=== PATIENT | male | born 1970 | race Caucasian/White ===

== ENCOUNTER 2019-08-10 12:43 | Emergency (ER) | payer MEDICAID, SELFPAY ==
[2019-08-10 12:45] VITALS: BP 122/85; PULSE 93; RESP 16; TEMP 36.7; O2SAT 98; BMI 29.5
--- NOTE | 2019-08-10 13:03 | RAD_ITS ---
STUDY: X-RAY - LEFT KNEE REASON FOR EXAM: Male, 49 years old. FALL LAST SATURDAY. PAIN. TECHNIQUE: 4 view(s) of the knee. COMPARISON: None. FINDINGS: Normal visualized distal femur. Normal visualized proximal tibia and fibula. Normal proximal tibiofibular articulation. Normal medial femorotibial compartment. Normal lateral femorotibial compartment. Normal patellofemoral articulation. The soft tissue structures are unremarkable. RAD/Knee 4 or More Views IMPRESSION: Normal x-ray examination of the knee. Electronically Signed: Anuj Goldman, at 14:00 EST , Service support ,
--- NOTE | 2019-08-10 13:03 | RAD_ITS ---
STUDY: X-RAY - LEFT ELBOW REASON FOR EXAM: Male, 49 years old. FALL LAST SATURDAY. PAIN. TECHNIQUE: 3 view(s) of the elbow. COMPARISON: None. FINDINGS: Normal visualized humerus, radius and ulna. Normal radiocapitellar and ulnotrochlear articulations. The soft tissue structures are unremarkable. RAD/Elbow min 3 Views IMPRESSION: Normal x-ray examination of the elbow. Electronically Signed: Anuj Goldman, at 14:00 EST , Service support ,
--- NOTE | 2019-08-10 13:03 | RAD_ITS ---
STUDY: X-RAY CHEST REASON FOR EXAM: Male, 49 years old. COUGH, HISTORY OF ASTHMA. TECHNIQUE: PA and lateral views of the chest. COMPARISON: Comparison is made with prior examination dated June 03, 2012. FINDINGS: Stable minimal increased markings at the lung bases suggestive of mild basilar scarring. No focal infiltrate is seen. There is no demonstrated pleural abnormality. Normal size heart. Normal mediastinum and kim. Normal visualized pulmonary arteries. Normal visualized aortic arch and descending thoracic aorta. Normal visualized thoracic spine. Normal visualized ribs, clavicles, and shoulders. There is no demonstrated abnormality of the visualized soft tissue structures of the upper abdomen. RAD/Chest PA and Lateral IMPRESSION: Stable examination with mild degree of increased markings at the lung bases suggest mild basilar scarring. Electronically Signed: Anuj Goldman, at 14:01 EST , Service support ,
--- NOTE | 2019-08-10 13:03 | ED.VIS.GEN ---
History of Present Illness Chief Complaint: Lower Extremity Injury Narrative: Patient states that last week he slipped and fell on the ice injuring left elbow and left knee. He states he feels like his left elbow is dislocated and points near the olecranon as a source of pain. He points to the abrasion that is well-healing on the left anterior knee and states that the kneecap has been dislocated laterally. He also reports that he has had been diagnosed as a viral upper respiratory illness and wonders if he now has bronchitis. He is a smoker and has asthma. He uses Symbicort and pro-air. No fevers. Past Medical History - Allergies and Home Meds Allergies/Adverse Reactions: Allergies benzonatate [From Tessalon Perles] Allergy (Verified 08/10/19 12:45) Hives cefuroxime axetil [From Ceftin] Allergy (Verified 08/10/19 12:45) Hives cephalexin monohydrate [From Keflex] Allergy (Verified 08/10/19 12:45) Hives sulfamethoxazole [From Bactrim] Allergy (Verified 08/10/19 12:45) Itching trimethoprim [From Bactrim] Allergy (Verified 08/10/19 12:45) Itching acetaminophen [From [place]] Adverse Reaction (Verified 08/10/19 12:45) Upset Stomach hydrocodone Adverse Reaction (Verified 08/10/19 12:45) Upset Stomach hydrocodone bitartrate [From [place]] Adverse Reaction (Verified 08/10/19 12:45) Upset Stomach Primary Care Physician: [facility] Doctor,Out of [NON-STAFF] - Smoking Status: Current every day smoker Review of Systems General: Denies: Chills, Fever, Sweats Eyes: Denies: Visual changes - bilaterally, Diplopia ENT: Denies: Rhinorrhea, Sore throat Cardiovascular: Denies: Chest pain, Palpitations Respiratory: Reports: Dyspnea, Cough, Sputum. Denies: Dyspnea on exertion Gastrointestinal: Denies: Abdominal pain, Nausea, Vomiting, Diarrhea, Melena, Hematochezia Genitourinary: Denies: Dysuria, Hematuria, Frequency Musculoskeletal: Reports: Extremity Pain, -. Denies: Back pain Skin: Reports: Abrasions. Denies: Rash, Wounds Neurological: Denies: Headache, Weakness, Numbness Physical Exam Vital Signs/Narrative: Vital Signs Temp Pulse Resp BP Pulse Ox 08/10/19 12:45 98.1 F 93 16 122/85 H 98 Inital Vital Signs reviewed: Yes General: Well nourished, Well developed, No Acute Distress Head: Normocephalic, Atraumatic Eyes: Perrl, EOMI ENT: Moist mucous membranes, No rhinorrhea Neck: Supple, Nontender Cardiovascular: Regular rate, Regular rhythm, No murmurs Respiratory: No distress, Chest nontender, Rhonchi, Wheezing Abdomen: Soft, Nontender, Nondistended, Normal bowel sounds Back: Nontender, Normal Inspection Extremities: No edema, Tenderness - Tenderness palpation the posterior aspect of the left elbow. Full range of motion. Skin: Normal color, No rash Neurological: Alert, Oriented x3, Cranial nerves II-XII grossly intact, Normal Strength, Normal Sensation Psychological: Normal affect, Normal Mood Diagnostic/Tx/Re-eval - Medical Decision Making Test x-ray was negative for infiltrate. X-rays of the elbow and the left knee were negative for acute fracture. He will be discharged home with supportive care. For his breathing a encouraged him to use his albuterol MDI as well as prescribing him a course of prednisone. Follow-up as needed with primary care return if worsening or concerns ED Disposition - Plan for ED Patient: Disposition: Psychiatric Hospital or Unit Diagnosis: Left elbow contusion, Contusion of left knee, Bronchitis Instructions: BRONCHITIS with Wheezing (Child) Prescriptions: Prednisone [Deltasone] 60 mg PO DAILY #15 tab Prescription Printed Referrals: [facility],Out of [NON-STAFF] - Additional Instructions: Please follow-up with your primary care physician. I would recommend using your albuterol MDI 3 puffs every 3 hours at minimum.
== END 2019-08-10 14:48 | disposition home or self-care (01) ==
PROVIDERS: Emergency Provider Emergency Medicine; PCP Family Medicine
DX: S50.02XA Contusion of left elbow, initial encounter (principal); S80.02XA Contusion of left knee, initial encounter; W00.0XXA Fall on same level due to ice and snow, initial encounter; J40 Bronchitis, not specified as acute or chronic; Z88.1 Allergy status to other antibiotic agents; Z88.2 Allergy status to sulfonamides; Z88.5 Allergy status to narcotic agent
CPT/HCPCS: 71046; 73080; 73564; 99283

== ENCOUNTER 2020-06-30 10:50 | Emergency (ER) | payer MEDICAID, SELFPAY ==
[2020-06-30 10:51] VITALS: BP 150/101; PULSE 91; RESP 20; TEMP 36.1; O2SAT 96; BMI 31.4
--- NOTE | 2020-06-30 10:52 | EKG12_ITS ---
Test Reason : DYSRHYTHMIA Blood Pressure : / mmHG Vent. Rate : 090 BPM Atrial Rate : 090 BPM P-R Int : 176 ms QRS Dur : 098 ms QT Int : 356 ms P-R-T Axes : 011 001 -04 degrees QTc Int : 435 ms Normal sinus rhythm Normal ECG Confirmed by MAXIMILIAN ACHARYA, HALEY ([id number]), clinical editor SYLVIE MCDONALD ([id number]) on 07/06/2020 10:21:51 AM Referred By: AMANDA Confirmed By:PABLO YAO MD
--- NOTE | 2020-06-30 10:52 | RAD_ITS ---
STUDY: X-RAY CHEST REASON FOR EXAM: Male, 50 years old. CHEST PAINS X SEVERAL DAYS TECHNIQUE: Single AP portable view of the chest. COMPARISON: Comparison is made with prior study dated 08/10/2019. FINDINGS: EKG electrodes are seen. There is evidence of vascular congestion and mild CHF with bibasilar atelectasis/infiltrates slightly worse on the right side. There is no demonstrated pleural abnormality. Normal size heart. Normal mediastinum and kim. Normal visualized pulmonary arteries. Normal visualized aortic arch and descending thoracic aorta. Normal visualized thoracic spine. Normal visualized ribs, clavicles, and shoulders. There is no demonstrated abnormality of the visualized soft tissue structures of the upper abdomen. RAD/Chest 1 View (Portable) IMPRESSION: Findings suggestive of a mild degree of CHF with the bibasilar atelectasis and/or infiltrates worse at the right lung base. Electronically Signed: Anuj Goldman, at 11:19 EST , Service support ,
--- NOTE | 2020-06-30 11:07 | ED.VIS.GEN ---
History of Present Illness Chief Complaint: Chest Other Informant: Patient Narrative: 50-year-old male states that he just recovered from Covid. Tells me his positive test was June 15. States that beginning last he has been experiencing shortness of breath. He has been to outside hospital multiple times. He states they have done chest x-rays, CTA, breathing treatments, and he has been on azithromycin. He states he did go there today because he was near here. He states he quit smoking when he developed Covid. He states he takes inhalers for asthma. Patient eddie presents dramatically in triage clutching his chest saying he cannot breathe. However once you talk to him he calms down begins breathing 18 times a minute has a pulse ox of 97% on room air. He was not tachycardic. He was brought back to the room for evaluation. Past Medical History - Allergies and Home Meds Allergies/Adverse Reactions: Allergies benzonatate [From Tessalon Perles] Allergy (Verified 06/30/20 11:15) Hives cefuroxime axetil [From Ceftin] Allergy (Verified 06/30/20 11:15) Hives cephalexin monohydrate [From Keflex] Allergy (Verified 06/30/20 11:15) Hives sulfamethoxazole [From Bactrim] Allergy (Verified 06/30/20 11:15) Itching trimethoprim [From Bactrim] Allergy (Verified 06/30/20 11:15) Itching acetaminophen [From [place]] Adverse Reaction (Verified 06/30/20 11:15) Upset Stomach hydrocodone Adverse Reaction (Verified 06/30/20 11:15) Upset Stomach hydrocodone bitartrate [From [place]] Adverse Reaction (Verified 06/30/20 11:15) Upset Stomach Primary Care Physician: Rhonda Padilla DO [Primary Care Provider] - Past Medical History: - - Anxiety PTSD asthma Surgical History: noncontributory Smoking Status: Current every day smoker Drugs: - - Denies Review of Systems General: Denies: Chills, Fever, Sweats Eyes: Denies: Visual changes - bilaterally, Diplopia ENT: Denies: Rhinorrhea, Sore throat Cardiovascular: Denies: Chest pain, Palpitations Respiratory: Reports: Dyspnea, Cough, Dyspnea on exertion Gastrointestinal: Denies: Abdominal pain, Nausea, Vomiting, Diarrhea, Melena, Hematochezia Genitourinary: Denies: Dysuria, Hematuria, Frequency Musculoskeletal: Denies: Back pain, Extremity Pain Skin: Denies: Rash, Wounds Neurological: Denies: Headache, Weakness, Numbness Physical Exam Vital Signs/Narrative: Vital Signs Temp Pulse Resp BP Pulse Ox 06/30/20 10:51 97 F L 91 20 H 150/101 H 96 Inital Vital Signs reviewed: Yes General: Well nourished, Well developed, No Acute Distress Head: Normocephalic, Atraumatic Eyes: Perrl, EOMI ENT: Moist mucous membranes, No rhinorrhea Neck: Supple, Nontender Cardiovascular: Regular rate, Regular rhythm, No murmurs Respiratory: No distress, Chest nontender, Wheezing - Light expiratory wheeze Abdomen: Soft, Nontender, Nondistended, Normal bowel sounds Back: Nontender, Normal Inspection Extremities: Nontender, No edema Skin: Normal color, No rash Neurological: Alert, Oriented x3, Cranial nerves II-XII grossly intact, Normal Strength, Normal Sensation Psychological: Normal affect, Normal Mood Diagnostic/Tx/Re-eval Clinical Impression(s) from Imaging Studies Chest X-Ray 06/30/20 10:52 IMPRESSION: Findings suggestive of a mild degree of CHF with the bibasilar atelectasis and/or infiltrates worse at the right lung base. Electronically Signed: Anuj Goldman, at 11:19 EST , Service support , Laboratory Last Values WBC 9.6 K/mm3 (4.4-11.0) 06/30/20 11:12 RBC 4.86 M/mm3 (4.6-6.2) 06/30/20 11:12 Hgb 14.0 g/dL (13.0-16.5) 06/30/20 11:12 Hct 41.8 % (40-54) 06/30/20 11:12 MCV 86.0 fL (80-94) 06/30/20 11:12 MCH 28.8 pg (27.0-32.0) 06/30/20 11:12 MCHC 33.5 g/dL (32-36) 06/30/20 11:12 RDW Std Deviation 38.8 fl (35.1-43.9) 06/30/20 11:12 RDW Coeff of Hai 12.3 % (11.6-14.6) 06/30/20 11:12 Plt Count 248 K/mm3 (150-450) 06/30/20 11:12 MPV 9.4 fl (6.2-12.0) 06/30/20 11:12 Immature Gran % (Auto) 0.400 % (0.0-0.9) 06/30/20 11:12 Neut % (Auto) 69.1 % (47-70) 06/30/20 11:12 Lymph % (Auto) 18.8 % (19-41) L 06/30/20 11:12 Long % (Auto) 9.8 % (0-10) 06/30/20 11:12 Eos % (Auto) 1.6 % (0-5) 06/30/20 11:12 Baso % (Auto) 0.3 % (0-1) 06/30/20 11:12 Absolute Neuts (auto) 6.7 X10^3/uL (2.0-7.7) 06/30/20 11:12 Absolute Lymphs (auto) 1.81 X10^3/uL (0.83-4.51) 06/30/20 11:12 Nucleated RBC % 0 % (0-5) 06/30/20 11:12 Reactive Lymphocytes 1+ 06/30/20 11:12 Sodium 135 mmol/L (136-145) L 06/30/20 11:12 Potassium 3.6 mmol/L (3.5-5.1) 06/30/20 11:12 Chloride 101 mmol/L (98-107) 06/30/20 11:12 Carbon Dioxide 27.0 mmol/L (21.0-32.0) 06/30/20 11:12 Anion Gap 7 (5-15) 06/30/20 11:12 BUN 6 mg/dL (7-18) L 06/30/20 11:12 Creatinine 0.91 mg/dL (0.70-1.30) 06/30/20 11:12 Estim Creat Clear Calc 112.19 ml/min 06/30/20 11:12 Est GFR (MDRD) Af Amer 114 mL/min (>60) 06/30/20 11:12 Est GFR (MDRD) Non-Af 94 mL/min (>60) 06/30/20 11:12 BUN/Creatinine Ratio 6.6 RATIO (10-20) L 06/30/20 11:12 Glucose 163 mg/dL (74-106) H 06/30/20 11:12 Calcium 8.9 mg/dL (8.5-10.1) 06/30/20 11:12 Troponin I < 0.015 ng/mL (<0.045) 06/30/20 11:12 B-Natriuretic Peptide 2.6 pg/mL (0-100) 06/30/20 11:12 - EKG Initial EKG Interpretation: Sinus Rhythm - KG demonstrates a normal sinus rhythm at a rate of 90 without concerning features of ACS or ectopy - Medical Decision Making Patient's work-up here is essentially negative. His lung sounds are clear to after a DuoNeb. I also gave him prednisone and a dose of Ativan. Watching him outside of his room and on the monitor he is breathing normally in the satting normal. Clifford walk into the room he becomes tachypneic. I will prescribe the patient prednisone. Advised him that he should use his inhaler every couple hours. And when to get him a pocket chamber. Follow-up with primary care ED Disposition - Plan for ED Patient: Disposition: Home or Assisted Living Diagnosis: Wheezing, Dyspnea Prescriptions: Prednisone [Deltasone] 60 mg PO DAILY #15 tab Prescription Printed Referrals: Rhonda Padilla DO [Primary Care Provider] - As soon as possible
[2020-06-30 11:14] VITALS: PULSE 94; RESP 22
[2020-06-30] MEDS: predniSONE 20 MG Tablet 60 MG PO (11:14)
[2020-06-30] MEDS: Ipratropium/Albuterol Sulfate 3 ML AMPUL.NEB INHALATION (11:14)
[2020-06-30] MEDS: LORazepam 0.5 MG Tablet PO (11:14)
[2020-06-30 11:15] VITALS: O2SAT 97
[2020-06-30 11:18] LABS: Absolute Lymphocyte Count 1.81 X10^3/uL (0.83-4.51); Absolute Neutrophil Count 6.7 X10^3/uL (2.0-7.7); Basophil# 0.03 X10^3/uL; Basophil% 0.3 % (0-1); Eosinophil# 0.15 X10^3/uL; Eosinophils% 1.6 % (0-5); Hematocrit 41.8 % (40-54); Lymphocyte # 1.81 X10^3/ul (4.0); Lymphocyte % 18.8 % (19-41); Mean Corp Hgb Conc 33.5 g/dL (32-36); Mean Corpuscular Hgb 28.8 pg (27.0-32.0); Mean Platelet Vol. 9.4 fl (6.2-12.0); Monocyte# 0.94 X10^3/uL; Monocyte% 9.8 % (0-10); NRBC Flagged by Analyzer 0 % (0-5); Neutrophil # 6.66 X10^3/uL (2.7-7.7); Neutrophil % 69.1 % (47-70); POSITIVE MORPHOLOGY YES; Platelet Count 248 K/mm3 (150-450); RBC Distribution Width CV 12.3 % (11.6-14.6); RBC Distribution Width SD 38.8 fl (35.1-43.9); Red Blood Count 4.86 M/mm3 (4.6-6.2); White Blood Count 9.6 K/mm3 (4.4-11.0)
[2020-06-30 11:20] LABS: Differential Indicated SCAN CRITERIA MET
[2020-06-30 11:39] LABS: Anion Gap 7 (5-15); BUN 6 mg/dL (7-18); BUN/Creat Ratio 6.6 RATIO (10-20); Calcium,Total 8.9 mg/dL (8.5-10.1); Chloride 101 mmol/L (98-107); Creatinine, Serum 0.91 mg/dL (0.70-1.30); EST Glomerular Filtration Rate 94 mL/min (>60); Est Glom Filt Rate - Afr Amer 114 mL/min (>60); Estimated Creatinine Clearance 112.19 ml/min; Glucose 163 mg/dL (74-106); Potassium 3.6 mmol/L (3.5-5.1); Sodium Level 135 mmol/L (136-145)
[2020-06-30 12:02] LABS: Reactive Lymphocyte 1+
[2020-06-30 12:25] LABS: BNP,B-Type NATRIURETIC PEPTIDE 2.6 pg/mL (0-100)
[2020-06-30] MEDS: INHALER, ASSIST DEVICES 1 EACH SPACER INHALATION (12:38)
== END 2020-06-30 12:39 | disposition home or self-care (01) ==
PROVIDERS: Emergency Provider Emergency Medicine; PCP Family Medicine
DX: R06.2 Wheezing (principal); R06.00 Dyspnea, unspecified; J45.909 Unspecified asthma, uncomplicated; F17.200 Nicotine dependence, unspecified, uncomplicated; Z88.1 Allergy status to other antibiotic agents; Z88.2 Allergy status to sulfonamides; Z88.5 Allergy status to narcotic agent; Z86.19 Personal history of other infectious and parasitic diseases
CPT/HCPCS: 71045; 80048; 83880; 84484; 85025; 93005; 94640; 99284; A4216

== ENCOUNTER → 2020-10-28 09:03 | Outpatient (CLI) | payer MEDICAID, SELFPAY ==
[2020-10-28 10:34] LABS: Hemoglobin A1c 9.3 % (3.8-5.6)
[2020-10-28 10:42] LABS: Cholesterol 226 mg/dL (200); High Density Lipoprotein 50 mg/dL; Triglycerides 153 mg/dL; Very Low Density Lipoprotein 31 mg/dL (5-40)
== END ==
PROVIDERS: PCP Family Medicine; Referring Provider Family Medicine; Visit Provider Family Medicine
DX: E11.65 Type 2 diabetes mellitus with hyperglycemia (principal)
CPT/HCPCS: 36415; 80061; 83036

== ENCOUNTER 2020-12-23 17:38 | Emergency (ER) | payer MEDICAID, SELFPAY ==
[2020-12-23 17:39] VITALS: BP 112/79; PULSE 107; RESP 35; TEMP 36.5; O2SAT 97; BMI 32.2
[2020-12-23 17:59] VITALS: BP 159/137; PULSE 98; RESP 20; TEMP 36.7; O2SAT 99
--- NOTE | 2020-12-23 18:01 | EKG12_ITS ---
Test Reason : Blood Pressure : / mmHG Vent. Rate : 096 BPM Atrial Rate : 096 BPM P-R Int : 180 ms QRS Dur : 094 ms QT Int : 352 ms P-R-T Axes : 019 002 003 degrees QTc Int : 444 ms Normal sinus rhythm with sinus arrhythmia Minimal voltage criteria for LVH, may be normal variant Cannot rule out Anterior infarct , age undetermined Abnormal ECG Confirmed by JUANY ACHARYA, BERNY ([id number]), film editor SYLVIE MCDONALD ([id number]) on 12/26/2020 1:37:34 PM Referred By: SOUMYA Confirmed By:BERNY HARRINGTON MD
--- NOTE | 2020-12-23 18:02 | EDS_ITS ---
HPI History of Present Illness Chief Complaint: General Illness Informant: patient Onset/Context/Timing Onset: Days Context: Gradual Onset Current Severity: Moderate Maximum Severity: Moderate Narrative Narrative: Patient presents with multiple complaints. He states he has been working 3 full-time jobs for the last 11 days and has not slept. He reports having chest pressure over the past 3 days. He thinks he just exhausted himself to the point where he now has nausea, vomiting, chest pressure, shortness of breath. Patient did have Covid late 2019. No fever currently. [facility] Medical History (Updated 12/23/20 @ 19:[address] Margi Quintana MD) Acid reflux Anxiety Diabetes High cholesterol Hypertension Insomnia Home Medications lisinopril 10 mg PO DAILY 06/14/14 [History Last Taken Unknown] simvastatin 10 mg PO QHS 03/29/17 [History Last Taken Unknown] famotidine 40 mg PO QHS 06/30/20 [History Last Taken Unknown] glyburide 10 mg PO BID 06/30/20 [History Last Taken Unknown] insulin glargine 14 units SQ DAILY 06/30/20 [History Last Taken Unknown] pioglitazone 45 mg PO DAILY 06/30/20 [History Last Taken Unknown] potassium chloride 20 meq PO BID 06/30/20 [History Last Taken Unknown] prednisone 60 mg PO DAILY #15 tab 06/30/20 [Rx Last Taken Unknown] venlafaxine 150 mg PO DAILY 06/30/20 [History Last Taken Unknown] budesonide-formoterol [Symbicort] 2 puff INHALATION BID #10.2 g 12/23/20 [Rx Last Taken Unknown] ondansetron 4 mg PO Q8H PRN #10 tab 12/23/20 [Rx Last Taken Unknown] tiotropium bromide [Spiriva Respimat] 1 puff INHALATION DAILY #4 g 12/23/20 [Rx Last Taken Unknown] Allergy/AdvReac Type Severity Reaction Status Date / Time benzonatate Allergy Hives Verified 12/23/20 17:39 [From Tessalon Perles] cefuroxime axetil Allergy Hives Verified 12/23/20 17:39 [From Ceftin] cephalexin monohydrate Allergy Hives Verified 12/23/20 17:39 [From Keflex] sulfamethoxazole Allergy Itching Verified 12/23/20 17:39 [From Bactrim] trimethoprim [From Bactrim] Allergy Itching Verified 12/23/20 17:39 acetaminophen [From [place]] AdvReac Upset Verified 12/23/20 17:39 Stomach hydrocodone AdvReac Upset Verified 12/23/20 17:39 Stomach hydrocodone bitartrate AdvReac Upset Verified 12/23/20 17:39 [From [place]] Stomach Social History Smoking Status: Current every day smoker tobacco type: cigarettes ROS ROS ED Constitutional Constitutional ED: Denies chills or fever(s) Eyes Eyes: Denies change in vision ENT ENT ED: Denies sore throat Cardiovascular Cardiovascular: Reports chest pain Respiratory/Chest Respiratory/Chest: Denies cough or dyspnea Gastrointestinal Gastrointestinal: Reports nausea and vomiting; Denies diarrhea Genitourinary Genitourinary ED: Denies dysuria Musculoskeletal Musculoskeletal: Reports myalgias; Denies back pain Integumentary Denies rash Neurologic Neurologic: Denies headache(s) or weakness Psychiatric Psychiatric: Denies anxiety or depression Endocrine Endocrinology: Reports polydipsia; Denies polyuria Allergic/Immunologic Allergic/Immunologic ED: Denies urticaria EXAM Physical Exam Const Vital Signs: 12/23/20 17:39 12/23/20 17:59 12/23/20 18:43 Temperature 97.7 F L 98.1 F 98.1 F Temperature Source Temporal Temporal Temporal Pulse Rate 107 H 98 99 Respiratory Rate 35 H 20 H 17 Respiratory Effort Short of Breath Labored Respiratory Pattern Tachypnea Blood Pressure 112/79 159/137 H 123/71 H Blood Pressure Mean 90 144 88 Pulse Ox 97 99 98 Oxygen Delivery Method Room Air Room Air Room Air 12/23/20 19:00 Temperature 98.0 F Temperature Source Oral Pulse Rate 100 Respiratory Rate 18 Respiratory Effort Respiratory Pattern Blood Pressure 159/108 H Blood Pressure Mean 125 Pulse Ox 97 Oxygen Delivery Method Room Air Positive well nourished and well developed General Appearance ED: well developed HEENT Reports normocephalic and head/scalp atraumatic Eyes PERRL and EOMs intact bilaterally Neck supple Chest Wall inspection of chest normal and palpation of chest normal Resp normal respiratory effort and clear to auscultation bilaterally Cardio regular rhythm Rate: tachycardic GI non-tender Auscultation: hypoactive bowel sounds Palpation: soft Extremity normal to inspection Neuro oriented x3 and no sensory deficits noted Sensorium / Orientation: alert Motor Exam: strength 5/5 throughout Psych mental status grossly normal Skin no rashes or lesions noted MDM MDM MDM Narrative Medical decision making narrative: IV was established and patient was given a liter IV fluid. Patient is placed on color television console monitor and EKG, labs, chest x-ray obtained. Lab Data Attestation: I reviewed the patient's lab results. Labs: Laboratory Results - last 24 hr 12/23/20 12/23/20 12/23/20 18:10 18:10 18:44 WBC 13.0 H RBC 5.19 Hgb 15.1 Hct 45.5 MCV 87.7 MCH 29.1 MCHC 33.2 RDW Std Deviation 45.2 H RDW Coeff of Hai 14.2 Plt Count 302 MPV 9.6 Immature Gran % (Auto) 0.400 Neut % (Auto) 72.8 H Lymph % (Auto) 17.2 L [place] % (Auto) 8.4 Eos % (Auto) 0.8 Baso % (Auto) 0.4 Absolute Neuts (auto) 9.5 H Absolute Lymphs (auto) 2.23 Nucleated RBC % 0 Sodium 142 Potassium 3.3 L Chloride 109 H Carbon Dioxide 23.0 Anion Gap 10 BUN 13 Creatinine 0.94 Estim Creat Clear Calc 114.86 Est GFR (MDRD) Af Amer 109 Est GFR (MDRD) Non-Af 90 BUN/Creatinine Ratio 13.8 Glucose 151 H Calcium 9.4 Total Bilirubin 0.80 Direct Bilirubin 0.22 AST 32 ALT 30 Alkaline Phosphatase 138 H Troponin I < 0.015 Total Protein 7.4 Albumin 3.8 Globulin 3.6 Urine Color Yellow Urine Clarity Clear Urine pH 5.0 Ur Specific [place] 1.025 Urine Protein 30 H Urine Glucose (UA) Normal Urine Ketones 150 A* Urine Occult Blood Negative Urine Nitrite Negative Urine Bilirubin Negative Urine Urobilinogen 1 H Ur Leukocyte Esterase 25 H Urine RBC 0-5 SEEN Urine WBC 0 SEEN Ur Squamous Epith Cells 0 SEEN Urine Bacteria 0 SEEN Hyaline Casts 5-10 SEEN Urine Mucus 3+ Radiography Chest X-Ray - ED: 1 View, Normal, Heart, Lungs and Mediastinum Diagnostic Testing: Radiology Impression Chest X-Ray 12/23/20 18:18 IMPRESSION: No radiographic evidence of acute cardiopulmonary disease. at 1828 Reported and signed by: Eleazar Roper MD Electronically Signed: Eleazar Roper MD at 18:27 EDT Tel , Service support , EKG Initial EKG: Attestation: I personally reviewed and interpreted this EKG as follows: Interpretation: Sinus Rhythm (Sinus at 96 with no acute ischemia.) Treatment and Re-Evaluation Comments:: Once EKG was obtained and normal QTC noted patient was given Zofran for his nausea. On repeat evaluation he does feel improved. He will be given prescriptions for Zofran and he did ask for refills on his Symbicort and Spiriva as he cannot find those medications. They will be sent to the pharmacy for him. Discharge Plan Triage Chief Complaint: General Illness ED Provider: Margi Quintana Dx/Rx/DC Orders Clinical Impression: Dehydration Instructions: ED Dehydration (Adult) Prescriptions: New ondansetron 4 mg tablet,disintegrating 4 mg PO Q8H PRN (Reason: nausea and vomiting) Qty: 10 RF: 0 budesonide-formoterol [Symbicort] 160-4.5 mcg/actuation HFA aerosol inhaler 2 puff inhalation BID Qty: 10.2 RF: 0 Spiriva Respimat 1.25 mcg/actuation mist 1 puff inhalation DAILY Qty: 4 RF: 0 No Action lisinopril 10 MG tablet 10 mg PO DAILY RF: 0 simvastatin 10 MG tablet 10 mg PO QHS RF: 0 glyburide 5 MG tablet 10 mg PO BID RF: 0 famotidine 40 MG tablet 40 mg PO QHS RF: 0 venlafaxine 150 MG capsule 150 mg PO DAILY RF: 0 pioglitazone 45 MG tablet 45 mg PO DAILY RF: 0 potassium chloride 20 MEQ tablet 20 meq PO BID RF: 0 insulin glargine 100 UNITS/ML insulin pen 14 units SQ DAILY RF: 0 prednisone 20 MG tablet 60 mg PO DAILY Qty: 15 RF: 0 Primary Care Provider: Rhonda Padilla Referrals: Rhonda Padilla DO [Primary Care Provider] - 1 Week Disposition Disposition: Home, self care
--- NOTE | 2020-12-23 18:18 | RAD_ITS ---
EXAM: XR CHEST, 1 VIEW : 1970 CLINICAL INDICATION: cp TECHNIQUE: Frontal view of the chest. This report was created using [employer] report generation technology. COMPARISON: 06/30/2020 FINDINGS: LUNGS AND PLEURAL SPACES: Unremarkable. No consolidation or edema. No pneumothorax. No effusion. HEART: Unremarkable. Cardiac silhouette not enlarged. MEDIASTINUM: Central airways and mediastinal contour are unremarkable. BONES/JOINTS: Unremarkable. SOFT TISSUES: Unremarkable. RAD/Chest 1 View (Portable) IMPRESSION: No radiographic evidence of acute cardiopulmonary disease. at 1828 Reported and signed by: Eleazar Roper MD Electronically Signed: Eleazar Roper MD at 18:27 EDT Tel , Service support ,
[2020-12-23 18:21] LABS: Absolute Lymphocyte Count 2.23 X10^3/uL (0.83-4.51); Absolute Neutrophil Count 9.5 X10^3/uL (2.0-7.7); Basophil# 0.05 X10^3/uL; Basophil% 0.4 % (0-1); Eosinophils% 0.8 % (0-5); Hematocrit 45.5 % (40-54); Hemoglobin 15.1 g/dL (13.0-16.5); Lymphocyte # 2.23 X10^3/ul (0.83-4.51); Lymphocyte % 17.2 % (19-41); Mean Corp Hgb Conc 33.2 g/dL (32-36); Mean Corpuscular Hgb 29.1 pg (27.0-32.0); Mean Corpuscular Volume 87.7 fL (80-94); Mean Platelet Vol. 9.6 fl (6.2-12.0); Monocyte# 1.09 X10^3/uL; Monocyte% 8.4 % (0-10); NRBC Flagged by Analyzer 0 % (0-5); Neutrophil # 9.47 X10^3/uL (2.7-7.7); Neutrophil % 72.8 % (47-70); Platelet Count 302 K/mm3 (150-450); RBC Distribution Width CV 14.2 % (11.6-14.6); RBC Distribution Width SD 45.2 fl (35.1-43.9); Red Blood Count 5.19 M/mm3 (4.6-6.2)
[2020-12-23] MEDS: 0.9% Normal Saline 1,000 ML 1000 ML IV (18:23)
[2020-12-23 18:42] LABS: AST(SGOT) 32 U/L (15-37); Alanine Aminotransfer ALT/SGPT 30 U/L (16-61); Albumin, Serum 3.8 g/dL (3.2-5.0); Alkaline Phosphatase 138 U/L (45-117); Anion Gap 10 (5-15); BUN 13 mg/dL (7-18); BUN/Creat Ratio 13.8 RATIO (10-20); Bilirubin, Direct 0.22 mg/dL (0.00-0.30); Calcium,Total 9.4 mg/dL (8.5-10.1); Chloride 109 mmol/L (98-107); Creatinine, Serum 0.94 mg/dL (0.70-1.30); EST Glomerular Filtration Rate 90 mL/min (>60); Est Glom Filt Rate - Afr Amer 109 mL/min (>60); Estimated Creatinine Clearance 114.86 ml/min; Globulin 3.6 g/dL (2.2-4.2); Glucose 151 mg/dL (74-106); Potassium 3.3 mmol/L (3.5-5.1); Protein, Total 7.4 g/dL (6.4-8.2); Sodium Level 142 mmol/L (136-145)
[2020-12-23 18:43] VITALS: BP 123/71; PULSE 99; RESP 17; TEMP 36.7; O2SAT 98
[2020-12-23] MEDS: Ketorolac 30 MG/ML Syringe IV (18:46)
[2020-12-23] MEDS: Ondansetron 4 MG/2 ML Vial IV (18:46)
[2020-12-23 18:59] LABS: Bacteria 0 SEEN /hpf (None Seen); Squamous Epithelial Cells - UA 0 SEEN /hpf (0-5); White Blood Cells 0 SEEN /hpf (0-5)
[2020-12-23 19:00] VITALS: BP 159/108; PULSE 100; RESP 18; TEMP 36.7; O2SAT 97
[2020-12-23 19:02] LABS: Color, Urine Yellow (Yellow); Glucose, Dipstick Normal (Normal); Leukocyte Esterase-Dipstick 25 /ul (Negative); Nitrite-Dipstick Negative (Negative); Occult Blood-Urine Negative /ul (Negative); Protein-Dipstick 30 mg/dl (Negative); Specific Gravity, Urine 1.025 (1.002-1.030); Urine Bilirubin Dipstick Negative (Negative); Urine Clarity Clear (Clear); Urine Urobilinogen 1 mg/dl (Normal)
[2020-12-23 19:05] LABS: Ketone-Dipstick 150 mg/dl (Negative)
[2020-12-23 19:11] LABS: Mucous, Urine 3+ /hpf (<or=2+); Red Blood Cells-Urine 0-5 SEEN /hpf (0-5)
[2020-12-23 19:12] LABS: Hyaline Cast 5-10 SEEN /lpf (0-5)
[2020-12-23 19:38] VITALS: BP 200/166; PULSE 90; RESP 22; O2SAT 95
[2020-12-23] MEDS: 0.9% Normal Saline 1,000 ML 150 ML IV (19:40)
[2020-12-23 19:50] VITALS: BP 129/55; PULSE 90; RESP 18; O2SAT 99
== END 2020-12-23 19:51 | disposition home or self-care (01) ==
PROVIDERS: Emergency Provider Emergency Medicine; PCP Family Medicine
DX: E86.0 Dehydration (principal); R11.2 Nausea with vomiting, unspecified; F17.210 Nicotine dependence, cigarettes, uncomplicated; E78.00 Pure hypercholesterolemia, unspecified; I10 Essential (primary) hypertension; E11.9 Type 2 diabetes mellitus without complications; F41.9 Anxiety disorder, unspecified; K21.9 Gastro-esophageal reflux disease without esophagitis; G47.00 Insomnia, unspecified
CPT/HCPCS: 71045; 80048; 80076; 81001; 84484; 85025; 93005; 99285; J7030; J2405

== ENCOUNTER 2021-01-06 23:05 | Emergency (ER) | payer MEDICAID, SELFPAY ==
[2021-01-06 23:07] VITALS: BP 157/81; PULSE 85; RESP 16; TEMP 36.7; O2SAT 95; BMI 33.1
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
[2021-01-07] MEDS: oxyCODONE 5 MG Tablet 10 MG PO (00:29)
[2021-01-07] MEDS: Doxycycline 100 MG CAPSULE PO (00:29)
== END 2021-01-07 00:35 | disposition home or self-care (01) ==
LOC: ED 01-07 00:12
PROVIDERS: Emergency Provider Emergency Medicine; PCP Family Medicine
DX: T21.29XA Burn of second degree of other site of trunk, initial encounter (principal); T21.26XA Burn of second degree of male genital region, initial encounter; X08.8XXA Exposure to other specified smoke, fire and flames, initial encounter; Y93.9 Activity, unspecified; Y92.89 Other specified places as the place of occurrence of the external cause; Y99.9 Unspecified external cause status; F17.210 Nicotine dependence, cigarettes, uncomplicated; K21.9 Gastro-esophageal reflux disease without esophagitis; F41.9 Anxiety disorder, unspecified; E11.9 Type 2 diabetes mellitus without complications; E78.00 Pure hypercholesterolemia, unspecified; I10 Essential (primary) hypertension; G47.00 Insomnia, unspecified
CPT/HCPCS: 99285

== ENCOUNTER 2021-03-31 05:54 | Emergency (ER) | payer MEDICAID, SELFPAY ==
[2021-03-31 05:55] VITALS: BP 96/68; PULSE 88; RESP 18; TEMP 36.6; O2SAT 96; BMI 29.4
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
[2021-03-31 06:25] LABS: Bedside Glucose 104 mg/dL (70-110)
[2021-03-31 06:53] VITALS: BP 96/68; PULSE 88; RESP 18; O2SAT 96
== END 2021-03-31 06:54 | disposition home or self-care (01) ==
LOC: ED 06:36
PROVIDERS: Emergency Provider Emergency Medicine; PCP Family Medicine
DX: S20.219A Contusion of unspecified front wall of thorax, initial encounter (principal); Y09 Assault by unspecified means; E11.9 Type 2 diabetes mellitus without complications; E78.00 Pure hypercholesterolemia, unspecified; F41.9 Anxiety disorder, unspecified; G47.00 Insomnia, unspecified; I10 Essential (primary) hypertension; K21.9 Gastro-esophageal reflux disease without esophagitis; F17.210 Nicotine dependence, cigarettes, uncomplicated; Z59.0 Homelessness; Z79.4 Long term (current) use of insulin; Z79.51 Long term (current) use of inhaled steroids
CPT/HCPCS: 71045; 82962; 99284

== ENCOUNTER 2021-05-11 09:12 | Emergency (ER) | payer MEDICAID, SELFPAY ==
[2021-05-11 09:13] VITALS: BP 116/84; PULSE 82; RESP 16; TEMP 36.6; O2SAT 97; BMI 23.1
--- NOTE | 2021-05-11 10:03 | RAD_ITS ---
STUDY: X-RAY - RIGHT KNEE REASON FOR EXAM: Male, 50 years old. Injury. Pain. TECHNIQUE: 4 view(s) of the knee. COMPARISON: None. FINDINGS: Normal visualized distal femur. Normal visualized proximal tibia and fibula. Normal proximal tibiofibular articulation. Medial compartmental arthrosis. Normal lateral femorotibial compartment. Normal patellofemoral articulation. The soft tissue structures are unremarkable. RAD/Knee 4 or More Views IMPRESSION: Medial compartmental arthrosis. No acute abnormality. Electronically Signed: Jeff Stewart MD at 10:37 EDT , Service support ,
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
[2021-05-11] MEDS: Morphine 2 MG/ML Syringe IM (10:35)
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
[2021-05-11 11:32] VITALS: BP 115/62; PULSE 66; RESP 16; O2SAT 97
== END 2021-05-11 11:32 | disposition home or self-care (01) ==
PROVIDERS: Emergency Provider Emergency Medicine; PCP Family Medicine
DX: S83.91XA Sprain of unspecified site of right knee, initial encounter (principal); Y93.01 Activity, walking, marching and hiking; X50.1XXA Overexertion from prolonged static or awkward postures, initial encounter; Y92.89 Other specified places as the place of occurrence of the external cause; Y99.9 Unspecified external cause status; R07.89 Other chest pain; M17.11 Unilateral primary osteoarthritis, right knee; F17.210 Nicotine dependence, cigarettes, uncomplicated; Z79.84 Long term (current) use of oral hypoglycemic drugs; Z79.51 Long term (current) use of inhaled steroids; Z91.81 History of falling
CPT/HCPCS: 71101; 73564; 96372; 99282

== ENCOUNTER 2021-07-08 15:48 | Emergency (ER) | payer MEDICAID, SELFPAY ==
[2021-07-08 15:49] VITALS: PULSE 65; RESP 19; TEMP 36.4; O2SAT 97; BMI 29.1
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
--- NOTE | 2021-07-08 16:25 | RAD_ITS ---
HISTORY: injury, pain. TECHNIQUE: XR Ribs 4 Views W/ PA Chest Bilateral. # of images incl. paperwork: 9. COMPARISON: 05/11/2021. FINDINGS: CARDIOMEDIASTINAL BORDERS: Cardiac silhouette not enlarged.Mediastinal contour unremarkable. LUNGS: Radiographically clear. PLEURA: No pleural effusion or pneumothorax. OSSEOUS STRUCTURES: No acute displaced rib fracture. OTHER: Calcific densities at the right hemidiaphragm. Multiple calcific densities in the left lower quadrant. RAD/Ribs Tj Min 4V w/PA Chest IMPRESSION: No acute rib fracture identified. Multiple calcific densities in the abdomen and at the right diaphragm, which may represent foreign bodies. at 1651 Reported and signed by: Gladys Washington MD Electronically Signed: Gladys Washington MD at 16:50 EST Tel , Service support ,
[2021-07-08 17:52] VITALS: BP 155/81; PULSE 104; RESP 18; O2SAT 99
[2021-07-08] MEDS: Ketorolac 60 MG/2 ML Vial IM (18:09)
[2021-07-08 18:34] VITALS: BP 137/82; PULSE 102; RESP 18; TEMP 36.9; O2SAT 99
== END 2021-07-08 18:35 | disposition home or self-care (01) ==
PROVIDERS: Emergency Provider Emergency Medicine; PCP Family Medicine
DX: S20.219A Contusion of unspecified front wall of thorax, initial encounter (principal); S20.319A Abrasion of unspecified front wall of thorax, initial encounter; S30.811A Abrasion of abdominal wall, initial encounter; W23.0XXA Caught, crushed, jammed, or pinched between moving objects, initial encounter; Y92.830 Public park as the place of occurrence of the external cause; Y99.9 Unspecified external cause status; F17.210 Nicotine dependence, cigarettes, uncomplicated; E11.9 Type 2 diabetes mellitus without complications; E78.00 Pure hypercholesterolemia, unspecified; F41.9 Anxiety disorder, unspecified; G47.00 Insomnia, unspecified; I10 Essential (primary) hypertension; K21.9 Gastro-esophageal reflux disease without esophagitis; Z59.00 Homelessness unspecified; Z79.51 Long term (current) use of inhaled steroids; Z79.84 Long term (current) use of oral hypoglycemic drugs
CPT/HCPCS: 71111; 96372; 99285

== ENCOUNTER 2021-07-19 15:18 | Emergency (ER) | payer MEDICAID, SELFPAY ==
[2021-07-19 15:20] VITALS: BP 110/80; PULSE 88; RESP 18; TEMP 36.2; O2SAT 100; BMI 21.2
== END 2021-07-19 17:26 | disposition left against medical advice (07) ==
LOC: ED 17:28
PROVIDERS: PCP Family Medicine
DX: R20.2 Paresthesia of skin (principal); Z53.21 Procedure and treatment not carried out due to patient leaving prior to being seen by health care provider

== ENCOUNTER 2021-07-24 12:13 | Emergency (ER) | payer MEDICAID, SELFPAY ==
[2021-07-24 12:14] VITALS: BP 133/85; PULSE 76; RESP 14; TEMP 36.2; O2SAT 100; BMI 21.2
--- NOTE | 2021-07-24 14:28 | EDS_ITS ---
HPI History of Present Illness Chief Complaint: Abscess Informant: patient Narrative Narrative: Patient has had a swollen area in the armpit for a long time. 1 of these seem to have gotten irritated about 2 weeks ago. It is little bit red and sore. He does have a history of diabetes but he is not having nausea vomiting fevers chills or any systemic symptoms. He has never had 1 of these drained. He has no trauma to the area. Its not really getting bigger it is just not going away. Nothing makes it better or worse. [facility] Medical History Acid reflux Anxiety Diabetes High cholesterol Hypertension Insomnia Home Medications lisinopril 10 mg PO DAILY 06/14/14 [History Last Taken Unknown] glyburide 10 mg PO BID 06/30/20 [History Last Taken Unknown] venlafaxine 150 mg PO DAILY 06/30/20 [History Last Taken Unknown] budesonide-formoterol [Symbicort] 2 puff INHALATION BID #10.2 g 12/23/20 [Rx Last Taken Unknown] tiotropium bromide [Spiriva Respimat] 1 puff INHALATION DAILY #4 g 12/23/20 [Rx Last Taken Unknown] baclofen 20 mg PO TID 05/11/21 [History Last Taken Unknown] esomeprazole magnesium [Nexium] 20 mg PO DAILY 05/11/21 [History Last Taken Unknown] gabapentin 300 mg PO TID 05/11/21 [History Last Taken Unknown] pioglitazone [Actos] 45 mg PO DAILY 05/11/21 [History Last Taken Unknown] montelukast [Singulair] 10 mg PO DAILY 07/08/21 [History Last Taken Unknown] doxycycline monohydrate 100 mg PO BID #20 cap 07/24/21 [Rx Last Taken Unknown] Allergy/AdvReac Type Severity Reaction Status Date / Time benzonatate Allergy Hives Verified 07/19/21 15:22 [From Tessalon [place]] cefuroxime axetil Allergy Hives Verified 07/19/21 15:22 [From Ceftin] cephalexin monohydrate Allergy Hives Verified 07/19/21 15:22 [From Keflex] sulfamethoxazole Allergy Itching Verified 07/19/21 15:22 [From Bactrim] trimethoprim [From Bactrim] Allergy Itching Verified 07/19/21 15:22 acetaminophen [From [place]] AdvReac Upset Verified 07/19/21 15:22 Stomach hydrocodone AdvReac Upset Verified 07/19/21 15:22 Stomach hydrocodone bitartrate AdvReac Upset Verified 07/19/21 15:22 [From [place]] Stomach Social History Smoking Status: Current every day smoker tobacco type: e-cigarettes ROS ROS ED Constitutional Constitutional ED: Denies chills or fever(s) ENT ENT ED: Denies rhinorrhea Respiratory/Chest Respiratory/Chest: Denies cough or dyspnea Gastrointestinal Gastrointestinal: Denies diarrhea, nausea or vomiting Musculoskeletal Musculoskeletal: Denies arthralgias, back pain, myalgias or neck pain Integumentary Reports abscess Neurologic Neurologic: Denies paresthesias Endocrine Endocrinology: Denies polydipsia or polyuria EXAM Physical Exam Const Vital Signs: 07/24/21 12:14 Temperature 97.1 F L Temperature Source Temporal Pulse Rate 76 Respiratory Rate 14 Blood Pressure 133/85 H Blood Pressure Mean 101 Pulse Ox 100 Oxygen Delivery Method Room Air Positive well nourished and well developed General Appearance ED: well developed and NAD; Negative for cyanotic or diaphoretic HEENT Reports moist mucous membranes Eyes General Eye ED: Negative for pale conjunctiva or scleral icterus Neck no JVD Resp normal respiratory effort Cardio regular rate GI normal to inspection, nondistended, normoactive bowel sounds and non-tender Palpation: soft Extremity normal to inspection Extremity Narrative: See skin exam below. However, there is no pain with motion of the shoulder or arm. General Extremety ED: Yes other findings; Negative for edema or tenderness General Extremity: other findings; Negative for edema Neuro Sensorium / Orientation: alert Psych mental status grossly normal Skin Skin Narrative: There are 2 slightly swollen areas in the left axilla. One of them appears to be a sebaceous cyst. The firm area is less than a centimeter around. It is not at all red or tender. It is not fluctuant. It appears to be somewhat deep. There is another area just inferior and anterior to this. Its about 1-1/2 cm around. However, it is red warm with a soft center. This I think would benefit from drainage. MDM MDM MDM Narrative Medical decision making narrative: Procedure: Incision and drainage: I discussed options with the patient. We discussed that they usually will get rapid improvement versus antibiotics if we do incision and drainage also. He agreed. The area around the wound was cleansed and draped. He was anesthetized with 3 cc of 1% lidocaine locally with good anesthesia. A #11 blade was used to incise right over the soft area. We had immediate release of about a cc of purulent yellowish material. Small amount of bleeding. All corners of the abscess were probed with hemostats to try to break up any loculations. I was not able to pull out any significant portion of a cavity. There was no other loculations found. The area was really too small to even pack with dressing. I did explain follow-up care expected course and reasons to return to the patient. Procedures Other Procedures Procedure(s): See MDM for incision and drainage note. Discharge Plan Triage Chief Complaint: Abscess ED Provider: Eugene Chiang Dx/Rx/DC Orders Clinical Impression: Cutaneous abscess, Encounter for incision and drainage procedure Instructions: ED Abscess Incision And Drainage Prescriptions: New doxycycline monohydrate 100 MG capsule 100 mg PO BID Qty: 20 RF: 0 No Action lisinopril 10 MG tablet 10 mg PO DAILY RF: 0 glyburide 5 MG tablet 10 mg PO BID RF: 0 venlafaxine 150 MG capsule 150 mg PO DAILY RF: 0 budesonide-formoterol [Symbicort] 160-4.5 mcg/actuation HFA aerosol inhaler 2 puff inhalation BID Qty: 10.2 RF: 0 Spiriva Respimat 1.25 mcg/actuation mist 1 puff inhalation DAILY Qty: 4 RF: 0 pioglitazone [Actos] 45 mg Tablet 45 mg PO DAILY RF: 0 baclofen 20 mg Tablet 20 mg PO TID RF: 0 esomeprazole magnesium [Nexium] 20 mg Capsule,Delayed Release(Dr/Ec) 20 mg PO DAILY RF: 0 gabapentin 300 mg Tablet 300 mg PO TID RF: 0 montelukast [Singulair] 10 mg Tablet 10 mg PO DAILY RF: 0 Primary Care Provider: Rhonda Padilla Referrals: Rhonda Padilla, DO [Primary Care Provider] - 3-5 Days if not improving Disposition Disposition: Home, Self Care
[2021-07-24] MEDS: Lidocaine 1% (20 ml mdv) 20 ML Vial INFILT (14:45)
[2021-07-24] MEDS: Doxycycline 100 MG CAPSULE PO (15:11)
[2021-07-24 15:13] VITALS: PULSE 80; RESP 16; O2SAT 98
== END 2021-07-24 15:28 | disposition home or self-care (01) ==
PROVIDERS: Emergency Provider Emergency Medicine; PCP Family Medicine; Visit Provider Emergency Medicine
DX: L02.412 Cutaneous abscess of left axilla (principal); E11.9 Type 2 diabetes mellitus without complications; L72.3 Sebaceous cyst; E78.00 Pure hypercholesterolemia, unspecified; I10 Essential (primary) hypertension; Z79.899 Other long term (current) drug therapy; F41.9 Anxiety disorder, unspecified; K21.9 Gastro-esophageal reflux disease without esophagitis; F17.290 Nicotine dependence, other tobacco product, uncomplicated
CPT/HCPCS: 10060; 99283

== ENCOUNTER 2021-08-08 09:36 | Emergency (ER) | payer MEDICAID, SELFPAY ==
[2021-08-08 09:38] VITALS: BP 140/90; PULSE 83; RESP 14; TEMP 36; O2SAT 98; BMI 29.0
--- NOTE | 2021-08-08 09:51 | CT_ITS ---
STUDY: CT BRAIN WITHOUT CONTRAST REASON FOR EXAM: Male, 51 years old. Trauma RADIATION DOSAGE (If Supplied By Facility): CTDIvol = ( 47.06 ) mGy, DLP = ( 907.97 ) mGycm TECHNIQUE: Transaxial CT imaging of the brain was performed without administration of intravenous contrast material. Individualized dose optimization techniques were used for this CT. COMPARISON: No relevant priors. FINDINGS: Normal soft tissue structures. Normal calvarium. Normal size ventricles and extra-axial spaces for the patient''s age. Normal white matter tracts of the cerebral hemispheres. Normal basal ganglia and thalami. Normal brainstem. Normal cerebellum. There is no intracranial hemorrhage. There are no findings of an acute ischemic infarction. Minimal mucosal thickening of the ethmoid sinuses. CT/Brain/Head without Contrast IMPRESSION: Normal unenhanced CT scan of the brain. Electronically Signed: Anuj Goldman MD at 10:24 EST , Service support ,
--- NOTE | 2021-08-08 09:51 | CT_ITS ---
STUDY: CT MAXILLOFACIAL SINUSES REASON FOR EXAM: Male, 51 years old. Trauma RADIATION DOSAGE (If Supplied By Facility): CTDIvol = ( 25.01 ) mGy, DLP = ( 554.91 ) mGycm TECHNIQUE: The patient was scanned in a multi detector CT scanner. High resolution axial imaging was performed without the administration of intravenous contrast material. Sagittal and coronal images were reconstructed. Individualized dose optimization techniques were used for this CT. COMPARISON: None. FINDINGS: FRONTAL SINUSES: Normal aeration, without mucosal inflammatory disease. ETHMOIDAL SINUSES: Minimal mucosal thickening of the ethmoid sinuses slightly more prominent on the right side. MAXILLARY SINUSES: Minimal mucosal thickening along the inferior aspects of both maxillary sinuses. SPHENOIDAL SINUSES: Normal aeration, without mucosal inflammatory disease. There is patency of the bilateral maxillary infundibuli with normal uncinate processes, ethmoid bullae, and hiatus semilunaris. Normal bilateral middle turbinates. Normal bilateral inferior turbinates. Normal midline nasal septum. There is patency of the bilateral nasal airways. The visualized osseous structures are normal. The visualized bilateral orbital contents are normal. CT/Sinus/Facial Bone IMPRESSION: Minimal mucosal thickening of the inferior aspects of both maxillary sinuses as well as the ethmoid sinuses. Electronically Signed: Anuj Goldman MD at 10:26 EST , Service support ,
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
[2021-08-08] MEDS: Tetracaine 0.5% Ophthalmic Bottle 1 DRP RIGHT EYE (10:06)
[2021-08-08] MEDS: Fluorescein 1 MG STRIP 1 STRIP RIGHT EYE (10:06)
--- NOTE | 2021-08-08 10:06 | RAD_ITS ---
STUDY: X-RAY - LEFT WRIST REASON FOR EXAM: Male, 51 years old. Injury TECHNIQUE: 3 view(s) of the wrist were obtained. COMPARISON: None. FINDINGS: Normal visualized distal radius and ulna. Normal radiocarpal articulation. Normal distal radioulnar articulation. Avulsion fracture of the triquetrum. Normal carpal articulations. Normal carpometacarpal articulation of the thumb. Normal second through fifth carpometacarpal articulations. Normal visualized metacarpal bones. Dorsal soft tissue swelling. RAD/Wrist min 3 Views IMPRESSION: There is evidence of an avulsion fracture of the triquetrum with overlying dorsal soft tissue swelling. Electronically Signed: Anuj Goldman MD at 10:23 EST , Service support ,
[2021-08-08 12:08] VITALS: BP 134/77; PULSE 62; RESP 15; O2SAT 98
== END 2021-08-08 12:30 | disposition home or self-care (01) ==
PROVIDERS: Emergency Provider Emergency Medicine; PCP Family Medicine; Visit Provider Emergency Medicine
DX: S62.112A Displaced fracture of triquetrum [cuneiform] bone, left wrist, initial encounter for closed fracture (principal); E11.9 Type 2 diabetes mellitus without complications; S00.11XA Contusion of right eyelid and periocular area, initial encounter; H11.31 Conjunctival hemorrhage, right eye; V19.3XXA Pedal cyclist (driver) (passenger) injured in unspecified nontraffic accident, initial encounter; F17.290 Nicotine dependence, other tobacco product, uncomplicated; Y93.55 Activity, bike riding; Y92.9 Unspecified place or not applicable; I10 Essential (primary) hypertension; E78.00 Pure hypercholesterolemia, unspecified; K21.9 Gastro-esophageal reflux disease without esophagitis; Z79.84 Long term (current) use of oral hypoglycemic drugs; Z79.899 Other long term (current) drug therapy
CPT/HCPCS: 70450; 70486; 73110; 99282

== ENCOUNTER 2022-01-13 13:12 | Emergency (ER) | payer MEDICAID, SELFPAY ==
[2022-01-13 13:13] VITALS: BP 153/134; PULSE 116; RESP 14; TEMP 36.6; O2SAT 99; BMI 23.1
[2022-01-13 13:20] VITALS: BP 134/79; PULSE 105; RESP 18; O2SAT 95
--- NOTE | 2022-01-13 13:41 | RAD_ITS ---
EXAM: XR LEFT KNEE COMPLETE, 4 OR MORE VIEWS CLINICAL INDICATION: pain TECHNIQUE: Four or more views of the left knee. This report was created using [employer] report generation technology. COMPARISON: None. FINDINGS: BONES/JOINTS: Unremarkable. No acute fracture or subluxation. No joint effusion. Normal alignment. Preservation of the joint space. No sclerotic or destructive changes observed. SOFT TISSUES: Unremarkable. No soft tissue swelling or gas. No radiopaque foreign body. RAD/Knee 4 or More Views IMPRESSION: Intact left knee. Electronically Signed: Tin Gagnon MD at 14:56 EDT ,
[2022-01-13] MEDS: oxyCODONE 5 MG Tablet PO (13:46)
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
[2022-01-13 15:26] VITALS: BP 124/77; PULSE 88; RESP 15; O2SAT 97
== END 2022-01-13 15:45 | disposition home or self-care (01) ==
PROVIDERS: Emergency Provider Student in an Organized Health Care Education/Training Program; Visit Provider Student in an Organized Health Care Education/Training Program
DX: S80.02XA Contusion of left knee, initial encounter (principal); E11.9 Type 2 diabetes mellitus without complications; E78.00 Pure hypercholesterolemia, unspecified; F17.210 Nicotine dependence, cigarettes, uncomplicated; S20.212A Contusion of left front wall of thorax, initial encounter; I10 Essential (primary) hypertension; Y92.410 Unspecified street and highway as the place of occurrence of the external cause; V18.4XXA Pedal cycle driver injured in noncollision transport accident in traffic accident, initial encounter
CPT/HCPCS: 73564; 99283

== ENCOUNTER 2022-02-22 16:54 | Emergency (ER) | payer MEDICAID, SELFPAY ==
[2022-02-22 16:54] VITALS: BP 111/66; PULSE 79; RESP 17; TEMP 36.4; O2SAT 98; BMI 28.7
--- NOTE | 2022-02-22 17:08 | EDS_ITS ---
HPI <MARLEEN Lopez - Last Filed: 02/22/22 18:13> History of Present Illness Chief Complaint: Nausea/Vomiting/Diarrhea Narrative Narrative: 51-year-old male with PMH of HTN, DM2, GERD, anxiety presents with 3-day history of N/C/T and mild dry cough. He states he cannot keep down any fluids or his medications he is having nonbloody diarrhea every hour. No abdominal pain just slight soreness. No chest pain or shortness of breath. He feels weak and [facility] today to bring him in. He was recently at the [facility] where there are several positive COVID cases. He is vaccinated. <Dr. Margi Quintana MD - Last Filed: 02/22/22 18:32> Narrative Narrative: 51-year-old male with PMH of HTN, DM2, GERD, anxiety presents with 3-day history of N/V/D and mild dry cough. He states he cannot keep down any fluids or his medications he is having nonbloody diarrhea every hour. No abdominal pain just slight soreness. No chest pain or shortness of breath. He feels weak and called EMS today to bring him in. He was recently at the [facility] where there are several positive COVID cases. He is vaccinated. PFSH <MARLEEN Lopez - Last Filed: 02/22/22 18:13> PFS Medical History Acid reflux Anxiety Diabetes High cholesterol Hypertension Insomnia PTSD (post-traumatic stress disorder) Home Medications lisinopril 10 mg tablet 10 mg PO DAILY 06/14/14 [History Last Taken Unknown] glyburide 5 mg tablet 10 mg PO BID 06/30/20 [History Last Taken Unknown] venlafaxine 150 mg capsule,extended release 24 hr 150 mg PO DAILY 06/30/20 [History Last Taken Unknown] budesonide-formoterol HFA 160 mcg-4.5 mcg/actuation aerosol inhaler (Symbicort) 2 puff inhalation BID #10.2 grams 12/23/20 [Rx Last Taken Unknown] tiotropium bromide 1.25 mcg/actuation mist for inhalation (Spiriva Respimat) 1 puff inhalation DAILY #4 grams 06/11/21 [Rx Last Taken Unknown] baclofen 20 mg tablet 20 mg PO TID 05/11/21 [History Last Taken Unknown] esomeprazole magnesium 20 mg capsule,delayed release (Nexium) 20 mg PO DAILY 05/11/21 [History Last Taken Unknown] gabapentin 300 mg tablet 300 mg PO TID 05/11/21 [History Last Taken Unknown] pioglitazone 45 mg tablet (Actos) 45 mg PO DAILY 05/11/21 [History Last Taken Unknown] montelukast 10 mg tablet (Singulair) 10 mg PO DAILY 07/08/21 [History Last Taken Unknown] doxycycline monohydrate 100 mg capsule 100 mg PO BID #20 caps 07/24/21 [Rx Last Taken Unknown] oxycodone-acetaminophen 5 mg-325 mg tablet (Endocet) 1 tab PO Q8H PRN pain 2 days #8 tabs 01/13/22 [Rx Last Taken Unknown] loperamide 2 mg capsule (Imodium A-D) 2 mg PO Q6H PRN loose stool 7 days #28 caps 02/22/22 [Rx Last Taken Unknown] ondansetron 4 mg disintegrating tablet 4 mg PO Q6H PRN nausea and vomiting #12 tabs 02/22/22 [Rx Last Taken Unknown] Allergy/AdvReac Type Severity Reaction Status Date / Time benzonatate Allergy Hives Verified 02/22/22 16:57 [From Tessalon Perles] cefuroxime axetil Allergy Hives Verified 02/22/22 16:57 [From Ceftin] cephalexin monohydrate Allergy Hives Verified 02/22/22 16:57 [From Keflex] sulfamethoxazole Allergy Itching Verified 02/22/22 16:57 [From Bactrim] trimethoprim [From Bactrim] Allergy Itching Verified 02/22/22 16:57 acetaminophen [From [place]] AdvReac Upset Verified 02/22/22 16:57 Stomach hydrocodone AdvReac Upset Verified 02/22/22 16:57 Stomach hydrocodone bitartrate AdvReac Upset Verified 02/22/22 16:57 [From [place]] Stomach Social History Smoking Status: Current every day smoker tobacco type: e-cigarettes ROS <MARLEEN Lopez - Last Filed: 02/22/22 18:13> ROS ED ROS Narrative Constitutional: Positive for malaise. Negative for fever, chills. Eyes: Negative for visual change. ENT: Negative for sore throat, ear pain, rhinorrhea. CVS: Negative for palpitations, chest pain, syncope. Respiratory: Positive for cough. Negative for shortness of breath, orthopnea. GI: Positive for nausea, vomiting, diarrhea. Negative for abdominal pain, constipation, melena, hematochezia. : Negative for dysuria, hematuria or frequency. Neuro: Negative for headache, motor/sensory dysfunction. Skin: Negative for rash, abscess, or wound. Musc: Negative for joint pain, swelling, trauma. Heme: Negative for easy bruising, bleeding, lymphadenopathy. EXAM <MARLEEN Lopez - Last Filed: 02/22/22 18:13> Physical Exam Narrative Exam Narrative: CONST: Patient sitting in no acute distress. EYES: Normal inspection. ENT: Normal inspection, dry mucous membranes. NECK: Normal inspection. RESP: No respiratory distress, CTAB. CVS: Regular rate and rhythm, no murmur, no gallop. ABD: Soft and nontender, no guarding or rebound, nondistended. SKIN: Color normal, no rash, warm, dry, intact. EXTREMITIES: Normal appearance, no pedal edema. NEURO: Oriented x4. PSYCH: Normal affect. Const Vital Signs: 02/22/22 16:54 02/22/22 18:26 Temperature 97.6 F L Temperature Source Oral Pulse Rate 79 74 Respiratory Rate 17 16 Blood Pressure 111/66 122/68 H Blood Pressure Mean 81 Pulse Ox 98 95 Oxygen Delivery Method Room Air <Dr. Margi Quintana MD - Last Filed: 02/22/22 18:32> Physical Exam Const Vital Signs: 02/22/22 16:54 02/22/22 18:26 Temperature 97.6 F L Temperature Source Oral Pulse Rate 79 74 Respiratory Rate 17 16 Blood Pressure 111/66 122/68 H Blood Pressure Mean 81 Pulse Ox 98 95 Oxygen Delivery Method Room Air MDM <MARLEEN Lopez - Last Filed: 02/22/22 18:13> MDM MDM Narrative Medical decision making narrative: Patient presents with mild dry cough and N/V/D. He appears well nontoxic. He is slightly dry mucous membranes, otherwise unremarkable exam. He was given IV fluids, Zofran, and Toradol and labs were obtained. CBC, BMP all within normal limits. COVID test is negative. Patient counseled this is likely a viral illness and I prescribed Zofran and Imodium to take as needed. He was discharged in stable condition. Lab Data Attestation: I reviewed the patient's lab results. Labs: Laboratory Results - last 24 hr 02/22/22 02/22/22 17:37 17:37 WBC 7.2 RBC 4.72 Hgb 13.8 Hct 42.2 MCV 89.4 MCH 29.2 MCHC 32.7 RDW Std Deviation 41.6 RDW Coeff of Hai 12.6 Plt Count 251 MPV 9.0 Immature Gran % (Auto) 0.400 Neut % (Auto) 71.2 H Lymph % (Auto) 14.9 L Ellis % (Auto) 8.6 Eos % (Auto) 4.2 Baso % (Auto) 0.7 Absolute Neuts (auto) 5.1 Absolute Lymphs (auto) 1.07 Nucleated RBC % 0 Sodium 136 Potassium 3.5 Chloride 103 Carbon Dioxide 26.0 Anion Gap 7 BUN 9 Creatinine 1.04 Estim Creat Clear Calc 105.49 Est GFR (MDRD) Af Amer 97 Est GFR (MDRD) Non-Af 80 BUN/Creatinine Ratio 8.7 L Glucose 100 Calcium 8.9 <Dr. Margi Quintana MD - Last Filed: 02/22/22 18:32> [facility] Lab Data Labs: Laboratory Results - last 24 hr 02/22/22 02/22/22 17:37 17:37 WBC 7.2 RBC 4.72 Hgb 13.8 Hct 42.2 MCV 89.4 MCH 29.2 MCHC 32.7 RDW Std Deviation 41.6 RDW Coeff of Hai 12.6 Plt Count 251 MPV 9.0 Immature Gran % (Auto) 0.400 Neut % (Auto) 71.2 H Lymph % (Auto) 14.9 L Ellis % (Auto) 8.6 Eos % (Auto) 4.2 Baso % (Auto) 0.7 Absolute Neuts (auto) 5.1 Absolute Lymphs (auto) 1.07 Nucleated RBC % 0 Sodium 136 Potassium 3.5 Chloride 103 Carbon Dioxide 26.0 Anion Gap 7 BUN 9 Creatinine 1.04 Estim Creat Clear Calc 105.49 Est GFR (MDRD) Af Amer 97 Est GFR (MDRD) Non-Af 80 BUN/Creatinine Ratio 8.7 L Glucose 100 Calcium 8.9 Treatment and Re-Evaluation Narrative: Patient seen and evaluated with MERT. I personally interviewed and examined the patient. I was involved in all aspects of patient's orders, interpretation of results, and treatment. Patient presents with 3-day history of nausea, vomiting, and diarrhea. He has had a mild dry cough. He does report exposure to COVID at the [facility]. He denies fever or chills. No prior abdominal surgeries. Patient sitting upright in bed no acute distress. Nontoxic-appearing. Head and neck examination unremarkable. Moist mucous membranes. Heart is regular rate and rhythm. Lung sounds are clear. Abdomen is soft with no focal tenderness. Active bowel sounds are noted. Patient is given IV fluids, Zofran, and Toradol. Lab work obtained and is unremarkable. On repeat evaluation patient does have improvement in his s ymptoms. He will be given a prescription for Imodium as well as Zofran. His COVID test was negative and he is reassured with this. Discharge Plan Triage Chief Complaint: Nausea/Vomiting/Diarrhea ED Midlevel Provider: Lilia Mccrary ED Provider: Margi Quintana Dx/Rx/DC Orders Clinical Impression: Acute viral syndrome, Dehydration, mild Instructions: ED Diet Vomiting Diarrhea, ED Viral Syndrome (Adult) Prescriptions: New ondansetron 4 mg tablet,disintegrating 4 mg PO Q6H PRN (Reason: nausea and vomiting) Qty: 12 0RF loperamide [Imodium A-D] 2 mg capsule 2 mg PO Q6H PRN (Reason: loose stool) 7 Days Qty: 28 0RF No Action lisinopril 10 MG tablet 10 mg PO DAILY glyburide 5 MG tablet 10 mg PO BID Label Comments: TAKE 2 TABLETS BY MOUTH TWICE DAILY venlafaxine 150 MG capsule 150 mg PO DAILY Label Comments: TAKE 1 CAPSULE BY MOUTH ONCE DAILY budesonide-formoterol [Symbicort] 160-4.5 mcg/actuation HFA aerosol inhaler 2 puff inhalation BID Qty: 10.2 0RF Spiriva Respimat 1.25 mcg/actuation mist 1 puff inhalation DAILY Qty: 4 0RF pioglitazone [Actos] 45 mg Tablet 45 mg PO DAILY baclofen 20 mg Tablet 20 mg PO TID esomeprazole magnesium [Nexium] 20 mg Capsule,Delayed Release(Dr/Ec) 20 mg PO DAILY gabapentin 300 mg Tablet 300 mg PO TID montelukast [Singulair] 10 mg Tablet 10 mg PO DAILY doxycycline monohydrate 100 MG capsule 100 mg PO BID Qty: 20 0RF oxycodone-acetaminophen [Endocet] 5-325 mg tablet 1 tab PO Q8H PRN (Reason: pain) 2 Days Qty: 8 0RF [facility] [[facility] - Activity Restrictions/Additional Instructions: Your blood work looks normal and your COVID-19 test today was negative. I suspect you have a viral illness. I prescribed Zofran for nausea and vomiting and Imodium for diarrhea to take as needed. Return to the ER if your symptoms worsen. Disposition Disposition: Home, Self Care Discharge Date/Time: 02/22/22 18:29
[2022-02-22] MEDS: Ondansetron 4 MG/2 ML Vial IV (17:35)
[2022-02-22] MEDS: 0.9% Normal Saline 1,000 ML 999 ML IV (17:35)
[2022-02-22] MEDS: Ketorolac 15 MG/ML Vial IV (17:35)
[2022-02-22 17:43] LABS: Absolute Lymphocyte Count 1.07 X10^3/uL (0.83-4.51); Absolute Neutrophil Count 5.1 X10^3/uL (2.0-7.7); Basophil# 0.05 X10^3/uL; Basophil% 0.7 % (0-1); Eosinophils% 4.2 % (0-5); Hematocrit 42.2 % (40-54); Hemoglobin 13.8 g/dL (13.0-16.5); Lymphocyte # 1.07 X10^3/ul (0.83-4.51); Lymphocyte % 14.9 % (19-41); Mean Corp Hgb Conc 32.7 g/dL (32-36); Mean Corpuscular Hgb 29.2 pg (27.0-32.0); Mean Corpuscular Volume 89.4 fL (80-94); Monocyte# 0.62 X10^3/uL; Monocyte% 8.6 % (0-10); NRBC Flagged by Analyzer 0 % (0-5); Neutrophil # 5.11 X10^3/uL (2.7-7.7); Neutrophil % 71.2 % (47-70); Platelet Count 251 K/mm3 (150-450); RBC Distribution Width CV 12.6 % (11.6-14.6); RBC Distribution Width SD 41.6 fl (35.1-43.9); Red Blood Count 4.72 M/mm3 (4.6-6.2); White Blood Count 7.2 K/mm3 (4.4-11.0)
[2022-02-22 18:00] LABS: Anion Gap 7 (5-15); BUN 9 mg/dL (7-18); BUN/Creat Ratio 8.7 RATIO (10-20); Calcium,Total 8.9 mg/dL (8.5-10.1); Chloride 103 mmol/L (98-107); Creatinine, Serum 1.04 mg/dL (0.70-1.30); EST Glomerular Filtration Rate 80 mL/min (>60); Est Glom Filt Rate - Afr Amer 97 mL/min (>60); Estimated Creatinine Clearance 105.49 ml/min; Glucose 100 mg/dL (74-106); Potassium 3.5 mmol/L (3.5-5.1); Sodium Level 136 mmol/L (136-145)
[2022-02-22 18:26] VITALS: BP 122/68; PULSE 74; RESP 16; O2SAT 95
== END 2022-02-22 18:29 | disposition home or self-care (01) ==
PROVIDERS: Physician Assistant; Emergency Provider Emergency Medicine; Visit Provider Emergency Medicine
DX: E86.0 Dehydration (principal); E11.9 Type 2 diabetes mellitus without complications; B34.9 Viral infection, unspecified; R19.7 Diarrhea, unspecified; F41.9 Anxiety disorder, unspecified; F17.210 Nicotine dependence, cigarettes, uncomplicated; I10 Essential (primary) hypertension; E78.00 Pure hypercholesterolemia, unspecified; R11.2 Nausea with vomiting, unspecified; Z20.822 Contact with and (suspected) exposure to COVID-19
CPT/HCPCS: 80048; 85025; 87811; 99285; J7030; A4216; J2405

== ENCOUNTER 2022-09-21 10:19 | Emergency (ER) | payer MEDICAID, SELFPAY ==
[2022-09-21 10:20] VITALS: PULSE 111; RESP 18; TEMP 36.2; O2SAT 95
[2022-09-21 10:35] VITALS: BMI 33.5
[2022-09-21 10:40] VITALS: BP 103/70; PULSE 97; RESP 19; O2SAT 92
--- NOTE | 2022-09-21 11:05 | CT_ITS ---
STUDY: CT CERVICAL SPINE WITHOUT CONTRAST REASON FOR EXAM: Male, 52 years old. Polytrauma RADIATION DOSAGE (If Supplied By Facility): CTDIvol = ( 22.90 ) mGy, DLP = ( 935.02 ) mGycm TECHNIQUE: High resolution transaxial imaging was performed without contrast material. Sagittal and coronal images were reconstructed. Individualized dose optimization techniques were used for this CT. COMPARISON: None FINDINGS: Normal craniovertebral junction. Normal anterior atlantoaxial articulation. Normal odontoid process. There is reversal of the normal cervical lordosis. Normal vertebral bodies and posterior osseous elements. C2-3: Normal endplates. Normal disc height and morphology. Normal central canal and intervertebral neuroforamina. C3-4: Marked degree of disc space narrowing. Spondylosis. Subchondral sclerosis. Uncovertebral arthrosis. Bilateral neural foraminal stenosis worse on the left side. C4-5: Mild degree of disc space narrowing. No significant stenosis seen. C5-6: Marked degree of disc space narrowing. Anterior spondylosis. Uncovertebral arthrosis. Mild degree of right neural foraminal stenosis. C6-7: Moderate degree of disc space narrowing and spondylosis. Uncovertebral arthrosis. Bilateral neural foraminal stenosis. C7-T1: Normal endplates. Normal disc height and morphology. Normal central canal and intervertebral neuroforamina. Normal visualized soft tissue structures. CT/Spine Cervical without Contras IMPRESSION: Multilevel degenerative changes, as described above. Electronically Signed: Anuj Goldman MD at 12:16 EST ,
--- NOTE | 2022-09-21 11:05 | CT_ITS ---
STUDY: CT BRAIN WITHOUT CONTRAST REASON FOR EXAM: Male, 52 years old. Head injury due to a fall. Confusion. RADIATION DOSAGE (If Supplied By Facility): CTDIvol = ( 44.99 ) mGy, DLP = ( 880.47 ) mGycm TECHNIQUE: Transaxial CT imaging of the brain was performed without administration of intravenous contrast material. Individualized dose optimization techniques were used for this CT. COMPARISON: Comparison is made with prior study dated February 05, 2022. FINDINGS: Normal soft tissue structures. Normal calvarium. Normal size ventricles and extra-axial spaces for the patient''s age. Normal white matter tracts of the cerebral hemispheres. Normal basal ganglia and thalami. Normal brainstem. Normal cerebellum. There is no intracranial hemorrhage. There are no findings of an acute ischemic infarction. Normal visualized paranasal sinuses. CT/Brain/Head without Contrast IMPRESSION: Normal unenhanced CT scan of the brain. Electronically Signed: Anuj Goldman MD at 12:11 EST ,
[2022-09-21] MEDS: 0.9% Normal Saline 1,000 ML 1000 ML IV (11:15)
--- NOTE | 2022-09-21 11:19 | EDS_ITS ---
HPI History of Present Illness Chief Complaint: Syncope Informant: patient Narrative Narrative: Presents getting off the bus for evaluation. Reports 2 days ago at a hotel he states his sugars seem to drop he fell out of shower breaking of the toilet with his head. He does not take blood thinners he states he is a diabetic. He states he has not eaten much over 4 days due to finances. He states prior to the hotel he was staying at a friend's house. A friend was able to give him a 3-day stay in the hotel the last time was yesterday when he had to leave. He was [facility] overnight. He states they did feed him and he ate breakfast this morning. Diabetes he is on Actos and glyburide. Denies nausea or vomiting. States he has not urinated today. Primarily reports pain in his head. No fevers. Patient also reports lower back pain worse with movement no radicular pains down the legs no loss of bowel or bladder control. History of lumbar 1 level surgery in the past. [facility] Medical History Acid reflux Anxiety Diabetes High cholesterol Hypertension Insomnia PTSD (post-traumatic stress disorder) Home Medications lisinopril 10 mg tablet 10 mg PO DAILY 06/14/14 [History Last Taken Unknown] glyburide 5 mg tablet 10 mg PO BID 06/30/20 [History Last Taken Unknown] venlafaxine 150 mg capsule,extended release 24 hr 150 mg PO DAILY 06/30/20 [History Last Taken Unknown] budesonide-formoterol HFA 160 mcg-4.5 mcg/actuation aerosol inhaler (Symbicort) 2 puff inhalation BID #10.2 grams 12/23/20 [Rx Last Taken Unknown] tiotropium bromide 1.25 mcg/actuation mist for inhalation (Spiriva Respimat) 1 puff inhalation DAILY #4 grams 12/23/20 [Rx Last Taken Unknown] baclofen 20 mg tablet 20 mg PO TID 05/11/21 [History Last Taken Unknown] esomeprazole magnesium 20 mg capsule,delayed release (Nexium) 20 mg PO DAILY 05/11/21 [History Last Taken Unknown] gabapentin 300 mg tablet 300 mg PO TID 05/11/21 [History Last Taken Unknown] pioglitazone 45 mg tablet (Actos) 45 mg PO DAILY 05/11/21 [History Last Taken Unknown] montelukast 10 mg tablet (Singulair) 10 mg PO DAILY 07/08/21 [History Last Taken Unknown] doxycycline monohydrate 100 mg capsule 100 mg PO BID #20 caps 07/24/21 [Rx Last Taken Unknown] oxycodone-acetaminophen 5 mg-325 mg tablet (Endocet) 1 tab PO Q8H PRN pain 2 days #8 tabs 01/13/22 [Rx Last Taken Unknown] loperamide 2 mg capsule (Imodium A-D) 2 mg PO Q6H PRN loose stool 7 days #28 caps 02/22/22 [Rx Last Taken Unknown] ondansetron 4 mg disintegrating tablet 4 mg PO Q6H PRN nausea and vomiting #12 tabs 02/22/22 [Rx Last Taken Unknown] acetaminophen 500 mg tablet (Tylenol Extra Strength) 1,000 mg PO Q6H PRN pain #60 tabs 09/21/22 [Rx Last Taken Unknown] cyclobenzaprine 10 mg tablet 10 mg PO TID PRN Muscle Spasm #20 TABLETS 09/21/22 [Rx Last Taken Unknown] Allergy/AdvReac Type Severity Reaction Status Date / Time benzonatate Allergy Hives Verified 02/22/22 16:57 [From Tessalon Perles] cefuroxime axetil Allergy Hives Verified 02/22/22 16:57 [From Ceftin] cephalexin monohydrate Allergy Hives Verified 02/22/22 16:57 [From Keflex] sulfamethoxazole Allergy Itching Verified 02/22/22 16:57 [From Bactrim] trimethoprim [From Bactrim] Allergy Itching Verified 02/22/22 16:57 acetaminophen [From [place]] AdvReac Upset Verified 02/22/22 16:57 Stomach hydrocodone AdvReac Upset Verified 02/22/22 16:57 Stomach hydrocodone bitartrate AdvReac Upset Verified 02/22/22 16:57 [From [place]] Stomach Social History Smoking Status: Current every day smoker tobacco type: e-cigarettes ROS ROS ED Constitutional Constitutional ED: Denies chills, fever(s) or sweats Eyes Eyes: Denies change in vision ENT ENT ED: Denies dysphagia or sore throat Cardiovascular Cardiovascular: Denies chest pain, leg edema, palpitations or racing heartbeat Respiratory/Chest Respiratory/Chest: Denies cough, dyspnea or dyspnea on exertion Gastrointestinal Gastrointestinal: Denies abdominal pain, diarrhea, nausea or vomiting Genitourinary Genitourinary ED: Reports other Details: Decreased urine output ; Denies dysuria, hematuria or urinary frequency Musculoskeletal Musculoskeletal: Denies back pain, extremity pain or neck pain Integumentary Denies rash or wounds Neurologic Neurologic: Reports headache(s); Denies paresthesias or weakness EXAM Physical Exam Const Vital Signs: 09/21/22 10:20 09/21/22 10:35 09/21/22 10:40 Temperature 97.1 F L Temperature Source Temporal Pulse Rate 111 H 97 Respiratory Rate 18 19 H Respiratory Effort Normal Non-Labored Respiratory Pattern Normal Blood Pressure 103/70 Blood Pressure Mean 81 Pulse Ox 95 92 Oxygen Delivery Method Room Air Room Air 09/21/22 11:44 09/21/22 12:10 09/21/22 13:42 Temperature Temperature Source Pulse Rate 90 85 Respiratory Rate 18 18 Respiratory Effort Respiratory Pattern Blood Pressure 106/54 L 114/48 L 130/96 H Blood Pressure Mean 71 70 107 Pulse Ox 95 93 Oxygen Delivery Method Room Air Room Air 09/21/22 14:07 Temperature Temperature Source Pulse Rate 73 Respiratory Rate Respiratory Effort Respiratory Pattern Blood Pressure 120/66 Blood Pressure Mean 84 Pulse Ox Oxygen Delivery Method Positive well nourished and well developed Constitutional Narrative: Nontoxic, GCS 15 General Appearance ED: well developed HEENT Reports moist mucous membranes HEENT Narrative: No scalp hematoma or laceration normocephalic and atraumatic Eyes PERRL, EOMs intact bilaterally and conjunctivae normal General Eye ED: Yes normal appearance of both eyes Neck no lymphadenopathy and supple General: Negative for tenderness Chest Wall Chest Narrative: Mild tenderness right chest wall no crepitus. Chest: Negative for tenderness Resp normal respiratory effort and normal air movement Resp Narrative: Symmetric breath sounds Effort and Inspection: symmetric chest movement; Negative for respiratory distress Cardio regular rate, regular rhythm and no murmurs Peripheral Pulses: pulses 2+ throughout GI normal to inspection, nondistended, normoactive bowel sounds and non-tender Palpation: Negative for guarding or rebound tenderness present Back/Spine no CVA tenderness Back/Spine Narrative: No midline back tenderness paralumbar tenderness on reevaluation. Lower small midline lumbar scar. Extremity normal to inspection General Extremety ED: Negative for edema or tenderness General Extremity: Negative for edema Neuro oriented x3, CN's II-XII intact bilaterally and no sensory deficits noted Sensorium / Orientation: awake and alert Skin no rashes or lesions noted and no wounds MDM MDM MDM Narrative Medical decision making narrative: Interventions / MDM: Differential diagnosis: Syncope, hypoglycemia, intracranial hemorrhage, cardiac dysrhythmia, electrolyte abnormalities, lumbar strain. Diagnosis considered but do not suspect: N/A My EKG interpretation: Sinus rhythm at 87, no ST or T wave changes QTc 466 Imaging independently reviewed and interpreted by myself: CT head and cervical spine: No intracranial bleed, no fracture. Also read by radiology. two-view chest x-ray: No acute process. External documents reviewed: N/A Test considered but not ordered:N/A ED course: Patient reported fall out of shower with loss of consciousness few days ago. Progressive head pain. EKG sinus rhythm trauma scan head and neck are negative. Two-view chest x-ray negative. Labs are stable, except for noted slight renal sufficiency. Glucose stable was treated with fentanyl initially along with IV fluids. UA. Reevaluation reporting more of his back pain worse with movement no radicular symptoms no loss of bowel or bladder control. Has been on Flexeril in the past this was given to him. Patient reported social concerns for finances he is currently at the jail he is getting food there. I had case management see him, give more additional resources. He does have Medicaid for medications. He is given prescription for Flexeril, he is given Tylenol prescription to help with his back. will avoid NSAIDs due to renal deficiency. He is able to ambulate. All questions were answered. Re-evaluation: stable Disposition discussed with patient/family/significant other: Patient Case discussed with consulting clinician: Licensed case management in the ED Lab Data Attestation: I reviewed the patient's lab results. Labs: Laboratory Results - last 24 hr 09/21/22 09/21/22 09/21/22 11:15 11:15 11:15 WBC 11.1 H RBC 4.30 L Hgb 12.8 L Hct 40.9 MCV 95.1 H MCH 29.8 MCHC 31.3 L RDW Std Deviation 46.5 H RDW Coeff of Hai 13.2 Plt Count 217 MPV 9.9 Immature Gran % (Auto) 0.400 Neut % (Auto) 74.2 H Lymph % (Auto) 14.2 L [place] % (Auto) 8.6 Eos % (Auto) 2.3 Baso % (Auto) 0.3 Absolute Neuts (auto) 8.3 H Absolute Lymphs (auto) 1.58 Nucleated RBC % 0 PT 13.0 INR 1.0 APTT 45.3 H Sodium 138 Potassium 3.8 Chloride 104 Carbon Dioxide 24.0 Anion Gap 10 BUN 17 Creatinine 1.40 H Estim Creat Clear Calc 77.50 Est GFR (MDRD) Af Amer 69 Est GFR (MDRD) Non-Af 57 L BUN/Creatinine Ratio 12.1 Glucose 208 H Calcium 9.0 POC Glucose 09/21/22 11:30 WBC RBC Hgb Hct MCV MCH MCHC RDW Std Deviation RDW Coeff of Hai Plt Count MPV Immature Gran % (Auto) Neut % (Auto) Lymph % (Auto) [place] % (Auto) Eos % (Auto) Baso % (Auto) Absolute Neuts (auto) Absolute Lymphs (auto) Nucleated RBC % PT INR APTT Sodium Potassium Chloride Carbon Dioxide Anion Gap BUN Creatinine Estim Creat Clear Calc Est GFR (MDRD) Af Amer Est GFR (MDRD) Non-Af BUN/Creatinine Ratio Glucose Calcium POC Glucose 195 H Radiography Diagnostic Testing: Clinical Impression(s) from Imaging Studies Brain CT 09/21/22 11:05 IMPRESSION: Normal unenhanced CT scan of the brain. Electronically Signed: Anuj Goldman MD at 12:11 EST , Cervical Spine CT 09/21/22 11:05 IMPRESSION: Multilevel degenerative changes, as described above. Electronically Signed: Anuj Goldman MD at 12:16 EST , Chest X-Ray 09/21/22 11:55 IMPRESSION: Findings suggestive of a mild degree of bilateral basilar linear atelectasis. Electronically Signed: Anuj Goldman MD at 12:18 EST , Discharge Plan Triage Chief Complaint: Syncope ED Provider: German Cummings Dx/Rx/DC Orders Clinical Impression: Head injury, Syncope, Acute lumbar myofascial strain, Acute renal insufficiency Instructions: Causes of Syncope, Concussion Dc, ED Back Sprain/Strain, ED Renal Insufficiency Prescriptions: New cyclobenzaprine [cyclobenzaprine] 10 mg tablet 10 mg PO TID PRN (Reason: Muscle Spasm) Qty: 20 0RF acetaminophen [Tylenol Extra Strength] 500 mg tablet 1,000 mg PO Q6H PRN (Reason: pain) Qty: 60 0RF No Action lisinopril 10 MG tablet 10 mg PO DAILY glyburide 5 MG tablet 10 mg PO BID Label Comments: TAKE 2 TABLETS BY MOUTH TWICE DAILY venlafaxine 150 MG capsule 150 mg PO DAILY Label Comments: TAKE 1 CAPSULE BY MOUTH ONCE DAILY budesonide-formoterol [Symbicort] 160-4.5 mcg/actuation HFA aerosol inhaler 2 puff inhalation BID Qty: 10.2 0RF Spiriva Respimat 1.25 mcg/actuation mist 1 puff inhalation DAILY Qty: 4 0RF pioglitazone [Actos] 45 mg Tablet 45 mg PO DAILY baclofen 20 mg Tablet 20 mg PO TID esomeprazole magnesium [Nexium] 20 mg Capsule,Delayed Release(Dr/Ec) 20 mg PO DAILY gabapentin 300 mg Tablet 300 mg PO TID montelukast [Singulair] 10 mg Tablet 10 mg PO DAILY doxycycline monohydrate 100 MG capsule 100 mg PO BID Qty: 20 0RF oxycodone-acetaminophen [Endocet] 5-325 mg tablet 1 tab PO Q8H PRN (Reason: pain) 2 Days Qty: 8 0RF ondansetron 4 mg tablet,disintegrating 4 mg PO Q6H PRN (Reason: nausea and vomiting) Qty: 12 0RF loperamide [Imodium A-D] 2 mg capsule 2 mg PO Q6H PRN (Reason: loose stool) 7 Days Qty: 28 0RF Primary Care Provider: Nela Bourgeois Referrals: [facility] Nela Fonseca [Primary Care Provider] - 3-5 Days Activity Restrictions/Additional Instructions: Head and neck CAT scan negative. EKG labs today. Creatinine 1.4 today. Given IV fluids. Continue oral fluids at home follow-up for recheck with your doctor. Return if any worsening symptoms. Disposition Disposition: Home, Self Care Discharge Date/Time: 09/21/22 15:27
[2022-09-21 11:22] LABS: Absolute Lymphocyte Count 1.58 X10^3/uL (0.83-4.51); Absolute Neutrophil Count 8.3 X10^3/uL (2.0-7.7); Basophil# 0.03 X10^3/uL; Basophil% 0.3 % (0-1); Eosinophil# 0.26 X10^3/uL; Eosinophils% 2.3 % (0-5); Hematocrit 40.9 % (40-54); Hemoglobin 12.8 g/dL (13.0-16.5); Lymphocyte # 1.58 X10^3/ul (0.83-4.51); Lymphocyte % 14.2 % (19-41); Mean Corp Hgb Conc 31.3 g/dL (32-36); Mean Corpuscular Hgb 29.8 pg (27.0-32.0); Mean Corpuscular Volume 95.1 fL (80-94); Mean Platelet Vol. 9.9 fl (6.2-12.0); Monocyte# 0.95 X10^3/uL; Monocyte% 8.6 % (0-10); NRBC Flagged by Analyzer 0 % (0-5); Neutrophil # 8.25 X10^3/uL (2.7-7.7); Neutrophil % 74.2 % (47-70); Platelet Count 217 K/mm3 (150-450); RBC Distribution Width CV 13.2 % (11.6-14.6); RBC Distribution Width SD 46.5 fl (35.1-43.9); White Blood Count 11.1 K/mm3 (4.4-11.0)
[2022-09-21] MEDS: fentaNYL 100 MCG/2 ML Ampul 25 MCG IV (11:25)
[2022-09-21] MEDS: Ondansetron 4 MG/2 ML Vial IV (11:26)
[2022-09-21 11:33] LABS: Partial Thromboplast Time 45.3 Seconds (24.1-36.2)
[2022-09-21 11:38] LABS: Anion Gap 10 (5-15); BUN 17 mg/dL (7-18); BUN/Creat Ratio 12.1 RATIO (10-20); Chloride 104 mmol/L (98-107); EST Glomerular Filtration Rate 57 mL/min (>60); Est Glom Filt Rate - Afr Amer 69 mL/min (>60); Glucose 208 mg/dL (74-106); Potassium 3.8 mmol/L (3.5-5.1); Sodium Level 138 mmol/L (136-145)
[2022-09-21 11:44] VITALS: BP 106/54
[2022-09-21 11:50] LABS: Bedside Glucose 195 mg/dL (74-106)
--- NOTE | 2022-09-21 11:55 | RAD_ITS ---
STUDY: X-RAY CHEST REASON FOR EXAM: Male, 52 years old. Syncopal episode. TECHNIQUE: PA and lateral views of the chest. COMPARISON: Comparison is made with prior study of July 08, 2021. FINDINGS: Minimal increased linear markings at the lung bases suggestive of bibasilar linear atelectasis. There is no demonstrated pleural abnormality. Normal size heart. Normal mediastinum and kim. Normal visualized pulmonary arteries. Normal visualized aortic arch and descending thoracic aorta. Normal visualized thoracic spine. Normal visualized ribs, clavicles, and shoulders. There is no demonstrated abnormality of the visualized soft tissue structures of the upper abdomen. RAD/Chest PA and Lateral IMPRESSION: Findings suggestive of a mild degree of bilateral basilar linear atelectasis. Electronically Signed: Anuj Goldman MD at 12:18 EST ,
[2022-09-21 12:10] VITALS: BP 114/48; PULSE 90; RESP 18; O2SAT 95
[2022-09-21 13:42] VITALS: BP 130/96; PULSE 85; RESP 18; O2SAT 93
--- NOTE | 2022-09-21 14:00 | CM.ED ---
Social Work Note Referral Source: MD Cummings Referral Reason: resources MD Cummings met with SW and reviewed patient's symptoms as well as current social concerns regarding housing and access to food. SW to follow up. SW met with patient and introduced herself and role as [facility] [employer]. Patient laying in hospital bed, shirtless holding a paper towel to his lip currently bleeding. SW inquired about patient's currently living situation and resources. Patient explained he has been staying at the [facility] due to [facility] having no available beds. Patient explained he has struggled with housing since 2020. Patient reports he is currently connected with [employer] for insurance and EBT and has utilzied [employer] for additional needs. Patient reports previously being connected to [employer] and working with [employer], however, patient reports he has been unable to reach [email or web address] and does not like the [facility]. Patient explained he was supposed to have 1-3 years of rent assistance but the assistance stopped after three months. Patient declined to allow SW to contact [facility] in [place] to discuss services/benefits for patient. SW then inquired about patient working with [employer] or [employer] for housing support, patient states he was previously on [employer] list but was removed when [facility]. [facility] to discuss services. SW inquired about patient's current mental health, patient reports no concerns and denied suicidal and homicidal thoughts. Patient inquired about what agency this SW was with and if this SW could help get him back into the system. SW explained again she is employed by [facility] and not affiliated with a community agency. SW encouraged patient to contact [employer] or [employer] for further assistance with housing. SW also provided patient with [employer] resource list and highlighted [employer] and [employer] contact information. SW also reviewed with patient food pantries and daily meals that are available in the community. Patient reports some knowledge of food [employer] and was receptive towards list. Patient explained he plans to return to the [facility] and work on connecting community agencies for further assistance. Patient requesting food and alcohol wipes. SW to follow up with RN, no other needs voiced. SW met with MD Cummings and discussed resources provided. DEREK then met with LYLE Keys to inform her of resources provided as well as patient's request for food and alcohol wipes. LYLE Keys to follow up. Cesia Lerma MSW, AMARI
[2022-09-21 14:07] VITALS: BP 120/66; PULSE 73
[2022-09-21] MEDS: cycloBENZAPRine HCl 10 MG Tablet PO (14:07)
== END 2022-09-21 15:27 | disposition home or self-care (01) ==
PROVIDERS: Emergency Provider Emergency Medicine; Visit Provider Emergency Medicine
DX: R55 Syncope and collapse (principal); E11.9 Type 2 diabetes mellitus without complications; S39.012A Strain of muscle, fascia and tendon of lower back, initial encounter; F17.210 Nicotine dependence, cigarettes, uncomplicated; S09.90XA Unspecified injury of head, initial encounter; E78.00 Pure hypercholesterolemia, unspecified; Z79.84 Long term (current) use of oral hypoglycemic drugs; I10 Essential (primary) hypertension; N28.9 Disorder of kidney and ureter, unspecified; W18.2XXA Fall in (into) shower or empty bathtub, initial encounter; Y92.59 Other trade areas as the place of occurrence of the external cause
CPT/HCPCS: 70450; 71046; 72125; 80048; 82962; 85025; 85610; 85730; 93005; 99283; J7030; A4216; J2405

== ENCOUNTER 2022-10-11 22:08 | Emergency (ER) | payer MEDICAID, SELFPAY ==
[2022-10-11 22:08] VITALS: BP 134/90; PULSE 111; RESP 18; TEMP 36.8; O2SAT 99; BMI 30.9
[2022-10-11 22:42] VITALS: O2SAT 98
[2022-10-11 23:10] VITALS: PULSE 89; RESP 16; O2SAT 99
--- NOTE | 2022-10-11 23:10 | EDS_ITS ---
HPI History of Present Illness Chief Complaint: Cough Informant: patient Onset/Context/Timing Onset: Weeks (1) Context: gradual and onset Timing: Continuous Quality: Positive for Wheezing Current Severity: Mild Maximum Severity: Mild Worsened by: Exertion and Coughing Relieved by: Rest Associated Symptoms cough, yellow sputum and green sputum Chest Pain: Positive for None Narrative Narrative: Patient states he has been having cough, congestion, sputum production, chest congestion, and wheezing for the past week. He states he has a history of asthma. It is not listed and it is unknown if that is true or if he simply has had wheezing in the past, but he states he was put on maintenance inhaler for it so I suspect he does have a history of asthma. He states he stopped smoking. He has had some occasional sinus pressure, but he is complaining more of the symptoms in his chest and concerned that he may have an atypical pneumonia which he has had in the past with this and put on antibiotics which he is requesting. He does not have a rescue inhaler nor is he been using it. [facility] Medical History (Updated 10/11/22 @ 23:[address] Randy Desai MD) Acid reflux Anxiety Asthma Diabetes High cholesterol Hypertension Insomnia PTSD (post-traumatic stress disorder) Home Medications lisinopril 10 mg tablet 10 mg PO DAILY 06/14/14 [History Last Taken Unknown] glyburide 5 mg tablet 10 mg PO BID 06/30/20 [History Last Taken Unknown] venlafaxine 150 mg capsule,extended release 24 hr 150 mg PO DAILY 06/30/20 [History Last Taken Unknown] budesonide-formoterol HFA 160 mcg-4.5 mcg/actuation aerosol inhaler (Symbicort) 2 puff inhalation BID #10.2 grams 12/23/20 [Rx Last Taken Unknown] tiotropium bromide 1.25 mcg/actuation mist for inhalation (Spiriva Respimat) 1 puff inhalation DAILY #4 grams 12/23/20 [Rx Last Taken Unknown] baclofen 20 mg tablet 20 mg PO TID 05/11/21 [History Last Taken Unknown] esomeprazole magnesium 20 mg capsule,delayed release (Nexium) 20 mg PO DAILY 05/11/21 [History Last Taken Unknown] gabapentin 300 mg tablet 300 mg PO TID 05/11/21 [History Last Taken Unknown] pioglitazone 45 mg tablet (Actos) 45 mg PO DAILY 05/11/21 [History Last Taken Unknown] montelukast 10 mg tablet (Singulair) 10 mg PO DAILY 07/08/21 [History Last Taken Unknown] doxycycline monohydrate 100 mg capsule 100 mg PO BID #20 caps 07/24/21 [Rx Last Taken Unknown] oxycodone-acetaminophen 5 mg-325 mg tablet (Endocet) 1 tab PO Q8H PRN pain 2 days #8 tabs 01/13/22 [Rx Last Taken Unknown] loperamide 2 mg capsule (Imodium A-D) 2 mg PO Q6H PRN loose stool 7 days #28 caps 02/22/22 [Rx Last Taken Unknown] ondansetron 4 mg disintegrating tablet 4 mg PO Q6H PRN nausea and vomiting #12 tabs 02/22/22 [Rx Last Taken Unknown] acetaminophen 500 mg tablet (Tylenol Extra Strength) 1,000 mg PO Q6H PRN pain #60 tabs 09/21/22 [Rx Last Taken Unknown] cyclobenzaprine 10 mg tablet 10 mg PO TID PRN Muscle Spasm #20 TABLETS 09/21/22 [Rx Last Taken Unknown] albuterol sulfate 90 mcg/actuation aerosol inhaler (Ventolin HFA) 1 - 2 puff inhalation Q4H PRN PRN Wheezing ##1 10/11/22 [Rx Last Taken Unknown] azithromycin 250 mg tablet 250 mg PO DAILY #6 TABLETS 10/11/22 [Rx Last Taken Unknown] prednisone 20 mg tablet 40 mg PO DAILY #10 TABLETS 10/11/22 [Rx Last Taken Unk nown] Allergy/AdvReac Type Severity Reaction Status Date / Time benzonatate Allergy Hives Verified 10/11/22 22:10 [From Tessalon Perles] cefuroxime axetil Allergy Hives Verified 10/11/22 22:10 [From Ceftin] cephalexin monohydrate Allergy Hives Verified 10/11/22 22:10 [From Keflex] sulfamethoxazole Allergy Itching Verified 10/11/22 22:10 [From Bactrim] trimethoprim [From Bactrim] Allergy Itching Verified 10/11/22 22:10 acetaminophen [From [place]] AdvReac Upset Verified 10/11/22 22:10 Stomach hydrocodone AdvReac Upset Verified 10/11/22 22:10 Stomach hydrocodone bitartrate AdvReac Upset Verified 10/11/22 22:10 [From [place]] Stomach Social History Smoking Status: Current every day smoker tobacco type: e-cigarettes ROS ROS ED Constitutional Constitutional ED: Denies chills or fever(s) Eyes Eyes: Denies change in vision or diplopia ENT ENT ED: Reports loss taste/smell, nasal congestion and rhinorrhea; Denies ear pain or sore throat Cardiovascular Cardiovascular: Denies chest pain or palpitations Respiratory/Chest Respiratory/Chest: Reports chest congestion, cough, dyspnea, sputum and wheezing Gastrointestinal Gastrointestinal: Denies abdominal pain, diarrhea, nausea or vomiting Genitourinary Genitourinary ED: Denies dysuria or hematuria Musculoskeletal Musculoskeletal: Denies myalgias or neck pain Integumentary Denies abscess or rash Neurologic Neurologic: Denies headache(s), paresthesias or weakness Psychiatric Psychiatric: Denies depression or suicidal thoughts Endocrine Endocrinology: Denies polydipsia or polyuria EXAM Physical Exam Const Vital Signs: 10/11/22 22:08 10/11/22 22:42 Temperature 98.3 F Temperature Source Temporal Pulse Rate 111 H Respiratory Rate 18 Respiratory Effort Normal Non-Labored Respiratory Depth Normal Respiratory Pattern Normal Blood Pressure 134/90 H Blood Pressure Mean 104 Pulse Ox 99 Oxygen Delivery Method Room Air Room Air Positive well nourished and well developed General Appearance ED: well developed and NAD HEENT Reports moist mucous membranes normocephalic and atraumatic Face and Sinus: sinuses nontender Throat: Negative for posterior oropharynx abnormal Eyes PERRL and EOMs intact bilaterally Neck no lymphadenopathy, supple and no meningeal signs Resp normal respiratory effort Auscultation: wheezes expiratory wheezes and throughout Cardio no murmurs Rate: regular rate Rhythm: regular rhythm GI non-tender and non-distended Neuro oriented x3, CN's II-XII intact bilaterally and no sensory deficits noted Sensorium / Orientation: alert Motor Exam: strength 5/5 throughout Psych Mood & Affect: anxious Skin Lesions: no lesions Rashes: no rashes MDM MDM MDM Narrative Medical decision making narrative: Patient does not have any objective findings of bacterial sinusitis. He is wheezing throughout but he is speaking in full sentences, he has mild tachycardia but otherwise his vital signs are normal. I do not think is unreasonable to cover for atypicals, but it is early to do so. He really wants antibiotics. He understands the risks, takes is responding self anyway, will prescribe him a Z-Leo as well as prednisone for what I suspected asthma flareup and Anoro inhaler. Swab for COVID and flu those are negative. Discharge Plan Triage Chief Complaint: Cough ED Provider: Randy Desai Dx/Rx/DC Orders Clinical Impression: Acute bronchitis, Acute asthma exacerbation Instructions: Acute Bronchitis, Asthma Prescriptions: New azithromycin [azithromycin] 250 mg tablet 250 mg PO DAILY Qty: 6 0RF Rx Instructions: double dose on day #1 albuterol sulfate [Ventolin HFA] 90 mcg/actuation HFA aerosol inhaler 1 - 2 puff inhalation Q4H PRN PRN (Reason: Wheezing) Qty: 1 0RF prednisone 20 mg tablet 40 mg PO DAILY Qty: 10 0RF No Action lisinopril 10 MG tablet 10 mg PO DAILY glyburide 5 MG tablet 10 mg PO BID Label Comments: TAKE 2 TABLETS BY MOUTH TWICE DAILY venlafaxine 150 MG capsule 150 mg PO DAILY Label Comments: TAKE 1 CAPSULE BY MOUTH ONCE DAILY budesonide-formoterol [Symbicort] 160-4.5 mcg/actuation HFA aerosol inhaler 2 puff inhalation BID Qty: 10.2 0RF Spiriva Respimat 1.25 mcg/actuation mist 1 puff inhalation DAILY Qty: 4 0RF pioglitazone [Actos] 45 mg Tablet 45 mg PO DAILY baclofen 20 mg Tablet 20 mg PO TID esomeprazole magnesium [Nexium] 20 mg Capsule,Delayed Release(Dr/Ec) 20 mg PO DAILY gabapentin 300 mg Tablet 300 mg PO TID montelukast [Singulair] 10 mg Tablet 10 mg PO DAILY doxycycline monohydrate 100 MG capsule 100 mg PO BID Qty: 20 0RF oxycodone-acetaminophen [Endocet] 5-325 mg tablet 1 tab PO Q8H PRN (Reason: pain) 2 Days Qty: 8 0RF ondansetron 4 mg tablet,disintegrating 4 mg PO Q6H PRN (Reason: nausea and vomiting) Qty: 12 0RF loperamide [Imodium A-D] 2 mg capsule 2 mg PO Q6H PRN (Reason: loose stool) 7 Days Qty: 28 0RF cyclobenzaprine [cyclobenzaprine] 10 mg tablet 10 mg PO TID PRN (Reason: Muscle Spasm) Qty: 20 0RF acetaminophen [Tylenol Extra Strength] 500 mg tablet 1,000 mg PO Q6H PRN (Reason: pain) Qty: 60 0RF Primary Care Provider: [facility] Nela Fonseca Referrals: [facility] Nela Fonseca [Primary Care Provider] - 10-14 Days if not better Disposition Disposition: Home, Self Care
== END 2022-10-12 00:47 | disposition home or self-care (01) ==
PROVIDERS: Emergency Provider Emergency Medicine; Visit Provider Emergency Medicine
DX: J45.901 Unspecified asthma with (acute) exacerbation (principal); E11.9 Type 2 diabetes mellitus without complications; I10 Essential (primary) hypertension; J20.9 Acute bronchitis, unspecified; E78.00 Pure hypercholesterolemia, unspecified; F41.9 Anxiety disorder, unspecified; Z79.899 Other long term (current) drug therapy; Z79.85 Long-term (current) use of injectable non-insulin antidiabetic drugs; J45.909 Unspecified asthma, uncomplicated; K21.9 Gastro-esophageal reflux disease without esophagitis; F43.10 Post-traumatic stress disorder, unspecified; F17.290 Nicotine dependence, other tobacco product, uncomplicated
CPT/HCPCS: 87811; 99282

== ENCOUNTER 2022-12-27 11:43 | Emergency (ER) | payer MEDICAID, SELFPAY ==
[2022-12-27 11:44] VITALS: BP 123/75; PULSE 71; RESP 18; TEMP 35.5; O2SAT 98
[2022-12-27 12:09] VITALS: BMI 30.7
--- NOTE | 2022-12-27 12:39 | EDS_ITS ---
HPI History of Present Illness Chief Complaint: Edema Informant: patient Narrative Narrative: Patient presents with edema to both lower extremities at the same time for the past 3 to 4 days which she has never had before. He denies any shortness of breath, chest discomfort, even with exertion. No orthopnea. No recent illness. No recent long travel, hospitalization, surgery, other immobilization, or history of DVT or PE. He states both of his legs are sore because they feel so tight and heavy because of the swelling but he denies any other pains. He is urinating normally. He does not use alcohol and has no history of liver disease or kidney disease that he knows of. He takes prescription for hypertension and diabetes and has had no changes in those, nor is he taking any [id number] medications recently including NSAIDs, no recent illness or injury and he does not use drugs. [facility] Medical History Acid reflux Anxiety Asthma Diabetes High cholesterol Hypertension Insomnia PTSD (post-traumatic stress disorder) Home Medications lisinopril 10 mg tablet 10 mg PO DAILY 06/14/14 [History Last Taken Unknown] glyburide 5 mg tablet 10 mg PO BID 06/30/20 [History Last Taken Unknown] venlafaxine 150 mg capsule,extended release 24 hr 150 mg PO DAILY 06/30/20 [History Last Taken Unknown] budesonide-formoterol HFA 160 mcg-4.5 mcg/actuation aerosol inhaler (Symbicort) 2 puff inhalation BID #10.2 grams 12/23/20 [Rx Last Taken Unknown] baclofen 20 mg tablet 20 mg PO TID 05/11/21 [History Last Taken Unknown] esomeprazole magnesium 20 mg capsule,delayed release (Nexium) 20 mg PO DAILY 05/11/21 [History Last Taken Unknown] gabapentin 300 mg tablet 300 mg PO TID 05/11/21 [History Last Taken Unknown] pioglitazone 45 mg tablet (Actos) 45 mg PO DAILY 05/11/21 [History Last Taken Unknown] doxycycline monohydrate 100 mg capsule 100 mg PO BID #20 caps 07/24/21 [Rx Last Taken Unknown] acetaminophen 500 mg tablet (Tylenol Extra Strength) 1,000 mg PO Q6H PRN pain #60 tabs 09/21/22 [Rx Last Taken Unknown] cyclobenzaprine 10 mg tablet 10 mg PO TID PRN Muscle Spasm #20 TABLETS 09/21/22 [Rx Last Taken Unknown] albuterol sulfate 90 mcg/actuation aerosol inhaler (Ventolin HFA) 1 - 2 puff inhalation Q4H PRN PRN Wheezing ##1 10/11/22 [Rx Last Taken Unknown] azithromycin 250 mg tablet 250 mg PO DAILY #6 TABLETS 10/11/22 [Rx Last Taken Unknown] furosemide 20 mg tablet 20 mg PO DAILY #14 tabs 12/27/22 [Rx Last Taken Unknown] potassium chloride 20 mEq tablet,extended release 20 meq PO BID #28 tabs 12/27/22 [Rx Last Taken Unknown] Allergy/AdvReac Type Severity Reaction Status Date / Time benzonatate Allergy Hives Verified 10/11/22 22:10 [From Tessalon Perles] cefuroxime axetil Allergy Hives Verified 10/11/22 22:10 [From Ceftin] cephalexin monohydrate Allergy Hives Verified 10/11/22 22:10 [From Keflex] sulfamethoxazole Allergy Itching Verified 10/11/22 22:10 [From Bactrim] trimethoprim [From Bactrim] Allergy Itching Verified 10/11/22 22:10 acetaminophen [From [place]] AdvReac Upset Verified 10/11/22 22:10 Stomach hydrocodone AdvReac Upset Verified 10/11/22 22:10 Stomach hydrocodone bitartrate AdvReac Upset Verified 10/11/22 22:10 [From [place]] Stomach Social History Smoking Status: Current every day smoker tobacco type: e-cigarettes ROS ROS ED Constitutional Constitutional ED: Denies chills or fever(s) Eyes Eyes: Denies change in vision or diplopia ENT ENT ED: Denies rhinorrhea or sore throat Cardiovascular Cardiovascular: Reports pedal edema; Denies chest pain, orthopnea, palpitations or paroxysmal nocturnal dyspnea Respiratory/Chest Respiratory/Chest: Denies cough, dyspnea, dyspnea on exertion, orthopnea or paroxysmal nocturnal dyspnea Gastrointestinal Gastrointestinal: Denies abdominal pain, diarrhea, nausea or vomiting Genitourinary Genitourinary ED: Denies dysuria or hematuria Musculoskeletal Musculoskeletal: Denies back pain or neck pain Integumentary Denies abscess or rash Neurologic Neurologic: Denies headache(s), paresthesias or weakness Psychiatric Psychiatric: Denies anxiety or suicidal thoughts EXAM Physical Exam Const Vital Signs: 12/27/22 11:44 12/27/22 12:10 12/27/22 14:23 Temperature 96 F L Temperature Source Temporal Pulse Rate 71 78 Respiratory Rate 18 20 H Respiratory Effort Normal Blood Pressure 123/75 H Blood Pressure Mean 91 Pulse Ox 98 98 Oxygen Delivery Method Room Air Room Air Positive well nourished and well developed General Appearance ED: well developed and NAD HEENT Reports moist mucous membranes normocephalic and atraumatic Eyes PERRL and EOMs intact bilaterally Neck full ROM and supple Resp normal respiratory effort and clear to auscultation bilaterally Cardio regular rate and regular rhythm Heart Sounds: murmur systolic I/ soft GI non-tender and non-distended Auscultation: normoactive bowel sounds Palpation: soft Back/Spine no CVA tenderness General Back: other FROM Extremity normal to inspection and full ROM Extremity Narrative: No calf tenderness bilaterally or palpable cords. General Extremety ED: Yes edema; Negative for pulses abnormal or tenderness General Extremity: edema bilateral lower extremity Details: moderate (Symmetric edema without signs of infection from both ankles to both mid shins, no edema at or above the knees.); Negative for pulses abnormal Neuro oriented x3, CN's II-XII intact bilaterally and no sensory deficits noted Sensorium / Orientation: awake and alert Motor Exam: strength 5/5 throughout Psych mental status grossly normal Skin no rashes or lesions noted and no wounds MDM MDM MDM Narrative Medical decision making narrative: Venous insufficiency, renal disease, heart disease including heart failure, and liver disease are all in the differential diagnosis here although the patient does not have a history of any of this, nor does he have specific history or exam to make any of these more likely than the other although hypertension and diabetes are risk factors for some of these. Notably his blood pressure is really good here, 123/75. His labs really are unremarkable, he has some very slight anemia, renal function and liver enzymes are all within normal limits, and his BNP is only 16.7, reliably ruling out decompensated acute congestive heart failure acutely. There was some delay because it took him a while to provide a urine specimen, he has a very slight amount of proteinuria, this is actually been higher with past specimens. Unknown if this is related, as he does not have hypoproteinemia. Given all of this, at this time I think it is reasonable to discharge him with a short course of diuretic and advised him to follow-up with his doctor and he is comfortable with that plan. Lab Data Attestation: I reviewed the patient's lab results. Labs: Laboratory Results - last 24 hr 12/27/22 12/27/22 12/27/22 13:00 13:00 13:00 WBC 6.1 RBC 3.76 L Hgb 11.5 L Hct 34.7 L MCV 92.3 MCH 30.6 MCHC 33.1 RDW Std Deviation 46.3 H RDW Coeff of Hai 13.6 Plt Count 211 MPV 9.5 Immature Gran % (Auto) 0.300 Neut % (Auto) 57.6 Lymph % (Auto) 27.7 [place] % (Auto) 9.0 Eos % (Auto) 4.9 Baso % (Auto) 0.5 Absolute Neuts (auto) 3.5 Absolute Lymphs (auto) 1.69 Nucleated RBC % 0 Sodium 140 Potassium 3.5 Chloride 107 Carbon Dioxide 29.0 Anion Gap 4 L BUN 8 Creatinine 0.77 Estim Creat Clear Calc 140.91 Est GFR (MDRD) Af Amer 136 Est GFR (MDRD) Non-Af 113 BUN/Creatinine Ratio 10.3 Glucose 145 H Calcium 8.5 Total Bilirubin 0.30 AST 15 ALT 17 Alkaline Phosphatase 117 B-Natriuretic Peptide 16.7 Total Protein 6.8 Albumin 3.2 Globulin 3.6 Albumin/Globulin Ratio 0.9 Urine Color Urine Clarity Urine pH Ur Specific [place] Urine Protein Urine Glucose (UA) Urine Ketones Urine Occult Blood Urine Nitrite Urine Bilirubin Urine Urobilinogen Ur Leukocyte Esterase Urine RBC Urine WBC Ur Squamous Epith Cells Urine Bacteria Urine Mucus 12/27/22 14:20 WBC RBC Hgb Hct MCV MCH MCHC RDW Std Deviation RDW Coeff of Hai Plt Count MPV Immature Gran % (Auto) Neut % (Auto) Lymph % (Auto) [place] % (Auto) Eos % (Auto) Baso % (Auto) Absolute Neuts (auto) Absolute Lymphs (auto) Nucleated RBC % Sodium Potassium Chloride Carbon Dioxide Anion Gap BUN Creatinine Estim Creat Clear Calc Est GFR (MDRD) Af Amer Est GFR (MDRD) Non-Af BUN/Creatinine Ratio Glucose Calcium Total Bilirubin AST ALT Alkaline Phosphatase B-Natriuretic Peptide Total Protein Albumin Globulin Albumin/Globulin Ratio Urine Color Yellow Urine Clarity Clear Urine pH 6.0 Ur Specific [place] 1.015 Urine Protein 15 H Urine Glucose (UA) Normal Urine Ketones Negative Urine Occult Blood Negative Urine Nitrite Negative Urine Bilirubin Negative Urine Urobilinogen 4 H Ur Leukocyte Esterase Negative Urine RBC 0 SEEN Urine WBC 0 SEEN Ur Squamous Epith Cells 0 SEEN Urine Bacteria 0 SEEN Urine Mucus 0 SEEN Discharge Plan Triage Chief Complaint: Edema ED Provider: Randy Desai Dx/Rx/DC Orders Clinical Impression: Bilateral lower extremity edema, Proteinuria of undiagnosed cause Instructions: Taking a Diuretic, ED Peripheral Edema, Bilateral Prescriptions: New furosemide 20 mg tablet 20 mg PO DAILY Qty: 14 0RF potassium chloride 20 mEq tablet extended release 20 meq PO BID Qty: 28 0RF No Action lisinopril 10 MG tablet 10 mg PO DAILY glyburide 5 MG tablet 10 mg PO BID Label Comments: TAKE 2 TABLETS BY MOUTH TWICE DAILY venlafaxine 150 MG capsule 150 mg PO DAILY Label Comments: TAKE 1 CAPSULE BY MOUTH ONCE DAILY budesonide-formoterol [Symbicort] 160-4.5 mcg/actuation HFA aerosol inhaler 2 puff inhalation BID Qty: 10.2 0RF pioglitazone [Actos] 45 mg Tablet 45 mg PO DAILY baclofen 20 mg Tablet 20 mg PO TID esomeprazole magnesium [Nexium] 20 mg Capsule,Delayed Release(Dr/Ec) 20 mg PO DAILY gabapentin 300 mg Tablet 300 mg PO TID doxycycline monohydrate 100 MG capsule 100 mg PO BID Qty: 20 0RF cyclobenzaprine [cyclobenzaprine] 10 mg tablet 10 mg PO TID PRN (Reason: Muscle Spasm) Qty: 20 0RF acetaminophen [Tylenol Extra Strength] 500 mg tablet 1,000 mg PO Q6H PRN (Reason: pain) Qty: 60 0RF azithromycin [azithromycin] 250 mg tablet 250 mg PO DAILY Qty: 6 0RF Rx Instructions: double dose on day #1 albuterol sulfate [Ventolin HFA] 90 mcg/actuation HFA aerosol inhaler 1 - 2 puff inhalation Q4H PRN PRN (Reason: Wheezing) Qty: 1 0RF Primary Care Provider: [facility] Nela Fonseca Referrals: [facility] Nela Fonseca [Primary Care Provider] - 1-2 Weeks Disposition Disposition: Home, Self Care
[2022-12-27 13:15] LABS: Absolute Lymphocyte Count 1.69 X10^3/uL (0.83-4.51); Absolute Neutrophil Count 3.5 X10^3/uL (2.0-7.7); Basophil# 0.03 X10^3/uL; Basophil% 0.5 % (0-1); Eosinophils% 4.9 % (0-5); Hematocrit 34.7 % (40-54); Hemoglobin 11.5 g/dL (13.0-16.5); Lymphocyte # 1.69 X10^3/ul (0.83-4.51); Lymphocyte % 27.7 % (19-41); Mean Corp Hgb Conc 33.1 g/dL (32-36); Mean Corpuscular Hgb 30.6 pg (27.0-32.0); Mean Corpuscular Volume 92.3 fL (80-94); Mean Platelet Vol. 9.5 fl (6.2-12.0); Monocyte# 0.55 X10^3/uL; NRBC Flagged by Analyzer 0 % (0-5); Neutrophil # 3.51 X10^3/uL (2.7-7.7); Neutrophil % 57.6 % (47-70); Platelet Count 211 K/mm3 (150-450); RBC Distribution Width CV 13.6 % (11.6-14.6); RBC Distribution Width SD 46.3 fl (35.1-43.9); Red Blood Count 3.76 M/mm3 (4.6-6.2); White Blood Count 6.1 K/mm3 (4.4-11.0)
[2022-12-27 13:27] LABS: ALB/GLOB Ratio 0.9 RATIO (0.9-2.4); AST(SGOT) 15 U/L (15-37); Alanine Aminotransfer ALT/SGPT 17 U/L (16-61); Albumin, Serum 3.2 g/dL (3.2-5.0); Alkaline Phosphatase 117 U/L (45-117); Anion Gap 4 (5-15); BUN 8 mg/dL (7-18); BUN/Creat Ratio 10.3 RATIO (10-20); Calcium,Total 8.5 mg/dL (8.5-10.1); Chloride 107 mmol/L (98-107); Creatinine, Serum 0.77 mg/dL (0.70-1.30); EST Glomerular Filtration Rate 113 mL/min (>60); Est Glom Filt Rate - Afr Amer 136 mL/min (>60); Estimated Creatinine Clearance 140.91 ml/min; Globulin 3.6 g/dL (2.2-4.2); Glucose 145 mg/dL (74-106); Potassium 3.5 mmol/L (3.5-5.1); Protein, Total 6.8 g/dL (6.4-8.2); Sodium Level 140 mmol/L (136-145)
[2022-12-27 13:34] LABS: BNP,B-Type NATRIURETIC PEPTIDE 16.7 pg/mL (0-100)
[2022-12-27 14:23] VITALS: PULSE 78; RESP 20; O2SAT 98
[2022-12-27 14:31] LABS: Bacteria 0 SEEN /hpf (None Seen); Mucous, Urine 0 SEEN /hpf (<or=2+); Red Blood Cells-Urine 0 SEEN /hpf (0-5); Squamous Epithelial Cells - UA 0 SEEN /hpf (0-5); White Blood Cells 0 SEEN /hpf (0-5)
[2022-12-27 14:37] LABS: Color, Urine Yellow (Yellow); Glucose, Dipstick Normal (Normal); Ketone-Dipstick Negative (Negative); Leukocyte Esterase-Dipstick Negative /ul (Negative); Nitrite-Dipstick Negative (Negative); Occult Blood-Urine Negative /ul (Negative); Protein-Dipstick 15 mg/dl (Negative); Specific Gravity, Urine 1.015 (1.002-1.030); Urine Bilirubin Dipstick Negative (Negative); Urine Clarity Clear (Clear); Urine Urobilinogen 4 mg/dl (Normal)
[2022-12-27 15:36] VITALS: BP 124/70; PULSE 71; RESP 16; O2SAT 97
== END 2022-12-27 15:37 | disposition home or self-care (01) ==
PROVIDERS: Emergency Provider Emergency Medicine; Visit Provider Emergency Medicine
DX: R60.0 Localized edema (principal); E11.9 Type 2 diabetes mellitus without complications; R80.9 Proteinuria, unspecified; F17.210 Nicotine dependence, cigarettes, uncomplicated; E78.00 Pure hypercholesterolemia, unspecified; I10 Essential (primary) hypertension; F41.9 Anxiety disorder, unspecified; J45.909 Unspecified asthma, uncomplicated; Z79.51 Long term (current) use of inhaled steroids; K21.9 Gastro-esophageal reflux disease without esophagitis
CPT/HCPCS: 80053; 81001; 83880; 85025; 99284; A4216

== ENCOUNTER → 2023-01-18 | Outpatient (CLI) | payer MEDICAID, SELFPAY ==
[2023-01-18 13:01] LABS: Absolute Lymphocyte Count 1.86 X10^3/uL (0.83-4.51); Absolute Neutrophil Count 4.6 X10^3/uL (2.0-7.7); Basophil# 0.06 X10^3/uL; Basophil% 0.8 % (0-1); Eosinophil# 0.41 X10^3/uL; Eosinophils% 5.5 % (0-5); Hematocrit 39.5 % (40-54); Hemoglobin 12.6 g/dL (13.0-16.5); Lymphocyte # 1.86 X10^3/ul (0.83-4.51); Lymphocyte % 24.9 % (19-41); Mean Corp Hgb Conc 31.9 g/dL (32-36); Mean Corpuscular Hgb 29.5 pg (27.0-32.0); Mean Corpuscular Volume 92.5 fL (80-94); Mean Platelet Vol. 9.9 fl (6.2-12.0); Monocyte# 0.58 X10^3/uL; Monocyte% 7.8 % (0-10); NRBC Flagged by Analyzer 0 % (0-5); Neutrophil # 4.55 X10^3/uL (2.7-7.7); Neutrophil % 60.7 % (47-70); Platelet Count 256 K/mm3 (150-450); RBC Distribution Width CV 13.3 % (11.6-14.6); RBC Distribution Width SD 45.6 fl (35.1-43.9); Red Blood Count 4.27 M/mm3 (4.6-6.2); White Blood Count 7.5 K/mm3 (4.4-11.0)
[2023-01-18 13:17] LABS: Hemoglobin A1c 6.4 % (3.8-5.6)
[2023-01-18 13:41] LABS: ALB/GLOB Ratio 0.9 RATIO (0.9-2.4); AST(SGOT) 13 U/L (15-37); Alanine Aminotransfer ALT/SGPT 18 U/L (16-61); Albumin, Serum 3.4 g/dL (3.2-5.0); Alkaline Phosphatase 132 U/L (45-117); Anion Gap 5 (5-15); BUN 7 mg/dL (7-18); Calcium,Total 8.5 mg/dL (8.5-10.1); Chloride 106 mmol/L (98-107); Cholesterol 186 mg/dL (200); Creatinine, Serum 0.88 mg/dL (0.70-1.30); EST Glomerular Filtration Rate 98 mL/min (>60); Est Glom Filt Rate - Afr Amer 118 mL/min (>60); Globulin 3.6 g/dL (2.2-4.2); Glucose 218 mg/dL (74-106); High Density Lipoprotein 44 mg/dL; Potassium 4.1 mmol/L (3.5-5.1); Sodium Level 138 mmol/L (136-145); Thyroid Stim Hormone (TSH) 1.65 uIU/mL (0.358-3.74); Triglycerides 143 mg/dL; Very Low Density Lipoprotein 29 mg/dL (5-40)
[2023-01-24 13:08] LABS: Testosterone, % Free 2.25 % (1.50-4.20); Testosterone, Free 4.03 ng/dL (5.00-21.00); Testosterone, Total 179 ng/dL (264-916)
== END | disposition home or self-care (01) ==
PROVIDERS: Referring Provider Nurse Practitioner Family; Visit Provider Nurse Practitioner Family
DX: N52.9 Male erectile dysfunction, unspecified (principal)
CPT/HCPCS: 36415; 80053; 80061; 83036; 84402; 84403; 84443; 85025

== ENCOUNTER 2023-02-05 20:08 | Emergency (ER) | payer MEDICAID, SELFPAY ==
[2023-02-05 20:09] VITALS: BP 119/71; PULSE 100; RESP 20; TEMP 36.5; O2SAT 99; BMI 30.3
--- NOTE | 2023-02-05 21:30 | RAD_ITS ---
STUDY: X-RAY - RIGHT FOOT CLINICAL: Male, 52 years old. 1st ray pain TECHNIQUE: 3 view(s) of the foot. COMPARISON: None. FINDINGS: Normal talus, calcaneus, and tarsal bones. Normal visualized subtalar, talonavicular, calcaneocuboid, tarsal and tarsometatarsal articulations. Normal metatarsi. Status post fusion of the first metatarsal phalangeal joint. There is mild subchondral lucency of the lateral shaft of the distal metatarsal possibly representing early changes of acute osteomyelitis. Normal tibial and fibular sesamoid bones. Normal interphalangeal joint of the great toe. Normal phalanges of the great toe. Normal second through fifth metatarsophalangeal joints. Normal interphalangeal joints and phalanges of the lesser toes. The soft tissue structures are unremarkable. RAD/Foot min 3 Views IMPRESSION: Postsurgical changes status post fusion of the first metatarsal phalangeal joint. No acute fracture or dislocation. Cannot definitively exclude early changes of acute osteomyelitis of the distal first metatarsal. MRI would be useful for more definitive evaluation if indicated Electronically Signed: Justin King MD at 22:08 EDT ,
[2023-02-05 22:03] LABS: Bedside Glucose 152 mg/dL (74-106)
--- NOTE | 2023-02-05 22:04 | EDS_ITS ---
HPI History of Present Illness Chief Complaint: Other, Pain/Inj Informant: patient Narrative Narrative: Patient had sudden onset of pain in the distal aspect of his right great toe today several hours prior to arrival. Severe. [place] like someone stabbing him in the toe with an ice pick. States he has a history of peripheral neuropathy, he also had toe surgery in the past and this toe, and he is a diabetic. He usually keeps his blood sugars under control. No recent fevers, no injury, no obvious reason for the pain, he did have pain in his toe a long time ago when he had neuropathy but it progressed to the point where he is insensate for the past 8 years and this is the first time it is hurt. [facility] Medical History Acid reflux Anxiety Asthma Diabetes High cholesterol Hypertension Insomnia PTSD (post-traumatic stress disorder) Home Medications lisinopril 10 mg tablet 10 mg PO DAILY 06/14/14 [History Last Taken Unknown] glyburide 5 mg tablet 10 mg PO BID 06/30/20 [History Last Taken Unknown] venlafaxine 150 mg capsule,extended release 24 hr 150 mg PO DAILY 06/30/20 [History Last Taken Unknown] budesonide-formoterol HFA 160 mcg-4.5 mcg/actuation aerosol inhaler (Symbicort) 2 puff inhalation BID #10.2 grams 12/23/20 [Rx Last Taken Unknown] baclofen 20 mg tablet 20 mg PO TID 05/11/21 [History Last Taken Unknown] esomeprazole magnesium 20 mg capsule,delayed release (Nexium) 20 mg PO DAILY 05/11/21 [History Last Taken Unknown] gabapentin 300 mg tablet 300 mg PO TID 05/11/21 [History Last Taken Unknown] pioglitazone 45 mg tablet (Actos) 45 mg PO DAILY 05/11/21 [History Last Taken Unknown] doxycycline monohydrate 100 mg capsule 100 mg PO BID #20 caps 07/24/21 [Rx Last Taken Unknown] acetaminophen 500 mg tablet (Tylenol Extra Strength) 1,000 mg (2 x 500 mg) PO Q6H PRN pain #60 tabs 09/21/22 [Rx Last Taken Unknown] cyclobenzaprine 10 mg tablet 10 mg PO TID PRN Muscle Spasm #20 TABLETS 09/21/22 [Rx Last Taken Unknown] albuterol sulfate 90 mcg/actuation aerosol inhaler (Ventolin HFA) 1 - 2 puff inhalation Q4H PRN PRN Wheezing ##1 10/11/22 [Rx Last Taken Unknown] azithromycin 250 mg tablet 250 mg PO DAILY #6 TABLETS 10/11/22 [Rx Last Taken Unknown] furosemide 20 mg tablet 20 mg PO DAILY #14 tabs 12/27/22 [Rx Last Taken Unknown] potassium chloride 20 mEq tablet,extended release 20 meq PO BID #28 tabs 12/27/22 [Rx Last Taken Unknown] doxycycline monohydrate 100 mg capsule 100 mg PO BID #10 CAPSULES 02/05/23 [Rx Last Taken Unknown] gabapentin 800 mg tablet 800 mg PO DAILY #14 tabs 02/05/23 [Rx Last Taken Unknown] Allergy/AdvReac Type Severity Reaction Status Date / Time benzonatate Allergy Hives Verified 02/05/23 20:09 [From Tessalon Perles] cefuroxime axetil Allergy Hives Verified 02/05/23 20:09 [From Ceftin] cephalexin monohydrate Allergy Hives Verified 02/05/23 20:09 [From Keflex] sulfamethoxazole Allergy Itching Verified 02/05/23 20:09 [From Bactrim] trimethoprim [From Bactrim] Allergy Itching Verified 02/05/23 20:09 Social History Smoking Status: Current every day smoker tobacco type: e-cigarettes ROS ROS ED Constitutional Constitutional ED: Denies chills or fever(s) Musculoskeletal Musculoskeletal: Reports extremity pain; Denies neck pain Integumentary Denies Abrasions, rash or wounds Neurologic Neurologic: Reports paresthesias RLE and LLE; Denies weakness EXAM Physical Exam Const Vital Signs: 02/05/23 20:09 Temperature 97.7 F L Temperature Source Temporal Pulse Rate 100 Respiratory Rate 20 H Blood Pressure 119/71 Blood Pressure Mean 87 Pulse Ox 99 Oxygen Delivery Method Room Air Positive well nourished and well developed General Appearance ED: well developed and NAD Neck full ROM and supple Back/Spine normal ROM and normal to inspection Neuro oriented x3 and no focal motor deficits Sensorium / Orientation: alert Psych mental status grossly normal and thought process normal Skin no wounds Skin Narrative: Right great toe: Well-healed surgical incision dorsally in the metacarpal and proximal phalanx, distally at the tip of the toe there is very mild hyperemia but no induration or lesion or abscess. The nail is normal-appearing. No significant tenderness in the area but he has neuropathy and altered sensation. Rashes: no rashes MDM MDM MDM Narrative Medical decision making narrative: Three-view x-ray series of my interpretation shows good hardware placement, and no radiographic abnormality in the distal aspect of the first ray, the area of interest. Given the hyperemia, I question the possibility of an early infection, it is different from the rest of his toes unless it is because he has been rubbing it. I am going to put him on short course of doxycycline empirically, I checked his blood sugar it is 152, and prescribe him some gabapentin which he used to have for pain that really tended to work. Neuropathic pain without infection certainly is in the differential diagnosis advised to follow-up he is comfortable with that plan. Lab Data Attestation: I reviewed the patient's lab results. Labs: Laboratory Results - last 24 hr 02/05/23 21:45 POC Glucose 152 H Discharge Plan Triage Chief Complaint: Other, Pain/Inj ED Provider: Randy Desai Dx/Rx/DC Orders Clinical Impression: Pain of right great toe Instructions: ED Pain, Acute, Uncertain Cause Prescriptions: New gabapentin 800 mg tablet 800 mg PO DAILY Qty: 14 0RF doxycycline monohydrate 100 mg capsule 100 mg PO BID Qty: 10 0RF No Action lisinopril 10 MG tablet 10 mg PO DAILY glyburide 5 MG tablet 10 mg PO BID Patient Comments: TAKE 2 TABLETS BY MOUTH TWICE DAILY venlafaxine 150 MG capsule 150 mg PO DAILY Patient Comments: TAKE 1 CAPSULE BY MOUTH ONCE DAILY budesonide-formoterol [Symbicort] 160-4.5 mcg/actuation HFA aerosol inhaler 2 puff inhalation BID Qty: 10.2 0RF pioglitazone [Actos] 45 mg Tablet 45 mg PO DAILY baclofen 20 mg Tablet 20 mg PO TID esomeprazole magnesium [Nexium] 20 mg Capsule,Delayed Release(Dr/Ec) 20 mg PO DAILY gabapentin 300 mg Tablet 300 mg PO TID doxycycline monohydrate 100 MG capsule 100 mg PO BID Qty: 20 0RF cyclobenzaprine [cyclobenzaprine] 10 mg tablet 10 mg PO TID PRN (Reason: Muscle Spasm) Qty: 20 0RF acetaminophen [Tylenol Extra Strength] 500 mg tablet 1,000 mg PO Q6H PRN (Reason: pain) Qty: 60 0RF azithromycin [azithromycin] 250 mg tablet 250 mg PO DAILY Qty: 6 0RF Rx Instructions: double dose on day #1 albuterol sulfate [Ventolin HFA] 90 mcg/actuation HFA aerosol inhaler 1 - 2 puff inhalation Q4H PRN PRN (Reason: Wheezing) Qty: 1 0RF furosemide 20 mg tablet 20 mg PO DAILY Qty: 14 0RF potassium chloride 20 mEq tablet extended release 20 meq PO BID Qty: 28 0RF Primary Care Provider: Care Physician,No Primary Referrals: Care Physician,No Primary [Primary Care Provider] - Doctor,Your [Non-Staff] - 3-5 Days if not improving Disposition Disposition: Home, Self Care
[2023-02-05] MEDS: Doxycycline 100 MG CAPSULE PO (22:08)
[2023-02-05 22:12] VITALS: BP 119/71; PULSE 77; RESP 15; O2SAT 99
== END 2023-02-05 22:19 | disposition home or self-care (01) ==
PROVIDERS: Emergency Provider Emergency Medicine; Visit Provider Emergency Medicine
DX: M79.674 Pain in right toe(s) (principal); E11.40 Type 2 diabetes mellitus with diabetic neuropathy, unspecified; F17.210 Nicotine dependence, cigarettes, uncomplicated; I10 Essential (primary) hypertension; E78.00 Pure hypercholesterolemia, unspecified; J45.909 Unspecified asthma, uncomplicated
CPT/HCPCS: 73630; 82962; 99283

== ENCOUNTER 2023-02-15 20:06 | Emergency (ER) | payer MEDICAID, SELFPAY ==
[2023-02-15 20:07] VITALS: BP 135/83; PULSE 100; RESP 18; TEMP 36.4; O2SAT 97
--- NOTE | 2023-02-15 20:24 | RAD_ITS ---
STUDY: X-RAY - LEFT SCAPULA REASON FOR EXAM: Male, 52 years old. trauma TECHNIQUE: 3 view(s) of the scapula were obtained. COMPARISON: None. FINDINGS: Normal scapula, including the osseous glenoid rim, acromion, scapular neck, spine, coracoid process, and visualized body. Normal glenohumeral articulation. Normal acromioclavicular joint. Normal visualized humeral head. Normal visualized pulmonary apex. RAD/Scapula IMPRESSION: Normal plain film x-ray examination of the scapula. Electronically Signed: Justin King MD at 21:47 EDT ,
--- NOTE | 2023-02-15 20:24 | RAD_ITS ---
STUDY: X-RAY - LEFT WRIST REASON FOR EXAM: Male, 52 years old. trauma TECHNIQUE: 3 view(s) of the wrist were obtained. COMPARISON: February 15, 2023 10:16 AM FINDINGS: Status post closed reduction of previously described avulsion fracture of the triquetrum with fracture fragments in near-anatomic alignment and position RAD/Wrist min 3 Views IMPRESSION: Status post reduction of mildly displaced triquetral fracture of the right wrist Electronically Signed: Justin King MD at 21:45 EDT ,
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
--- NOTE | 2023-02-15 20:50 | RAD_ITS ---
STUDY: X-RAY CHEST REASON FOR EXAM: Male, 52 years old. trauma TECHNIQUE: AP portable COMPARISON: September 21, 2022 FINDINGS: There is less than optimal inspiratory effort however the lungs are clear. There is no demonstrated pleural abnormality. Normal size heart. Normal mediastinum and kim. Normal visualized pulmonary arteries. Normal visualized aortic arch and descending thoracic aorta. Normal visualized thoracic spine. Normal visualized ribs, clavicles, and shoulders. There is no demonstrated abnormality of the visualized soft tissue structures of the upper abdomen. RAD/Chest 1 View (Portable) IMPRESSION: Diminished inspiratory effort. No acute disease Electronically Signed: Justin King MD at 21:47 EDT ,
[2023-02-15] MEDS: Ibuprofen 200 MG Tablet 400 MG PO (22:25)
[2023-02-15 22:26] VITALS: BP 137/69; PULSE 84; RESP 18; O2SAT 97
== END 2023-02-15 22:27 | disposition home or self-care (01) ==
PROVIDERS: Emergency Provider Emergency Medicine; Visit Provider Emergency Medicine
DX: S40.012A Contusion of left shoulder, initial encounter (principal); E11.9 Type 2 diabetes mellitus without complications; I10 Essential (primary) hypertension; E78.00 Pure hypercholesterolemia, unspecified; Z79.899 Other long term (current) drug therapy; J45.909 Unspecified asthma, uncomplicated; F41.9 Anxiety disorder, unspecified; K21.9 Gastro-esophageal reflux disease without esophagitis; Z79.51 Long term (current) use of inhaled steroids; F17.290 Nicotine dependence, other tobacco product, uncomplicated; S60.212A Contusion of left wrist, initial encounter; Y08.02XA Assault by strike by baseball bat, initial encounter
CPT/HCPCS: 71045; 73010; 73110; 99283

== ENCOUNTER → 2023-05-30 | Outpatient (CLI) | payer MEDICAID, SELFPAY | END | disposition home or self-care (01) | LOC: RAD.FUTURE 10:57 | PROVIDERS: Visit Provider Nurse Practitioner Family | DX: M25.561 Pain in right knee (principal) ==

== ENCOUNTER → 2023-06-20 | Outpatient (CLI) | payer OTHER, MEDICAID, SELFPAY ==
--- NOTE | 2023-06-20 10:35 | RAD_ITS ---
STUDY: X-RAY - RIGHT KNEE REASON FOR EXAM: Male, 53 years old. RIGHT KNEE PAIN TECHNIQUE: 3 view(s) of the knee. COMPARISON: May 11, 2021 FINDINGS: Normal visualized distal femur. Normal visualized proximal tibia and fibula. Normal proximal tibiofibular articulation. Severely narrowed medial femorotibial compartment with valgus deformity. Normal lateral femorotibial compartment. Normal patellofemoral articulation. The soft tissue structures are unremarkable. There has been progressive narrowing of the medial compartment of the joint since prior study RAD/Knee 3 Views IMPRESSION: Degenerative changes. No acute fracture or other significant bony pathology. Electronically Signed: Justin King MD at 18:17 EST Reading Location ID and State: [facility] / [place] Tel , Service support ,
== END | disposition home or self-care (01) ==
LOC: RAD 10:30
PROVIDERS: PCP Nurse Practitioner Family; Referring Provider Nurse Practitioner Family; Visit Provider Nurse Practitioner Family
DX: M25.561 Pain in right knee (principal)
CPT/HCPCS: 73562

== ENCOUNTER 2023-07-02 10:11 | Emergency (ER) | payer OTHER, MEDICAID, SELFPAY ==
[2023-07-02 10:11] VITALS: BP 133/86; PULSE 103; RESP 16; TEMP 36; O2SAT 97; BMI 30.6
--- NOTE | 2023-07-02 10:50 | EX.ED.DYSGE1 ---
HPI History of Present Illness Chief Complaint: Fever Informant: patient Onset/Context/Timing Onset: Yesterday Context: Sudden Onset Timing: Continuous Quality: Aching Location: Generalized Worsened by: Nothing Relieved by: Nothing Narrative Narrative: Patient presents with fever and myalgias that began yesterday. Patient states it began rather suddenly. Patient states it has been constant. Patient states his temperature was up to 105 at home. Patient admits to some rhinorrhea and sore throat. Patient admits to some nausea and vomiting. Patient states he is unable to keep anything down including his medications. Patient admits to a cough and some shortness of breath. Patient admits to some general myalgias. Patient also states that he has had several crowns fall off of his teeth recently. [facility] Medical History Acid reflux Anxiety Asthma Diabetes High cholesterol Hypertension Insomnia PTSD (post-traumatic stress disorder) Home Medications lisinopril 10 mg tablet 10 mg PO DAILY 06/14/14 [History Last Taken Unknown] glyburide 5 mg tablet 10 mg PO BID 06/30/20 [History Last Taken Unknown] venlafaxine 150 mg capsule,extended release 24 hr 150 mg PO DAILY 06/30/20 [History Last Taken Unknown] budesonide-formoterol HFA 160 mcg-4.5 mcg/actuation aerosol inhaler (Symbicort) 2 puff inhalation BID #10.2 grams 12/23/20 [Rx Last Taken Unknown] baclofen 20 mg tablet 20 mg PO TID 05/11/21 [History Last Taken Unknown] esomeprazole magnesium 20 mg capsule,delayed release (Nexium) 20 mg PO DAILY 05/11/21 [History Last Taken Unknown] gabapentin 300 mg tablet 300 mg PO TID 05/11/21 [History Last Taken Unknown] pioglitazone 45 mg tablet (Actos) 45 mg PO DAILY 05/11/21 [History Last Taken Unknown] doxycycline monohydrate 100 mg capsule 100 mg PO BID #20 caps 07/24/21 [Rx Last Taken Unknown] acetaminophen 500 mg tablet (Tylenol Extra Strength) 1,000 mg (2 x 500 mg) PO Q6H PRN pain #60 tabs 09/21/22 [Rx Last Taken Unknown] cyclobenzaprine 10 mg tablet 10 mg PO TID PRN Muscle Spasm #20 TABLETS 09/21/22 [Rx Last Taken Unknown] albuterol sulfate 90 mcg/actuation aerosol inhaler (Ventolin HFA) 1 - 2 puff inhalation Q4H PRN PRN Wheezing ##1 10/11/22 [Rx Last Taken Unknown] azithromycin 250 mg tablet 250 mg PO DAILY #6 TABLETS 10/11/22 [Rx Last Taken Unknown] furosemide 20 mg tablet 20 mg PO DAILY #14 tabs 12/27/22 [Rx Last Taken Unknown] potassium chloride 20 mEq tablet,extended release 20 meq PO BID #28 tabs 12/27/22 [Rx Last Taken Unknown] doxycycline monohydrate 100 mg capsule 100 mg PO BID #10 CAPSULES 02/05/23 [Rx Last Taken Unknown] gabapentin 800 mg tablet 800 mg PO DAILY #14 tabs 02/05/23 [Rx Last Taken Unknown] Allergy/AdvReac Type Severity Reaction Status Date / Time benzonatate Allergy Hives Verified 02/15/23 20:10 [From Tessalon Perles] cefuroxime axetil Allergy Hives Verified 02/15/23 20:10 [From Ceftin] cephalexin monohydrate Allergy Hives Verified 02/15/23 20:10 [From Keflex] sulfamethoxazole Allergy Itching Verified 02/15/23 20:10 [From Bactrim] trimethoprim [From Bactrim] Allergy Itching Verified 02/15/23 20:10 Surgical History History of back surgery History of facial surgery Hx of foot surgery Social History Smoking Status: Current every day smoker tobacco type: e-cigarettes ROS ROS ED Constitutional Constitutional ED: Reports fever(s); Denies chills Eyes Eyes: Reports change in vision; Denies blurry vision ENT ENT ED: Reports rhinorrhea and sore throat Cardiovascular Cardiovascular: Denies chest pain or palpitations Respiratory/Chest Respiratory/Chest: Reports cough and dyspnea Gastrointestinal Gastrointestinal: Reports nausea and vomiting Genitourinary Genitourinary ED: Denies dysuria or hematuria Musculoskeletal Musculoskeletal: Reports back pain and neck pain Integumentary Denies abscess or rash Neurologic Neurologic: Denies headache(s) or weakness Allergic/Immunologic Allergic/Immunologic ED: Denies mouth swelling or urticaria EXAM Physical Exam Const Vital Signs: 07/02/23 10:11 07/02/23 11:21 07/02/23 11:22 Temperature 96.8 F L Temperature Source Temporal Pulse Rate 103 H Respiratory Rate 16 Respiratory Effort Normal Non-Labored Normal Respiratory Depth Normal Respiratory Pattern Normal Normal Blood Pressure 133/86 H Blood Pressure Mean 101 Pulse Ox 97 Oxygen Delivery Method Room Air 07/02/23 11:23 Temperature 98.1 F Temperature Source Oral Pulse Rate Respiratory Rate Respiratory Effort Respiratory Depth Respiratory Pattern Blood Pressure Blood Pressure Mean Pulse Ox Oxygen Delivery Method Positive well nourished and well developed General Appearance ED: well developed and NAD HEENT Reports moist mucous membranes Neck supple and no JVD Resp normal respiratory effort and clear to auscultation bilaterally Cardio regular rate and regular rhythm GI non-tender and non-distended Palpation: soft Extremity normal to inspection General Extremety ED: Negative for edema General Extremity: Negative for edema Neuro oriented x3, CN's II-XII intact bilaterally and no sensory deficits noted Sensorium / Orientation: alert Motor Exam: strength 5/5 throughout Psych mental status grossly normal MDM MDM MDM Narrative Medical decision making narrative: Differential diagnosis includes viral illness, COVID-19 infection, influenza infection, dehydration, urinary tract infection, pneumonia, DKA, and electrolyte abnormality. Chest x-ray will be obtained to assess for pneumonia. Urinalysis will be obtained to assess for urinary tract infection. CBC will be obtained to assess for leukocytosis and anemia. Basic metabolic profile will be obtained to assess for electrolyte abnormality and renal function. COVID-19 rapid antigen will be obtained to assess for COVID-19 infection. Influenza A and influenza B antigens will be obtained to assess for influenza infection. Serum acetone will be obtained to assess for DKA. Lab Data Attestation: I reviewed the patient's lab results. Lab results narrative: CBC was reviewed. White blood cell count was 4.0. Hemoglobin was 12.0 and hematocrit was 38.3. The remainder is within normal limits. Basic metabolic profile was reviewed and was within normal limits. Urinalysis was reviewed. There is no evidence of urinary tract infection or hematuria. Serum acetone was reviewed and was negative. COVID-19 rapid antigen was reviewed and was negative. Influenza A rapid antigen was reviewed and was positive. Influenza B was negative. Labs: Laboratory Results - last 24 hr 07/02/23 07/02/23 11:20 12:43 WBC 4.0 L RBC 4.15 L Hgb 12.0 L Hct 38.3 L MCV 92.3 MCH 28.9 MCHC 31.3 L RDW Std Deviation 46.5 H RDW Coeff of Hai 13.6 Plt Count 226 MPV 8.9 Immature Gran % (Auto) 0.300 Neut % (Auto) 73.4 H Lymph % (Auto) 10.4 L [place] % (Auto) 14.9 H Eos % (Auto) 0.5 Baso % (Auto) 0.5 Absolute Neuts (auto) 2.9 Absolute Lymphs (auto) 0.41 L Nucleated RBC % 0 Differential Comment SCANNED Diff Path Review November foll Sodium 138 Potassium 3.8 Chloride 105 Carbon Dioxide 31.0 Anion Gap 2 L BUN 11 Creatinine 0.89 Estim Creat Clear Calc 120.56 Est GFR (MDRD) Af Amer 116 Est GFR (MDRD) Non-Af 96 BUN/Creatinine Ratio 12.4 Glucose 60 L Calcium 8.6 Urine Color Yellow Urine Clarity Clear Urine pH 6.0 Ur Specific [place] 1.020 Urine Protein Negative Urine Glucose (UA) Normal Urine Ketones Negative Urine Occult Blood Negative Urine Nitrite Negative Urine Bilirubin Negative Urine Urobilinogen 4 H Ur Leukocyte Esterase 25 H Urine RBC 0 SEEN Urine WBC 0-5 SEEN Ur Squamous Epith Cells 0 SEEN Urine Bacteria 0 SEEN Urine Mucus 0 SEEN Acetone Level NEGATIVE Radiography Chest X-Ray - ED: 2 View, Read by ED Physician, Read by Radiologist and No Acute Disease Diagnostic Testing: Clinical Impression(s) from Imaging Studies Chest X-Ray 07/02/23 10:56 IMPRESSION: Findings suggestive of mild degree of CHF with superimposed bibasilar atelectasis and/or early infiltrate. Electronically Signed: Anuj Goldman MD at 12:16 EST , PA and lateral chest x-ray was obtained. There are 2 views. On my independent interpretation, lung childress bibasilar atelectasis. There is normal cardiac silhouette. Bony thorax is normal. There is no acute process noted. Radiologist also interpreted the x-ray and agrees. Treatment and Re-Evaluation :: Patient was advised of his findings. Patient was instructed to drink plenty of fluids. Patient was instructed to take Tylenol or ibuprofen as needed for any pain or fevers. Patient was instructed to follow-up with his primary care physician in 5 to 7 days. Patient understood and was agreeable with the plan. All questions were answered. Discharge Plan Triage Chief Complaint: Fever Other Complaint: Fall Neuro S/Sx ED Provider: Kurt Hughes Dx/Rx/DC Orders Clinical Impression: Influenza A, Acute febrile illness Instructions: ED Influenza (Adult) Prescriptions: No Action lisinopril 10 MG tablet 10 mg PO DAILY glyburide 5 MG tablet 10 mg PO BID Patient Comments: TAKE 2 TABLETS BY MOUTH TWICE DAILY venlafaxine 150 MG capsule 150 mg PO DAILY Patient Comments: TAKE 1 CAPSULE BY MOUTH ONCE DAILY budesonide-formoterol [Symbicort] 160-4.5 mcg/actuation HFA aerosol inhaler 2 puff inhalation BID Qty: 10.2 0RF pioglitazone [Actos] 45 mg Tablet 45 mg PO DAILY baclofen 20 mg Tablet 20 mg PO TID esomeprazole magnesium [Nexium] 20 mg Capsule,Delayed Release(Dr/Ec) 20 mg PO DAILY gabapentin 300 mg Tablet 300 mg PO TID doxycycline monohydrate 100 MG capsule 100 mg PO BID Qty: 20 0RF cyclobenzaprine [cyclobenzaprine] 10 mg tablet 10 mg PO TID PRN (Reason: Muscle Spasm) Qty: 20 0RF acetaminophen [Tylenol Extra Strength] 500 mg tablet 1,000 mg PO Q6H PRN (Reason: pain) Qty: 60 0RF azithromycin [azithromycin] 250 mg tablet 250 mg PO DAILY Qty: 6 0RF Rx Instructions: double dose on day #1 albuterol sulfate [Ventolin HFA] 90 mcg/actuation HFA aerosol inhaler 1 - 2 puff inhalation Q4H PRN PRN (Reason: Wheezing) Qty: 1 0RF furosemide 20 mg tablet 20 mg PO DAILY Qty: 14 0RF potassium chloride 20 mEq tablet extended release 20 meq PO BID Qty: 28 0RF gabapentin 800 mg tablet 800 mg PO DAILY Qty: 14 0RF doxycycline monohydrate 100 mg capsule 100 mg PO BID Qty: 10 0RF Primary Care Provider: Tatyana Sawyer NP Referrals: Tatyana Sawyer NP, LAUNCH MANAGER-C [Primary Care Provider] - 5-7 Days Disposition Disposition: Home, Self Care
--- NOTE | 2023-07-02 10:56 | RAD_ITS ---
STUDY: X-RAY CHEST REASON FOR EXAM: Male, 53 years old. Fever TECHNIQUE: PA and lateral views of the chest. COMPARISON: Comparison is made with prior study February 15, 2023. FINDINGS: Increased markings at the lung bases suggestive of atelectasis and/or early infiltrates superimposed on mild degree of CHF. There is no demonstrated pleural abnormality. There is mild cardiac enlargement. Normal mediastinum and kim. Normal visualized pulmonary arteries. Normal visualized aortic arch and descending thoracic aorta. Normal visualized thoracic spine. Normal visualized ribs, clavicles, and shoulders. There is no demonstrated abnormality of the visualized soft tissue structures of the upper abdomen. RAD/Chest PA and Lateral IMPRESSION: Findings suggestive of mild degree of CHF with superimposed bibasilar atelectasis and/or early infiltrate. Electronically Signed: Anuj Goldman MD at 12:16 EST ,
[2023-07-02] MEDS: Ondansetron 4 MG/2 ML Vial IV (11:20)
[2023-07-02] MEDS: 0.9% Normal Saline (1000mL) 1,000 ML 1000 ML IV (11:20)
[2023-07-02 11:23] VITALS: TEMP 36.7
[2023-07-02 11:33] LABS: Absolute Lymphocyte Count 0.41 X10^3/uL (0.83-4.51); Absolute Neutrophil Count 2.9 X10^3/uL (2.0-7.7); Basophil# 0.02 X10^3/uL; Basophil% 0.5 % (0-1); Eosinophil# 0.02 X10^3/uL; Eosinophils% 0.5 % (0-5); Hematocrit 38.3 % (40-54); Lymphocyte # 0.41 X10^3/ul (0.83-4.51); Lymphocyte % 10.4 % (19-41); Mean Corp Hgb Conc 31.3 g/dL (32-36); Mean Corpuscular Hgb 28.9 pg (27.0-32.0); Mean Corpuscular Volume 92.3 fL (80-94); Mean Platelet Vol. 8.9 fl (6.2-12.0); Monocyte# 0.59 X10^3/uL; Monocyte% 14.9 % (0-10); NRBC Flagged by Analyzer 0 % (0-5); Neutrophil # 2.91 X10^3/uL (2.7-7.7); Neutrophil % 73.4 % (47-70); POSITIVE DIFFERENTIAL YES; Platelet Count 226 K/mm3 (150-450); RBC Distribution Width CV 13.6 % (11.6-14.6); RBC Distribution Width SD 46.5 fl (35.1-43.9); Red Blood Count 4.15 M/mm3 (4.6-6.2)
[2023-07-02 11:34] LABS: Differential Indicated SCAN CRITERIA MET
[2023-07-02 11:45] LABS: Anion Gap 2 (5-15); BUN 11 mg/dL (7-18); BUN/Creat Ratio 12.4 RATIO (10-20); Calcium,Total 8.6 mg/dL (8.5-10.1); Chloride 105 mmol/L (98-107); Creatinine, Serum 0.89 mg/dL (0.70-1.30); EST Glomerular Filtration Rate 96 mL/min (>60); Est Glom Filt Rate - Afr Amer 116 mL/min (>60); Estimated Creatinine Clearance 120.56 ml/min; Glucose 60 mg/dL (74-106); Potassium 3.8 mmol/L (3.5-5.1); Sodium Level 138 mmol/L (136-145)
[2023-07-02 11:50] LABS: Differential Comment SCANNED
[2023-07-02 12:46] LABS: Bacteria 0 SEEN /hpf (None Seen); Mucous, Urine 0 SEEN /hpf (<or=2+); Red Blood Cells-Urine 0 SEEN /hpf (0-5); Squamous Epithelial Cells - UA 0 SEEN /hpf (0-5)
[2023-07-02 12:48] LABS: Color, Urine Yellow (Yellow); Glucose, Dipstick Normal (Normal); Ketone-Dipstick Negative (Negative); Leukocyte Esterase-Dipstick 25 /ul (Negative); Nitrite-Dipstick Negative (Negative); Occult Blood-Urine Negative /ul (Negative); Protein-Dipstick Negative (Negative); Urine Bilirubin Dipstick Negative (Negative); Urine Clarity Clear (Clear); Urine Urobilinogen 4 mg/dl (Normal)
[2023-07-02 12:55] LABS: White Blood Cells 0-5 SEEN /hpf (0-5)
[2023-07-02 14:26] VITALS: BP 116/76
[2023-07-03 13:05] LABS: Pathologist Review Reviewed
== END 2023-07-02 14:28 | disposition home or self-care (01) ==
PROVIDERS: Emergency Provider Emergency Medicine; PCP Nurse Practitioner Family; Visit Provider Emergency Medicine
DX: J10.1 Influenza due to other identified influenza virus with other respiratory manifestations (principal); E11.9 Type 2 diabetes mellitus without complications; R50.9 Fever, unspecified; I10 Essential (primary) hypertension; E78.00 Pure hypercholesterolemia, unspecified; K21.9 Gastro-esophageal reflux disease without esophagitis; F41.9 Anxiety disorder, unspecified; J45.909 Unspecified asthma, uncomplicated; G47.00 Insomnia, unspecified; F43.10 Post-traumatic stress disorder, unspecified; Z79.899 Other long term (current) drug therapy; Z79.84 Long term (current) use of oral hypoglycemic drugs; F17.210 Nicotine dependence, cigarettes, uncomplicated
CPT/HCPCS: 71046; 80048; 81001; 82009; 85025; 87428; 96360; 96374; 99284; J7030; A4216; J2405

== ENCOUNTER 2023-07-05 11:15 | Emergency (ER) | payer OTHER, MEDICAID, SELFPAY ==
[2023-07-05 11:15] VITALS: BP 128/95; PULSE 79; RESP 24; TEMP 35.3; O2SAT 100
--- NOTE | 2023-07-05 11:52 | ED.VIS.DYS ---
HPI History of Present Illness Chief Complaint: Shortness of Breath Informant: patient Narrative Narrative: 53-year-old male history of diabetes presenting to the emergency room with a chief complaint of pneumonia. Patient states that on Saturday he became ill and he was diagnosed with influenza A on Saturday. He states that the fevers have subsided but he continues to have the rattle. He states that he was up all night coughing. He notes some sputum production. No diarrhea. He states that he figures this is most likely pneumonia. He has a history of asthma and is currently taking Symbicort. He states his Ventolin does nothing for him. Patient states that he has been drinking well and has normal urination. He feels hydrated. [facility] Medical History Acid reflux Anxiety Asthma Diabetes High cholesterol Hypertension Insomnia PTSD (post-traumatic stress disorder) Home Medications lisinopril 10 mg tablet 10 mg PO DAILY 06/14/14 [History Last Taken Unknown] glyburide 5 mg tablet 10 mg PO BID 06/30/20 [History Last Taken Unknown] venlafaxine 150 mg capsule,extended release 24 hr 150 mg PO DAILY 06/30/20 [History Last Taken Unknown] budesonide-formoterol HFA 160 mcg-4.5 mcg/actuation aerosol inhaler (Symbicort) 2 puff inhalation BID #10.2 grams 12/23/20 [Rx Last Taken Unknown] baclofen 20 mg tablet 20 mg PO TID 05/11/21 [History Last Taken Unknown] esomeprazole magnesium 20 mg capsule,delayed release (Nexium) 20 mg PO DAILY 05/11/21 [History Last Taken Unknown] gabapentin 300 mg tablet 300 mg PO TID 05/11/21 [History Last Taken Unknown] pioglitazone 45 mg tablet (Actos) 45 mg PO DAILY 05/11/21 [History Last Taken Unknown] doxycycline monohydrate 100 mg capsule 100 mg PO BID #20 caps 07/24/21 [Rx Last Taken Unknown] acetaminophen 500 mg tablet (Tylenol Extra Strength) 1,000 mg (2 x 500 mg) PO Q6H PRN pain #60 tabs 09/21/22 [Rx Last Taken Unknown] cyclobenzaprine 10 mg tablet 10 mg PO TID PRN Muscle Spasm #20 TABLETS 09/21/22 [Rx Last Taken Unknown] albuterol sulfate 90 mcg/actuation aerosol inhaler (Ventolin HFA) 1 - 2 puff inhalation Q4H PRN PRN Wheezing ##1 10/11/22 [Rx Last Taken Unknown] azithromycin 250 mg tablet 250 mg PO DAILY #6 TABLETS 10/11/22 [Rx Last Taken Unknown] furosemide 20 mg tablet 20 mg PO DAILY #14 tabs 12/27/22 [Rx Last Taken Unknown] potassium chloride 20 mEq tablet,extended release 20 meq PO BID #28 tabs 12/27/22 [Rx Last Taken Unknown] doxycycline monohydrate 100 mg capsule 100 mg PO BID #10 CAPSULES 02/05/23 [Rx Last Taken Unknown] gabapentin 800 mg tablet 800 mg PO DAILY #14 tabs 02/05/23 [Rx Last Taken Unknown] prednisone 20 mg tablet 60 mg (3 x 20 mg) PO DAILY #15 TABLETS 07/05/23 [Rx Last Taken Unknown] Allergy/AdvReac Type Severity Reaction Status Date / Time benzonatate Allergy Hives Verified 02/15/23 20:10 [From Tessalon Perles] cefuroxime axetil Allergy Hives Verified 02/15/23 20:10 [From Ceftin] cephalexin monohydrate Allergy Hives Verified 02/15/23 20:10 [From Keflex] sulfamethoxazole Allergy Itching Verified 02/15/23 20:10 [From Bactrim] trimethoprim [From Bactrim] Allergy Itching Verified 02/15/23 20:10 Surgical History History of back surgery History of facial surgery Hx of foot surgery Social History Smoking Status: Never smoker ROS ROS ED Constitutional Constitutional ED: Reports chills and fever(s); Denies weight loss Eyes Eyes: Denies change in vision or diplopia ENT ENT ED: Reports rhinorrhea; Denies ear pain or sore throat Cardiovascular Cardiovascular: Denies chest pain, orthopnea, palpitations or racing heartbeat Respiratory/Chest Respiratory/Chest: Reports cough, dyspnea and dyspnea on exertion; Denies orthopnea Gastrointestinal Gastrointestinal: Denies abdominal pain, diarrhea, nausea or vomiting Genitourinary Genitourinary ED: Denies dysuria, hematuria or urinary frequency Musculoskeletal Musculoskeletal: Reports myalgias; Denies arthralgias Integumentary Denies abscess or rash Neurologic Neurologic: Reports headache(s); Denies weakness Psychiatric Psychiatric: Denies anxiety, depression, suicidal ideation or suicidal thoughts Endocrine Endocrinology: Denies polydipsia, polyphagia or polyuria Allergic/Immunologic Allergic/Immunologic ED: Denies mouth swelling, tongue swelling or urticaria EXAM Physical Exam Const Vital Signs: 07/05/23 11:15 07/05/23 11:58 07/05/23 12:07 Temperature 95.6 F L Temperature Source Temporal Pulse Rate 79 67 Respiratory Rate 24 H 16 Respiratory Effort Short of Breath Respiratory Depth Normal Respiratory Pattern Normal Normal Blood Pressure 128/95 H Blood Pressure Mean 106 Pulse Ox 100 Oxygen Delivery Method Room Air Room Air Positive well nourished and well developed General Appearance ED: well developed HEENT Reports normocephalic, head/scalp atraumatic and moist mucous membranes Eyes PERRL and EOMs intact bilaterally Neck no lymphadenopathy, supple and no JVD Resp normal respiratory effort Resp Narrative: Bilateral rhonchi that improved with cough. Slight expiratory wheeze most prominent on right. Cardio regular rate, regular rhythm and no murmurs GI normal to inspection, nondistended, normoactive bowel sounds and non-tender Palpation: soft Back/Spine no CVA tenderness and normal ROM Extremity normal to inspection General Extremety ED: Negative for edema General Extremity: Negative for edema Neuro oriented x3 and CN's II-XII intact bilaterally Sensorium / Orientation: alert Motor Exam: strength 5/5 throughout Psych mental status grossly normal Mood & Affect: Negative for depressed or tearful Skin no rashes or lesions noted and no wounds MDM MDM MDM Narrative Medical decision making narrative: Patient's influenza test was reviewed and is positive for influenza A. My independent interpretation of the chest x-ray is no definitive infiltrate/consolidation. No obvious pleural effusion. He received a DuoNeb. I did recommend continued use of albuterol at home and his Symbicort. Think it is reasonable with his history of asthma on the rhonchorous lung sounds and slight expiratory wheeze to place him on some burst prednisone x 5 days Patient should continue to hydrate. Radiography Diagnostic Testing: Clinical Impression(s) from Imaging Studies Chest X-Ray 07/05/23 12:05 IMPRESSION: Normal x-ray examination of the chest. Electronically Signed: Anuj Goldman MD at 12:24 EST , Discharge Plan Triage Chief Complaint: Shortness of Breath ED Provider: Diego Paz Dx/Rx/DC Orders Clinical Impression: Influenza A, Acute asthmatic bronchitis Instructions: ED Bronchitis, No Antibiotic (Adult), ED Influenza (Adult) Prescriptions: New prednisone 20 mg tablet 60 mg PO DAILY Qty: 15 0RF No Action lisinopril 10 MG tablet 10 mg PO DAILY glyburide 5 MG tablet 10 mg PO BID Patient Comments: TAKE 2 TABLETS BY MOUTH TWICE DAILY venlafaxine 150 MG capsule 150 mg PO DAILY Patient Comments: TAKE 1 CAPSULE BY MOUTH ONCE DAILY budesonide-formoterol [Symbicort] 160-4.5 mcg/actuation HFA aerosol inhaler 2 puff inhalation BID Qty: 10.2 0RF pioglitazone [Actos] 45 mg Tablet 45 mg PO DAILY baclofen 20 mg Tablet 20 mg PO TID esomeprazole magnesium [Nexium] 20 mg Capsule,Delayed Release(Dr/Ec) 20 mg PO DAILY gabapentin 300 mg Tablet 300 mg PO TID doxycycline monohydrate 100 MG capsule 100 mg PO BID Qty: 20 0RF cyclobenzaprine [cyclobenzaprine] 10 mg tablet 10 mg PO TID PRN (Reason: Muscle Spasm) Qty: 20 0RF acetaminophen [Tylenol Extra Strength] 500 mg tablet 1,000 mg PO Q6H PRN (Reason: pain) Qty: 60 0RF azithromycin [azithromycin] 250 mg tablet 250 mg PO DAILY Qty: 6 0RF Rx Instructions: double dose on day #1 albuterol sulfate [Ventolin HFA] 90 mcg/actuation HFA aerosol inhaler 1 - 2 puff inhalation Q4H PRN PRN (Reason: Wheezing) Qty: 1 0RF furosemide 20 mg tablet 20 mg PO DAILY Qty: 14 0RF potassium chloride 20 mEq tablet extended release 20 meq PO BID Qty: 28 0RF gabapentin 800 mg tablet 800 mg PO DAILY Qty: 14 0RF doxycycline monohydrate 100 mg capsule 100 mg PO BID Qty: 10 0RF Primary Care Provider: Tatyana Sawyer NP Referrals: Silverio,Tatyana CHIPPER FEEDER, CHIPPER FEEDER-C [Primary Care Provider] - 1 Week if not improving Disposition Disposition: Home, Self Care
[2023-07-05] MEDS: Ipratropium/Albuterol Sulfate 3 ML AMPUL.NEB INHALATION (11:57)
[2023-07-05 11:58] VITALS: PULSE 67; RESP 16
--- NOTE | 2023-07-05 12:05 | RAD_ITS ---
STUDY: X-RAY CHEST REASON FOR EXAM: Male, 53 years old. Influenza A cough TECHNIQUE: Single AP portable view of the chest. COMPARISON: Comparison is made with prior study dated July 02, 2023. FINDINGS: The lungs are clear and expanded. There is no demonstrated pleural abnormality. Normal size heart. Normal mediastinum and kim. Normal visualized pulmonary arteries. Normal visualized aortic arch and descending thoracic aorta. Normal visualized thoracic spine. Normal visualized ribs, clavicles, and shoulders. There is no demonstrated abnormality of the visualized soft tissue structures of the upper abdomen. RAD/Chest 1 View (Portable) IMPRESSION: Normal x-ray examination of the chest. Electronically Signed: Anuj Goldman MD at 12:24 [facility] ,
[2023-07-05 12:07] VITALS: O2SAT 95
== END 2023-07-05 12:51 | disposition home or self-care (01) ==
PROVIDERS: Emergency Provider Emergency Medicine; PCP Nurse Practitioner Family; Visit Provider Emergency Medicine
DX: J10.1 Influenza due to other identified influenza virus with other respiratory manifestations (principal); E11.9 Type 2 diabetes mellitus without complications; E78.00 Pure hypercholesterolemia, unspecified; J45.909 Unspecified asthma, uncomplicated; I10 Essential (primary) hypertension
CPT/HCPCS: 71045; 94640; 99282

== ENCOUNTER 2023-09-22 08:16 | Emergency (ER) | payer MEDICAID, SELFPAY ==
[2023-09-22 08:18] VITALS: BP 156/93; PULSE 73; RESP 18; TEMP 36.3; O2SAT 99; BMI 30.7
--- NOTE | 2023-09-22 08:28 | EDS_ITS ---
HPI HPI - GI History of Present Illness Chief Complaint: Nausea/Vomiting Informant: patient Abdominal Pain/Flank Pain Onset: Days (6) Context: Gradual Onset Timing: Continuous Quality: Aching Location: LUQ Current Severity: Moderate Maximum Severity: Moderate Worsened by: - (Vomiting) Relieved by: Nothing Nausea/Vomiting/Emesis GI Symptom: Positive for Nausea and Vomiting Onset: Days (6) Quality: Positive for Nonbilious and Blood streaks Severity: Moderate (Several bouts per day or whenever he tries to eat or drink liquids) Diarrhea/Melena/Hematochezia GI Symptom: Positive for Diarrhea; Negative for Melena or Hematochezia Onset: Days (6) Stool Quality: Positive for Watery (Clear no blood or melena) Severity: Moderate (3-4/day on average) Associated Symptoms Associated Symptoms: Negative for Dysuria, Frequency or Hematuria Narrative Narrative: 53-year-old male feeling poorly after having about 6 days worth of vomiting, diarrhea, left-sided abdominal pain mostly left upper quadrant. No fevers or chills that he knows of. No known sick contacts. No travel out of the area recently. Denies any suspicious food intake such as raw seafood or undercooked meats. He is a diabetic, he is not on insulin but he has not been able to take any of his pills for about 3 days now, due to not being able to keep anything down. He has not checked his sugars, he states he does not have a meter but he does not need one because I just keep my blood sugars at around 100 with my diet. Denies any history of abdominal surgeries. He states he has not had any alcohol in the last 3 months and does not take any drugs. [facility] Medical History Acid reflux Anxiety Asthma Diabetes High cholesterol Hypertension Insomnia PTSD (post-traumatic stress disorder) Home Medications lisinopril 10 mg tablet 10 mg PO DAILY 06/14/14 [History Last Taken Unknown] glyburide 5 mg tablet 10 mg PO BID 06/30/20 [History Last Taken Unknown] venlafaxine 150 mg capsule,extended release 24 hr 150 mg PO DAILY 06/30/20 [History Last Taken Unknown] budesonide-formoterol HFA 160 mcg-4.5 mcg/actuation aerosol inhaler (Symbicort) 2 puff inhalation BID #10.2 grams 12/23/20 [Rx Last Taken Unknown] baclofen 20 mg tablet 20 mg PO TID 05/11/21 [History Last Taken Unknown] esomeprazole magnesium 20 mg capsule,delayed release (Nexium) 20 mg PO DAILY 05/11/21 [History Last Taken Unknown] gabapentin 300 mg tablet 300 mg PO TID 05/11/21 [History Last Taken Unknown] pioglitazone 45 mg tablet (Actos) 45 mg PO DAILY 05/11/21 [History Last Taken U nknown] doxycycline monohydrate 100 mg capsule 100 mg PO BID #20 caps 07/24/21 [Rx Last Taken Unknown] acetaminophen 500 mg tablet (Tylenol Extra Strength) 1,000 mg (2 x 500 mg) PO Q6H PRN pain #60 tabs 09/21/22 [Rx Last Taken Unknown] cyclobenzaprine 10 mg tablet 10 mg PO TID PRN Muscle Spasm #20 TABLETS 09/21/22 [Rx Last Taken Unknown] albuterol sulfate 90 mcg/actuation aerosol inhaler (Ventolin HFA) 1 - 2 puff inhalation Q4H PRN PRN Wheezing ##1 10/11/22 [Rx Last Taken Unknown] azithromycin 250 mg tablet 250 mg PO DAILY #6 TABLETS 10/11/22 [Rx Last Taken Unknown] furosemide 20 mg tablet 20 mg PO DAILY #14 tabs 12/27/22 [Rx Last Taken Unknown] potassium chloride 20 mEq tablet,extended release 20 meq PO BID #28 tabs 12/27/22 [Rx Last Taken Unknown] doxycycline monohydrate 100 mg capsule 100 mg PO BID #10 CAPSULES 02/05/23 [Rx Last Taken Unknown] gabapentin 800 mg tablet 800 mg PO DAILY #14 tabs 02/05/23 [Rx Last Taken Unknown] prednisone 20 mg tablet 60 mg (3 x 20 mg) PO DAILY #15 TABLETS 07/05/23 [Rx Last Taken Unknown] ondansetron 4 mg disintegrating tablet 8 mg (2 x 4 mg) PO Q8H PRN PRN Nausea #20 tabs 09/22/23 [Rx Last Taken Unknown] Allergy/AdvReac Type Severity Reaction Status Date / Time benzonatate Allergy Hives Verified 09/22/23 08:21 [From Tesodilon Henry] cefuroxime axetil Allergy Hives Verified 09/22/23 08:21 [From Ceftin] cephalexin monohydrate Allergy Hives Verified 09/22/23 08:21 [From Keflex] sulfamethoxazole Allergy Itching Verified 09/22/23 08:21 [From Bactrim] trimethoprim [From Bactrim] Allergy Itching Verified 09/22/23 08:21 Surgical History History of back surgery History of facial surgery Hx of foot surgery Social History Smoking Status: Current every day smoker tobacco type: e-cigarettes ROS ROS ED Constitutional Constitutional ED: Reports malaise; Denies chills or fever(s) Eyes Eyes: Denies change in vision or diplopia ENT ENT ED: Denies rhinorrhea or sore throat Cardiovascular Cardiovascular: Denies chest pain or palpitations Respiratory/Chest Respiratory/Chest: Denies cough or dyspnea Gastrointestinal Gastrointestinal: Reports abdominal pain, diarrhea, nausea and vomiting; Denies melena Genitourinary Genitourinary ED: Denies dysuria or hematuria Musculoskeletal Musculoskeletal: Denies back pain or neck pain Integumentary Denies abscess or rash Neurologic Neurologic: Denies headache(s), paresthesias or weakness Psychiatric Psychiatric: Denies anxiety or suicidal thoughts EXAM Physical Exam Const Vital Signs: 09/22/23 08:18 09/22/23 10:26 Temperature 97.4 F L Temperature Source Temporal Pulse Rate 73 70 Respiratory Rate 18 16 Blood Pressure 156/93 H 153/81 H Blood Pressure Mean 114 105 Pulse Ox 99 98 Oxygen Delivery Method Room Air Room Air Positive well nourished and well developed General Appearance ED: well developed and NAD HEENT Reports moist mucous membranes normocephalic and atraumatic Eyes PERRL and EOMs intact bilaterally Neck full ROM and supple Resp normal respiratory effort and clear to auscultation bilaterally Cardio regular rate, regular rhythm and no murmurs Rate: Negative for tachycardic GI non-distended GI Narrative: Tender epigastrium, left upper quadrant, left lower quadrant. No guarding or rebound tenderness. No pulsatile mass. Normal on inspection. No gross distention. Bowel sounds are present. Auscultation: normoactive bowel sounds Palpation: soft Back/Spine no CVA tenderness General Back: other FROM Extremity normal to inspection General Extremety ED: Negative for edema, pulses abnormal or tenderness General Extremity: Negative for edema or pulses abnormal Neuro oriented x3, CN's II-XII intact bilaterally and no sensory deficits noted Sensorium / Orientation: awake and alert Motor Exam: strength 5/5 throughout Skin no rashes or lesions noted and no wounds MDM MDM MDM Narrative Medical decision making narrative: Differential here includes infectious gastroenteritis, noninfectious gastroenteritis, alcoholic gastritis although he states he has not drank in 3 months, infectious and noninfectious gastritis from other etiologies and alcohol, diverticulitis, kidney stone. Given his labs and urinalysis and CT of the abdomen/pelvis were obtained, initially the CT was meant to be done with IV contrast however the patient was a very difficult stick and we were only able to get a very peripheral small caliber IV catheter in him in order to provide fluids and medications, so in order to keep this from blowing I opted to do the CT without contrast. I reviewed the images and the report which I agree with, it is essentially negative/normal. His potassium is a little low consistent with GI losses. His urine does not show signs of significant blood or infection. He does not have a significant white blood count. All of this is consistent with either irritant gastritis for which he is already on Nexium, or viral gastroenteritis which is a high prevalence in the area right now. He is feeling a lot better after treatment. Will give him a prescription for antiemetic, and discharged him home with appropriate discharge instructions and follow-up. Lab Data Attestation: I reviewed the patient's lab results. Labs: Laboratory Results - last 24 hr 09/22/23 09/22/23 09/22/23 08:40 09:28 10:01 WBC 6.6 RBC 4.52 L Hgb 13.5 Hct 41.0 MCV 90.7 MCH 29.9 MCHC 32.9 RDW Std Deviation 43.5 RDW Coeff of Hai 13.1 Plt Count 236 MPV 9.1 Immature Gran % (Auto) 0.200 Neut % (Auto) 60.1 Lymph % (Auto) 25.6 Bracken % (Auto) 10.6 H Eos % (Auto) 3.0 Baso % (Auto) 0.5 Absolute Neuts (auto) 4.0 Absolute Lymphs (auto) 1.69 Nucleated RBC % 0 Sodium Cancelled 142 Potassium Cancelled 3.0 L Chloride Cancelled 110 H Carbon Dioxide Cancelled 26.0 Anion Gap Cancelled 6 BUN Cancelled 8 Creatinine Cancelled 0.78 Estim Creat Clear Calc Cancelled 150.96 Est GFR (MDRD) Af Amer Cancelled 134 Est GFR (MDRD) Non-Af Cancelled 111 BUN/Creatinine Ratio Cancelled 10.2 Glucose Cancelled 152 H Calcium Cancelled 8.6 Total Bilirubin Cancelled 0.40 AST Cancelled 17 ALT Cancelled 25 Alkaline Phosphatase Cancelled 100 Total Protein Cancelled 6.6 Albumin Cancelled 3.3 Globulin Cancelled 3.3 Albumin/Globulin Ratio Cancelled 1.0 Lipase Cancelled 44 Urine Color Yellow Urine Clarity Clear Urine pH 5.0 Ur Specific Clarence 1.020 Urine Protein 15 H Urine Glucose (UA) Normal Urine Ketones 5 H Urine Occult Blood Negative Urine Nitrite Negative Urine Bilirubin 1 H Urine Urobilinogen 1 H Ur Leukocyte Esterase 25 H Urine RBC 0 SEEN Urine WBC 0 SEEN Ur Squamous Epith Cells 0 SEEN Urine Bacteria 0 SEEN Urine Mucus 0 SEEN Radiography Diagnostic Testing: Clinical Impression(s) from Imaging Studies Abdomen/Pelvis CT 09/22/23 09:14 IMPRESSION: No acute abnormality in the abdomen and pelvis. Electronically Signed: Jovany Yo MD at 10:00 EDT , Discharge Plan Triage Chief Complaint: Nausea/Vomiting ED Provider: Randy Desai Dx/Rx/DC Orders Clinical Impression: Gastroenteritis, Left sided abdominal pain, Hypokalemia due to excessive gastrointestinal loss of potassium Instructions: Viral Gastroenteritis Prescriptions: New ondansetron [ondansetron] 4 mg tablet,disintegrating 8 mg PO Q8H PRN PRN (Reason: Nausea) Qty: 20 0RF No Action lisinopril 10 MG tablet 10 mg PO DAILY glyburide 5 MG tablet 10 mg PO BID Patient Comments: TAKE 2 TABLETS BY MOUTH TWICE DAILY venlafaxine 150 MG capsule 150 mg PO DAILY Patient Comments: TAKE 1 CAPSULE BY MOUTH ONCE DAILY budesonide-formoterol [Symbicort] 160-4.5 mcg/actuation HFA aerosol inhaler 2 puff inhalation BID Qty: 10.2 0RF pioglitazone [Actos] 45 mg Tablet 45 mg PO DAILY baclofen 20 mg Tablet 20 mg PO TID esomeprazole magnesium [Nexium] 20 mg Capsule,Delayed Release(Dr/Ec) 20 mg PO DAILY gabapentin 300 mg Tablet 300 mg PO TID doxycycline monohydrate 100 MG capsule 100 mg PO BID Qty: 20 0RF cyclobenzaprine [cyclobenzaprine] 10 mg tablet 10 mg PO TID PRN (Reason: Muscle Spasm) Qty: 20 0RF acetaminophen [Tylenol Extra Strength] 500 mg tablet 1,000 mg PO Q6H PRN (Reason: pain) Qty: 60 0RF azithromycin [azithromycin] 250 mg tablet 250 mg PO DAILY Qty: 6 0RF Rx Instructions: double dose on day #1 albuterol sulfate [Ventolin HFA] 90 mcg/actuation HFA aerosol inhaler 1 - 2 puff inhalation Q4H PRN PRN (Reason: Wheezing) Qty: 1 0RF furosemide 20 mg tablet 20 mg PO DAILY Qty: 14 0RF potassium chloride 20 mEq tablet extended release 20 meq PO BID Qty: 28 0RF gabapentin 800 mg tablet 800 mg PO DAILY Qty: 14 0RF doxycycline monohydrate 100 mg capsule 100 mg PO BID Qty: 10 0RF prednisone 20 mg tablet 60 mg PO DAILY Qty: 15 0RF Primary Care Provider: [facility] Nela Fonseca Referrals: [facility] Nela Fonseca [Primary Care Provider] - 3-5 Days if not improving Disposition Disposition: Home, Self Care
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
[2023-09-22] MEDS: Ondansetron 4 MG/2 ML Vial IV (08:41)
[2023-09-22] MEDS: Morphine 4 MG/ML Syringe IV (08:41)
[2023-09-22] MEDS: 0.9% Normal Saline (1000mL) 1,000 ML 1000 ML IV (08:42)
[2023-09-22 08:45] LABS: Absolute Lymphocyte Count 1.69 X10^3/uL (0.83-4.51); Basophil# 0.03 X10^3/uL; Basophil% 0.5 % (0-1); Hemoglobin 13.5 g/dL (13.0-16.5); Lymphocyte # 1.69 X10^3/ul (0.83-4.51); Lymphocyte % 25.6 % (19-41); Mean Corp Hgb Conc 32.9 g/dL (32-36); Mean Corpuscular Hgb 29.9 pg (27.0-32.0); Mean Corpuscular Volume 90.7 fL (80-94); Mean Platelet Vol. 9.1 fl (6.2-12.0); Monocyte% 10.6 % (0-10); NRBC Flagged by Analyzer 0 % (0-5); Neutrophil # 3.98 X10^3/uL (2.7-7.7); Neutrophil % 60.1 % (47-70); Platelet Count 236 K/mm3 (150-450); RBC Distribution Width CV 13.1 % (11.6-14.6); RBC Distribution Width SD 43.5 fl (35.1-43.9); Red Blood Count 4.52 M/mm3 (4.6-6.2); White Blood Count 6.6 K/mm3 (4.4-11.0)
--- NOTE | 2023-09-22 09:14 | CT_ITS ---
EXAM: CT ABDOMEN AND PELVIS WITHOUT INTRAVENOUS CONTRAST CLINICAL INDICATION: Left-sided abdominal pain with nausea and vomiting. TECHNIQUE: Helically acquired images were obtained of the abdomen and pelvis without intravenous contrast. This CT exam was performed using one or more of the following dose reduction techniques: automated exposure control, adjustment of the mA and/or kV according to patient size, and/or use of iterative reconstruction technique. RADIATION DOSE: CTDIvol = 19.71 mGy, DLP = 1122.52 mGy-cm COMPARISON: No relevant prior studies available. FINDINGS: LOWER THORAX: Unremarkable. Lung bases are clear. No cardiomegaly. No significant pericardial effusion. ABDOMEN: LIVER: Unremarkable. Homogeneous. GALLBLADDER AND BILE DUCTS: Unremarkable. No calcified gallstones. No gallbladder distention or wall edema. No intra- or extrahepatic biliary ductal dilation. PANCREAS: Unremarkable. No focal cystic mass. SPLEEN: Unremarkable. Normal size without focal cystic or solid mass. ADRENALS: Unremarkable. No nodules. KIDNEYS AND URETERS: Unremarkable. Normal renal size and position. No hydronephrosis. STOMACH AND BOWEL: Unremarkable. No stomach or bowel distention. No focal inflammatory change. PELVIS: APPENDIX: Normal. BLADDER: Unremarkable. REPRODUCTIVE: Unremarkable as visualized. No mass. ABDOMEN and PELVIS: INTRAPERITONEAL SPACE: Unremarkable. No ascites or other fluid collection. No free air. BONES/JOINTS: Pronounced degenerative disc space height narrowing with degenerative vacuum phenomenon and endplate sclerosis at the L4-L5 disc space level. Normal vertebral body heights and alignment. Normal remaining lumbar disc space heights and the included lower thoracic spine. No lytic or blastic lesions. SOFT TISSUES: Unremarkable. No discrete abdominal or pelvic wall hernia. VASCULATURE: Unremarkable. Abdominal aorta is non-dilated. LYMPH NODES: Unremarkable. No enlarged lymph nodes. CT/Abdomen/Pelvis without Cont IMPRESSION: No acute abnormality in the abdomen and pelvis. Electronically Signed: Jovany Yo MD at 10:00 EDT ,
[2023-09-22 09:51] LABS: AST(SGOT) 17 U/L (15-37); Alanine Aminotransfer ALT/SGPT 25 U/L (16-61); Albumin, Serum 3.3 g/dL (3.2-5.0); Alkaline Phosphatase 100 U/L (45-117); Anion Gap 6 (5-15); BUN 8 mg/dL (7-18); BUN/Creat Ratio 10.2 RATIO (10-20); Calcium,Total 8.6 mg/dL (8.5-10.1); Chloride 110 mmol/L (98-107); Creatinine, Serum 0.78 mg/dL (0.70-1.30); EST Glomerular Filtration Rate 111 mL/min (>60); Est Glom Filt Rate - Afr Amer 134 mL/min (>60); Estimated Creatinine Clearance 150.96 ml/min; Globulin 3.3 g/dL (2.2-4.2); Glucose 152 mg/dL (74-106); Lipase 44 U/L (13-75); Protein, Total 6.6 g/dL (6.4-8.2); Sodium Level 142 mmol/L (136-145)
[2023-09-22 10:05] LABS: Bacteria 0 SEEN /hpf (None Seen); Color, Urine Yellow (Yellow); Glucose, Dipstick Normal (Normal); Ketone-Dipstick 5 mg/dl (Negative); Leukocyte Esterase-Dipstick 25 /ul (Negative); Mucous, Urine 0 SEEN /hpf (<or=2+); Nitrite-Dipstick Negative (Negative); Occult Blood-Urine Negative /ul (Negative); Protein-Dipstick 15 mg/dl (Negative); Red Blood Cells-Urine 0 SEEN /hpf (0-5); Squamous Epithelial Cells - UA 0 SEEN /hpf (0-5); Urine Clarity Clear (Clear); Urine Urobilinogen 1 mg/dl (Normal); White Blood Cells 0 SEEN /hpf (0-5)
[2023-09-22 10:07] LABS: Urine Bilirubin Dipstick 1 mg/dL (Negative)
[2023-09-22] MEDS: Potassium Chloride Oral Tablet 20 MEQ 40 MEQ PO (10:24)
[2023-09-22 10:26] VITALS: BP 153/81; PULSE 70; RESP 16; O2SAT 98
[2023-09-22 11:04] VITALS: BP 165/93; PULSE 74; RESP 16; TEMP 36.6; O2SAT 98
== END 2023-09-22 11:05 | disposition home or self-care (01) ==
PROVIDERS: Emergency Provider Emergency Medicine; Visit Provider Emergency Medicine
DX: K52.9 Noninfective gastroenteritis and colitis, unspecified (principal); E11.9 Type 2 diabetes mellitus without complications; E87.6 Hypokalemia; E78.00 Pure hypercholesterolemia, unspecified; I10 Essential (primary) hypertension; Z79.899 Other long term (current) drug therapy; Z79.84 Long term (current) use of oral hypoglycemic drugs; F41.9 Anxiety disorder, unspecified; J45.909 Unspecified asthma, uncomplicated; Z79.51 Long term (current) use of inhaled steroids; F17.290 Nicotine dependence, other tobacco product, uncomplicated; R10.9 Unspecified abdominal pain
CPT/HCPCS: 36415; 74176; 80053; 81001; 83690; 85025; 96361; 96374; 96375; 99282; A4216; J2405

== ENCOUNTER 2023-09-23 08:07 | Emergency (ER) | payer MEDICAID, SELFPAY ==
[2023-09-23 08:08] VITALS: BP 133/83; PULSE 85; RESP 18; TEMP 36.4; O2SAT 99; BMI 30.6
--- NOTE | 2023-09-23 09:03 | EX.ED.DYSGE1 ---
HPI History of Present Illness Chief Complaint: Nausea/Vomiting/Diarrhea Informant: patient Narrative Narrative: Patient 53-year-old male with history of hypertension and non-insulin diabetes mellitus presenting with continued nausea, vomiting and diarrhea. Patient was seen and evaluated our emergency room yesterday for the same symptoms. Patient states that he has the stomach bug that is going around. Notes his symptoms are going on for a week now. I currently denies any abdominal pain but states he still having bowel movements every 30 minutes. He states he laid down to get comfortable and have to get up to use the bathroom again. He was prescribed Zofran but did not have a ride and could not get it filled yesterday. Denies any fever. Denies any black or blood in his vomit or stool. Is concerned about dehydration. Denies any chest pain and does report darker urine. No other complaints or concerns at this time. Chart review of the patient's ER visit from yesterday (09/22/2023) approximate 24 hours ago reported 6 days of vomiting, diarrhea and less abdominal pain mostly left upper quadrant. Vital signs normal. CBC, CMP and urinalysis obtained. CMP showed mild elevation of his glucose at 152, mild hypokalemia potassium 3.0 and normal bicarb as well as liver enzymes. CT of his abdomen and pelvis showed no acute pathology. Patient was diagnosed gastroenteritis and discharged home with a prescription for Zofran. Patient appears to already be on potassium supplements. [facility] Medical History Acid reflux Anxiety Asthma Diabetes High cholesterol Hypertension Insomnia PTSD (post-traumatic stress disorder) Home Medications lisinopril 10 mg tablet 10 mg PO DAILY 06/14/14 [History Last Taken Unknown] glyburide 5 mg tablet 10 mg PO BID 06/30/20 [History Last Taken Unknown] venlafaxine 150 mg capsule,extended release 24 hr 150 mg PO DAILY 06/30/20 [History Last Taken Unknown] budesonide-formoterol HFA 160 mcg-4.5 mcg/actuation aerosol inhaler (Symbicort) 2 puff inhalation BID #10.2 grams 12/23/20 [Rx Last Taken Unknown] baclofen 20 mg tablet 20 mg PO TID 05/11/21 [History Last Taken Unknown] esomeprazole magnesium 20 mg capsule,delayed release (Nexium) 20 mg PO DAILY 05/11/21 [History Last Taken Unknown] gabapentin 300 mg tablet 300 mg PO TID 05/11/21 [History Last Taken Unknown] pioglitazone 45 mg tablet (Actos) 45 mg PO DAILY 05/11/21 [History Last Taken Unknown] doxycycline monohydrate 100 mg capsule 100 mg PO BID #20 caps 07/24/21 [Rx Last Taken Unknown] acetaminophen 500 mg tablet (Tylenol Extra Strength) 1,000 mg (2 x 500 mg) PO Q6H PRN pain #60 tabs 09/21/22 [Rx Last Taken Unknown] cyclobenzaprine 10 mg tablet 10 mg PO TID PRN Muscle Spasm #20 TABLETS 09/21/22 [Rx Last Taken Unknown] albuterol sulfate 90 mcg/actuation aerosol inhaler (Ventolin HFA) 1 - 2 puff inhalation Q4H PRN PRN Wheezing ##1 10/11/22 [Rx Last Taken Unknown] azithromycin 250 mg tablet 250 mg PO DAILY #6 TABLETS 10/11/22 [Rx Last Taken Unknown] furosemide 20 mg tablet 20 mg PO DAILY #14 tabs 12/27/22 [Rx Last Taken Unknown] potassium chloride 20 mEq tablet,extended release 20 meq PO BID #28 tabs 12/27/22 [Rx Last Taken Unknown] doxycycline monohydrate 100 mg capsule 100 mg PO BID #10 CAPSULES 02/05/23 [Rx Last Taken Unknown] gabapentin 800 mg tablet 800 mg PO DAILY #14 tabs 02/05/23 [Rx Last Taken Unknown] prednisone 20 mg tablet 60 mg (3 x 20 mg) PO DAILY #15 TABLETS 07/05/23 [Rx Last Taken Unknown] ondansetron 4 mg disintegrating tablet 8 mg (2 x 4 mg) PO Q8H PRN PRN Nausea #20 tabs 09/22/23 [Rx Last Taken Unknown] loperamide 2 mg capsule (Imodium A-D) 2 mg PO Q6H PRN loose stool #10 caps 09/23/23 [Rx Last Taken Unknown] Allergy/AdvReac Type Severity Reaction Status Date / Time benzonatate Allergy Hives Verified 09/23/23 08:08 [From Tessalon Perles] cefuroxime axetil Allergy Hives Verified 09/23/23 08:08 [From Ceftin] cephalexin monohydrate Allergy Hives Verified 09/23/23 08:08 [From Keflex] sulfamethoxazole Allergy Itching Verified 09/23/23 08:08 [From Bactrim] trimethoprim [From Bactrim] Allergy Itching Verified 09/23/23 08:08 Surgical History History of back surgery History of facial surgery Hx of foot surgery Social History Smoking Status: Current every day smoker tobacco type: e-cigarettes ROS ROS ED Constitutional Constitutional ED: Denies chills or fever(s) Cardiovascular Cardiovascular: Denies chest pain Respiratory/Chest Respiratory/Chest: Denies cough Gastrointestinal Gastrointestinal: Reports diarrhea, nausea and vomiting; Denies abdominal pain Genitourinary Genitourinary ED: Denies dysuria or urinary frequency Musculoskeletal Musculoskeletal: Denies arthralgias or myalgias Integumentary Denies rash Neurologic Neurologic: Denies headache(s) EXAM Physical Exam Const Vital Signs: 09/23/23 08:08 09/23/23 11:43 Temperature 97.6 F L 96.9 F L Temperature Source Temporal Pulse Rate 85 79 Respiratory Rate 18 16 Blood Pressure 133/83 H 127/81 H Blood Pressure Mean 99 96 Pulse Ox 99 98 Oxygen Delivery Method Room Air Positive well nourished and well developed General Appearance ED: well developed and NAD; Negative for pallor HEENT Reports moist mucous membranes Eyes PERRL and EOMs intact bilaterally Neck supple Chest Wall inspection of chest normal and palpation of chest normal Resp normal respiratory effort and clear to auscultation bilaterally Cardio regular rate, regular rhythm and no murmurs GI normal to inspection, nondistended, normoactive bowel sounds GI Narrative: Very mild tenderness palpation epigastric/right upper quadrant. Negative Denton sign Palpation: soft Extremity normal to inspection Neuro oriented x3 Sensorium / Orientation: alert Motor Exam: Negative for general weakness Psych mental status grossly normal Skin no rashes or lesions noted and no wounds General Skin Exam: Negative for jaundice or pallor MDM MDM MDM Narrative Medical decision making narrative: Patient is evaluated for continued diarrhea and GI symptoms in the setting of recent diagnosis of gastroenteritis. I will recheck labs and give further IV fluid and Zofran. Abdomen is soft and his lungs are no significant laboratory abnormalities compared to yesterday do not think repeat imaging is indicated he had CT of his abdomen pelvis yesterday. Will obtain stool studies if possible. Lab work largely unremarkable. No acute change in yesterday. Potassium still mildly low but improved (now 3.2). Will be given an additional dose of oral potassium in the ER. Stool study negative for white blood cell lactoferrin and C. difficile. Further stool studies are still pending. Will start on Imodium for his diarrhea and counseled this is still self-limiting at this point. He does not report any blood in his stool does not any fever or severe symptoms requiring antibiotics at this time. Counseled on conservative treatment. Verbalized agreement understand with this plan. Discharged in stable condition. Encouraged to slate picker his prescription for Zofran and take medications prescribed to help with his symptoms. Is able to tolerate p.o. in the emergency room. Patient's stool study results positive for norovirus which is consistent with his presentation. I would not change plan of care. History & Record Review Additional record(s) reviewed:: Prior ED visit Lab Data Attestation: I reviewed the patient's lab results. Labs: Laboratory Results - last 24 hr 09/23/23 09:00 WBC 6.4 RBC 4.24 L Hgb 12.3 L Hct 38.7 L MCV 91.3 MCH 29.0 MCHC 31.8 L RDW Std Deviation 43.7 RDW Coeff of Hai 13.1 Plt Count 237 MPV 9.6 Immature Gran % (Auto) 0.200 Neut % (Auto) 54.5 Lymph % (Auto) 28.6 Morris % (Auto) 9.9 Eos % (Auto) 6.3 H Baso % (Auto) 0.5 Absolute Neuts (auto) 3.5 Absolute Lymphs (auto) 1.82 Nucleated RBC % 0 Sodium 141 Potassium 3.2 L Chloride 110 H Carbon Dioxide 26.0 Anion Gap 5 BUN 8 Creatinine 0.82 Estim Creat Clear Calc 143.36 Est GFR (MDRD) Af Amer 127 Est GFR (MDRD) Non-Af 105 BUN/Creatinine Ratio 9.7 L Glucose 79 Calcium 8.6 Magnesium 1.9 Total Bilirubin 0.30 AST 23 ALT 27 Alkaline Phosphatase 100 Total Protein 6.7 Albumin 3.4 Globulin 3.3 Albumin/Globulin Ratio 1.0 Lipase 52 Discharge Plan Triage Chief Complaint: Nausea/Vomiting/Diarrhea ED Provider: Emely Mercado Dx/Rx/DC Orders Clinical Impression: Hypokalemia due to excessive gastrointestinal loss of potassium, Gastroenteritis, Acute gastroenteropathy due to Norovirus Instructions: ED Hypokalemia, ED Gastroenteritis, Viral (Adult) Prescriptions: New loperamide [Imodium A-D] 2 mg capsule 2 mg PO Q6H PRN (Reason: loose stool) Qty: 10 0RF Rx Instructions: Take 4 mg (2 capsules) for first dose. May take an additional capsule for continued loose bowel movements for up to 2 more additional pills (no more than 4 pills in 24 hours). No Action lisinopril 10 MG tablet 10 mg PO DAILY glyburide 5 MG tablet 10 mg PO BID Patient Comments: TAKE 2 TABLETS BY MOUTH TWICE DAILY venlafaxine 150 MG capsule 150 mg PO DAILY Patient Comments: TAKE 1 CAPSULE BY MOUTH ONCE DAILY budesonide-formoterol [Symbicort] 160-4.5 mcg/actuation HFA aerosol inhaler 2 puff inhalation BID Qty: 10.2 0RF pioglitazone [Actos] 45 mg Tablet 45 mg PO DAILY baclofen 20 mg Tablet 20 mg PO TID esomeprazole magnesium [Nexium] 20 mg Capsule,Delayed Release(Dr/Ec) 20 mg PO DAILY gabapentin 300 mg Tablet 300 mg PO TID doxycycline monohydrate 100 MG capsule 100 mg PO BID Qty: 20 0RF cyclobenzaprine [cyclobenzaprine] 10 mg tablet 10 mg PO TID PRN (Reason: Muscle Spasm) Qty: 20 0RF acetaminophen [Tylenol Extra Strength] 500 mg tablet 1,000 mg PO Q6H PRN (Reason: pain) Qty: 60 0RF azithromycin [azithromycin] 250 mg tablet 250 mg PO DAILY Qty: 6 0RF Rx Instructions: double dose on day #1 albuterol sulfate [Ventolin HFA] 90 mcg/actuation HFA aerosol inhaler 1 - 2 puff inhalation Q4H PRN PRN (Reason: Wheezing) Qty: 1 0RF furosemide 20 mg tablet 20 mg PO DAILY Qty: 14 0RF potassium chloride 20 mEq tablet extended release 20 meq PO BID Qty: 28 0RF gabapentin 800 mg tablet 800 mg PO DAILY Qty: 14 0RF doxycycline monohydrate 100 mg capsule 100 mg PO BID Qty: 10 0RF prednisone 20 mg tablet 60 mg PO DAILY Qty: 15 0RF ondansetron [ondansetron] 4 mg tablet,disintegrating 8 mg PO Q8H PRN PRN (Reason: Nausea) Qty: 20 0RF Primary Care Provider: Nela Bourgeois Referrals: [facility] Nela Fonseca [Primary Care Provider] - Activity Restrictions/Additional Instructions: Drink plenty of fluids. Try to eat foods rich in potassium as potassium is mildly low. Your stool cultures are pending however your C. difficile is negative and I suspect this is viral in nature and self-limiting. Disposition Disposition: Home, Self Care Discharge Date/Time: 09/23/23 11:44
[2023-09-23] MEDS: 0.9% Normal Saline (1000mL) 1,000 ML 1000 ML IV (09:05)
[2023-09-23] MEDS: Ondansetron 4 MG/2 ML Vial IV (09:05)
[2023-09-23 09:20] LABS: Absolute Lymphocyte Count 1.82 X10^3/uL (0.83-4.51); Absolute Neutrophil Count 3.5 X10^3/uL (2.0-7.7); Basophil# 0.03 X10^3/uL; Basophil% 0.5 % (0-1); Eosinophils% 6.3 % (0-5); Hematocrit 38.7 % (40-54); Hemoglobin 12.3 g/dL (13.0-16.5); Lymphocyte # 1.82 X10^3/ul (0.83-4.51); Lymphocyte % 28.6 % (19-41); Mean Corp Hgb Conc 31.8 g/dL (32-36); Mean Corpuscular Volume 91.3 fL (80-94); Mean Platelet Vol. 9.6 fl (6.2-12.0); Monocyte# 0.63 X10^3/uL; Monocyte% 9.9 % (0-10); NRBC Flagged by Analyzer 0 % (0-5); Neutrophil # 3.48 X10^3/uL (2.7-7.7); Neutrophil % 54.5 % (47-70); Platelet Count 237 K/mm3 (150-450); RBC Distribution Width CV 13.1 % (11.6-14.6); RBC Distribution Width SD 43.7 fl (35.1-43.9); Red Blood Count 4.24 M/mm3 (4.6-6.2); White Blood Count 6.4 K/mm3 (4.4-11.0)
--- OUTSIDE RECORDS SUMMARY | 2023-09-23 09:23 | XMS RPT_ITS | CCD ---
Author Name Unknown Address [address] [place] [address] Organization [facility] Care Team Providers Care Application Security Engineer Name Role Phone Rody JARAD No Mariam Unavailable [phone] ROCK TALBOT DO Admitting Unavailable ROCK TALBOT [...] Shellfish; Translations: [SHELLFISH] food allergy 08-08-19 18 [facility] Work Phone: (1 source) Soy protein; Translations: [SOY] allergy to substance 08-08-19 18 [facility] Work Phone: (1 source) PLANT POLLEN; Translations: [PLANT POLLEN] allergy to substance 08-08-19 [facility] Work Phone: (1 source) SEAFOOD; Translations: [SEAFOOD] food allergy 08-08-19 18 [facility] Work Phone: (1 source) Acetaminophen / HYDROcodone Drug Allergy [facility] (1 source) Acetaminophen / HYDROcodone Drug Allergy [facility] (1 source) benzonatate Drug Allergy [facility] (1 source) Cefuroxime Drug Allergy [facility] (1 source) Cephalexin Drug Allergy [facility] (1 source) Sulfamethoxazole / Trimethoprim Drug Allergy [facility] (1 source) 09/21/15 (-) MRSA SCREEN; Translations: [09/21/15 (-) MRSA SCREEN] Propensity to adverse reactions (disorder) [facility] Medications Completed/Discontinued Medications Medication Drug Class(es) Dates Sig (Normalized) Sig (Original) amitriptyline hydrochloride 150 mg oral tablet (1 source) Tricyclic Antidepressant Start: 8 AMITRIPTYLINE HCL 150 MG TABS one tablet at night AMITRIPTYLINE HCL [id number] No Fine APRN-TIER LIFT TRUCK OPERATOR BUDESONIDE-FORMOTEROL FUMARATE AERO (1 source) Corticosteroid, beta2-Adrenergic Agonist Start: 8 SYMBICORT AERO two puffs in the morning or when needed. BUDESONIDE-FORMOTEROL FUMARATE AERO [id number] No Fine APRN-TIER LIFT TRUCK OPERATOR cyclobenzaprine hydrochloride 10 mg oral tablet (1 source) Muscle Relaxant Start: 8 take 1 tablet by mouth every eight hours as needed CYCLOBENZAPRINE HCL 10 MG TABS Take 1 tablet by mouth every 8 hours as needed CYCLOBENZAPRINE HCL [id number] No Fine APRN-TIER LIFT TRUCK OPERATOR dexlansoprazole 30 mg disintegrating oral tablet (1 source) Proton Pump Inhibitor Start: 8 DEXILANT 30 MG CPDR one tablet at night DEXLANSOPRAZOLE [id number] No Fine APRN-TIER LIFT TRUCK OPERATOR glyBURIDE (1 source) Sulfonylurea Start: 8 GLYBURIDE TABS One tab daily GLYBURIDE TABS [id number] No Fine APRN-TIER LIFT TRUCK OPERATOR lisinopril 10 mg oral tablet (1 source) Angiotensin Converting Enzyme Inhibitor Start: 8 LISINOPRIL 10 MG TABS once at night time LISINOPRIL [id number] No Fine [facility] metFORMIN hydrochloride 500 mg oral tablet (1 source) Biguanide Start: 8 METFORMIN HCL 500 MG TABS One tab twice daily METFORMIN HCL [id number] No Fine [facility] methylprednisoLONE 4 mg oral tablet (1 source) Corticosteroid Start: 8 take 4 mg by mouth once daily MEDROL 4 MG TBPK Take by mouth daily as directed METHYLPREDNISOLONE [id number] No Fine [facility] naproxen 500 mg oral tablet (1 source) Nonsteroidal Anti-inflammatory Drug Start: 8 NAPROSYN 500 MG TABS 1 tablet BID prn pain. Take with food NAPROXEN [id number] No Fine [facility] rOPINIRole 1 mg oral tablet (1 source) Nonergot Dopamine Agonist Start: 8 REQUIP 1 MG TABS One tab daily ROPINIROLE HCL [id number] No Fine [facility] simvastatin 10 mg oral tablet (1 source) HMG-CoA Reductase Inhibitor Start: 8 SIMVASTATIN 10 MG TABS one tablet at night SIMVASTATIN [id number] No Fine [facility] Problems Active Problems Problem Classification Problem Date [...] Sign Value Performing Clinician Facility NEGATED: Highlighted [id number] 15:130400 BMI (Body Mass Index) 31.12 kg/m2 Kassi Gonzales [facility] Work Phone: NEGATED: Highlighted [id number] 15:13-0400 BP Diastolic 87 mm[Hg] Kassi Gonzales [facility] Work Phone: NEGATED: Highlighted [id number] 15:13-0400 BP Systolic 128 mm[Hg] Kassi Gonzales [facility] Work Phone: NEGATED: Highlighted [id number] 15:13-0400 Height 185.42 cm Kassi Gonzales [facility] Work Phone: NEGATED: Highlighted [id number] 15:130400 Height 185 cm Kassi Gonzales [facility] Work Phone: NEGATED: Highlighted [id number] 15:13-0400 Pulse (Heart Rate) 90 /min Kassi Gonzales [facility] Work Phone: NEGATED: Highlighted [id number] 15:13-0400 Weight 106.6 kg Kassi Gonzales [facility] Work Phone: NEGATED: Highlighted [id number] 15:130400 Weight 107 kg Kassi Gonzales [facility] Work Phone: Encounters Encounter Date Encounter Type Care Provider Facility Start: 03-20-2023 End: 03-20-2023 ambulatory Facility:[facility] Start: 03-20-2023 End: 03-20-2023 Patient encounter procedure Ross Martinez MD Work Phone: [facility] Procedures Date Procedure Procedure Detail Performing Clinician Start: 12-19-2017 End: 12-20-2017 Blood pressure within normal parameters - no follow-up required No Fine HOUSEKEEPING ASSOCIATE-TIER LIFT TRUCK OPERATOR Work Phone: Start: 12-19-2017 End: 12-20-2017 BMI documented as above normal parameters - follow-up documented No Fine HOUSEKEEPING ASSOCIATE-TIER LIFT TRUCK OPERATOR Work Phone: Start: 12-19-2017 End: 12-20-2017 Current medications documented No Fine HOUSEKEEPING ASSOCIATE-TIER LIFT TRUCK OPERATOR Work Phone: Start: 12-19-2017 End: 12-20-2017 Pain assessment documented as positive - follow-up documented No Fine HOUSEKEEPING ASSOCIATE-TIER LIFT TRUCK OPERATOR Work Phone: Start: 12-19-2017 End: 12-20-2017 Tobacco screening or cessation counseling not performed - unknown reason No Fine HOUSEKEEPING ASSOCIATE-TIER LIFT TRUCK OPERATOR Work Phone: Plan of Treatment Date Care Activity Detail Author Start: 03-15-2023 Influenza vaccination INFLUENZA (#1) [facility] Start: 07-15-2022 DEPRESSION ASSESSMENT DEPRESSION ASSESSMENT [facility] Start: 2022 SHINGRIX VACCINE (1 of 2) SHINGRIX VACCINE (1 of 2) [facility] Start: 08-18-2021 COVID-19 VACCINE (3 - Pfizer series) COVID-19 VACCINE (3 - Pfizer series) [facility] Start: 12-19-2017 End: 12-19-2017 X-ray exam of lower spine XR LUMBAR 2-3 VWS AP/LAT [facility] Work Phone: Start: 2017 COLOGUARD (FIT-DNA) COLOGUARD (FIT-DNA) [facility] Start: 2017 Colonoscopy COLONOSCOPY [facility] Start: 2017 COLORECTAL CANCER SCREENING COLORECTAL CANCER SCREENING [facility] Start: [address] COLONOGRAPHY [facility] Start: 2017 DIABETES SCREEN DIABETES SCREEN [facility] Start: 2017 FECAL OCCULT BLOOD FECAL OCCULT BLOOD [facility] Start: 2017 SIGMOIDOSCOPY SIGMOIDOSCOPY [facility] Start: 01-17-2017 LIPID SCREEN LIPID SCREEN [facility] Start: 1991 Urine microalbumin profile DTAP,TDAP,TD (1 - Tdap) [facility] Start: 1990 HEPATITIS C SCREENING HEPATITIS C SCREENING [facility] Start: 1990 HIV SCREENING HIV SCREENING [facility] Start: 1972 HEPATITIS B (1 of 3 - 3-dose series) HEPATITIS B (1 of 3 - 3-dose series) [facility] Immunizations Immunization Date Immunization Notes Care Provider Leesa li No information available. Kassi Gonzales LPN [facility] Work Phone: Payers Date Payer Category Payer Medicaid [place] [employer] [facility] MEDICAID [id number] 2023-Present [phone] [address] [place] [address] Medicaid [id number] 2023 Unknown [id number] 1972 Unknown [id number] 1972 Unknown [id number] Social History Date Type Detail Facility Start: 12-20-2017 End: 12-20-2017 Assertion Unknown if ever smoked [facility] Work Phone: Start: 1970 Sex Assigned At Not on file [facility] Gender identity Not on file [facility] in Progress note 03-20-2023 Note Date & Type Note Facility 03-20-2023 Note HNO ID: [id number] Author: Ross Martinez MD Service: ? Author [...] He does not want to go to [facility] ER because they were mean to him and yelled at him last time. [facility] History of Present illness Narrative 03-20-2023 Ross Martinez MD - 03/20/2023 7:01 PM EDT Note Date & Type Note Facility 03-20-2023 History of Presen t illness Narrative [facility] Triage Note: Patient presents to the [facility] with complaint of getting over heated at [...] He does not want to go to [facility] ER because they were mean to him and yelled at him last time. documented in this encounter [facility] Progress note 02-05-2023 Note Date & Type Note Facility 02-05-2023 Note HNO ID: [id number] Author: Christina Mitchell APRN.TIER LIFT TRUCK OPERATOR Service: ? Author Type: Nurse Practitioner Type: [...] Patient was okay with this care plan. [facility] Evaluation note Note Date & Type Note Facility documented in this encounter [facility] Instructions Instruction Description Start Date Patient [...] DATE CREATED AUTHOR AUTHOR'S ORGANIZ ATION 10/01/2022 [facility] DATE CREATED AUTHOR AUTHOR'S ORGANIZ ATION 02/03/2023 [facility] ([place]) DATE CREATED AUTHOR AUTHOR'S ORGANIZ ATION 06/30/2023 [facility] Source Comments (unrecognize d section and content) In the event this informatio n is protected by the Federal Confidentiality of Alcohol and Drug Abuse Patient Records regulations: The Federal rules restrict any use of the information to criminally investigate or prosecute any alcohol or drug abuse patient.[facility] Care Teams (unrecognized sec tion and [...] BE BASED ON THE PRIMARY CLINICAL RECORDS. [facility] [employer] [facility]. provides no warranty or guarantee of the accuracy or completeness of information in this document.
[2023-09-23 09:45] LABS: AST(SGOT) 23 U/L (15-37); Alanine Aminotransfer ALT/SGPT 27 U/L (16-61); Albumin, Serum 3.4 g/dL (3.2-5.0); Alkaline Phosphatase 100 U/L (45-117); Anion Gap 5 (5-15); BUN 8 mg/dL (7-18); BUN/Creat Ratio 9.7 RATIO (10-20); Calcium,Total 8.6 mg/dL (8.5-10.1); Chloride 110 mmol/L (98-107); Creatinine, Serum 0.82 mg/dL (0.70-1.30); EST Glomerular Filtration Rate 105 mL/min (>60); Est Glom Filt Rate - Afr Amer 127 mL/min (>60); Estimated Creatinine Clearance 143.36 ml/min; Globulin 3.3 g/dL (2.2-4.2); Glucose 79 mg/dL (74-106); Lipase 52 U/L (13-75); Magnesium 1.9 mg/dL (1.6-2.6); Potassium 3.2 mmol/L (3.5-5.1); Protein, Total 6.7 g/dL (6.4-8.2); Sodium Level 141 mmol/L (136-145)
[2023-09-23] MEDS: Potassium Chloride Oral Tablet 20 MEQ 40 MEQ PO (11:11)
[2023-09-23 11:43] VITALS: BP 127/81; PULSE 79; RESP 16; TEMP 36.1; O2SAT 98
== END 2023-09-23 11:44 | disposition home or self-care (01) ==
PROVIDERS: Emergency Provider Emergency Medicine; Visit Provider Emergency Medicine
DX: E87.6 Hypokalemia (principal); E11.9 Type 2 diabetes mellitus without complications; K52.9 Noninfective gastroenteritis and colitis, unspecified; A08.11 Acute gastroenteropathy due to Norwalk agent; I10 Essential (primary) hypertension; F17.210 Nicotine dependence, cigarettes, uncomplicated; B34.8 Other viral infections of unspecified site
CPT/HCPCS: 80053; 83630; 83690; 83735; 85025; 87177; 87209; 87493; 87506; 96361; 96374; 99282; J7030; A4216; J2405